=== PATIENT | male | born 1985 | race Caucasian/White ===

== ENCOUNTER 2017-11-10 11:00 | Emergency (ER) | payer OTHER, SELFPAY ==
[2017-11-10 11:18] VITALS: BP 155/107; PULSE 88; RESP 18; TEMP 36.6; O2SAT 99
[2017-11-10] MEDS: HALOPERIDOL 5 MG/ML VIAL IV (11:42)
[2017-11-10] MEDS: SODIUM CHLORIDE 0.9% 1,000 ML 1000 ML IV ×2 (11:42→12:53)
[2017-11-10] MEDS: LORazepam 2 MG/ML SYRINGE IV (11:48)
[2017-11-10 11:51] LABS: Add Manual Diff / Slide Review NO; Basophils Percent Auto 0.6 % (0-2); Eosinophils Percent Auto 0.1 % (2-4); Hematocrit 44.7 % (41-53); Hemoglobin 15.7 g/dL (13.5-17.5); Lymphocytes Percent Auto 16.3 % (25-40); Mean Corpuscular HGB Conc 35.1 % (30-36); Mean Corpuscular Hemoglobin 29.4 PG (26-34); Mean Corpuscular Volume 83.7 fL (80-100); Monocytes Percent Auto 3.4 % (3-14); Neutrophils Absolute Auto 9800 /uL (3000-5900); Neutrophils Percent Auto 79.6 % (50-75); Platelet Count 372 X10^3/uL (150-400); Red Blood Cell Count 5.34 X10^6/uL (4.5-5.9); Red Cell Distribution Width 13.4 % (11.6-14.8); White Blood Cell Count 12.4 X10^3/uL (4.5-11.0)
[2017-11-10 12:00] LABS: Alanine Aminotransferase 53 IU/L (21-72); Albumin 4.6 g/dL (3.5-5.0); Albumin Globulin Ratio 1.4 (1.0-2.8); Alkaline Phosphatase 65 U/L (38-126); Aspartate Aminotransferase 37 IU/L (17-59); BUN Creatinine Ratio 21.4 (6-22); Bilirubin Total 0.7 mg/dL (0.2-1.3); Blood Urea Nitrogen 15 mg/dL (9-20); Calcium 9.9 mg/dL (8.4-10.2); Carbon Dioxide 24 mmol/L (22-32); Chloride 102 mmol/L (98-107); Estimated Glomerular Filt Rate > 60.0 mL/min (>60); Globulin 3.3 g/dL (1.7-4.1); Glucose 114 mg/dL (70-100); HEMOLYSIS 17 (0-50); Potassium 3.5 mmol/L (3.4-5.1); Sodium 141 mmol/L (137-145); Total Protein 7.9 g/dL (6.3-8.2)
[2017-11-10 12:01] VITALS: BP 165/94; PULSE 74; RESP 18; O2SAT 98
[2017-11-10 12:14] VITALS: BP 155/86; PULSE 74; RESP 16; O2SAT 98
[2017-11-10 12:26] LABS: Procalcitonin < 0.05 ng/mL (<0.5)
[2017-11-10 12:54] VITALS: BP 147/82; PULSE 72; RESP 14; O2SAT 96
[2017-11-10] MEDS: HALOPERIDOL 5 MG/ML VIAL 3 MG IV (13:32)
[2017-11-10] MEDS: LORazepam 2 MG/ML SYRINGE 1 MG IV (13:32)
--- NOTE | 2017-11-10 13:40 | ED.ABDPAIN ---
HPI - Abdominal Pain General Chief Complaint: Abdominal Pain Stated Complaint: nausea,vomiting, benzo withdrawls History of Present Illness HPI narrative: HPI 32-year-old male with schizophrenia presents for evaluation of several days of nausea, vomiting, and difficulty keeping his medications down (haloperidol, clonazepam, gabapentin, escitalopram); patient reports regular every marijuana usage, partial relief with hot showers, and a correlation with prior episodes of nausea and vomiting following marijuana usage. No fevers or chills. No diarrhea. M/S/F/SocHx notable for: please see HPI; remainder reviewed with patient and in chart. ROS: Negative constitutional, eye, cardiovascular, pulmonary, GI, , MSK, skin, neurologic, psychiatric, endocrine unless noted in the HPI. Exam Gen: Pleasant, non-toxic appearing, resting comfortably. HEENT: NC, AT, PEERL, EOMI. Resp: Clear to auscultation bilaterally, normal work of breathing, no accessory muscle usage. Card: Regular rate and rhythm with no murmurs, rubs, or gallops, extremities warm and well perfused. GI: Non-tender to palpation throughout all quadrants, no focal tenderness at McBurney's point, negative Mortensen's sign, non-distended, no rebound or guarding. : No suprapubic tenderness to palpation. MSK: No visible deformities, strength and tone without visually appreciable deficit. Skin: Normal color with no visible lesions. Neuro: AO x 3, no facial asymmetry, vision and hearing WNL. Psych: unusual mood and affect Labs / Imaging: WBC 12.4, hemoglobin 15.7, sodium 141, potassium 3.5, Procalcitonin less than 0.05. MDM Previous chart, nursing note, labs, imaging, and vitals reviewed. A: 32-year-old male with schizophrenia presents for evaluation of several days of nausea, vomiting, and difficulty keeping his medications down (haloperidol, clonazepam, gabapentin, escitalopram); patient reports regular every marijuana usage, partial relief with hot showers, and a correlation with prior episodes of nausea and vomiting following marijuana usage. DDx: dehydration, electrolyte abnormalities, drug withdraw, cannabinoid hyperemesis syndrome, gastroenteritis. Evaluation: given overall history strongly suspect cannabinoid hyperemesis syndrome with secondary dehydration, no significant electrolyte abnormalities. Patient given 2 L normal saline with resumption of urine output. 5 mg haloperidol and 2 mg Ativan IV given with significant improvement of symptoms, no sedation. Further 3 mg haloperidol 1 mg Ativan given for further symptomatic treatment. Patient advised to avoid marijuana. Impression: dehydration, suspected cannabinoid hyperemesis syndrome. (please reference below for remainder of encounter information) Related Data Home Medications Medication Instructions Recorded Confirmed alprazolam 0.5 - 1 mg PO BID 11/10/17 11/10/17 asenapine [Saphris (black mcgill)] 10 mg SUBLINGUAL BID 11/10/17 11/10/17 clonazepam 1 tab PO TID 11/10/17 11/10/17 escitalopram oxalate 20 mg PO DAILY 11/10/17 11/10/17 fluphenazine HCl 1 dose PO DIRECTED 11/10/17 11/10/17 fluvoxamine 1 dose PO DIRECTED 11/10/17 11/10/17 gabapentin 1 tab PO TID 11/10/17 11/10/17 haloperidol 10 mg PO BID PRN 11/10/17 11/10/17 hydroxyzine pamoate 25 - 50 mg PO TID PRN 11/10/17 11/10/17 lorazepam 1 dose PO DIRECTED 11/10/17 11/10/17 paliperidone 1 tab PO DAILY 11/10/17 11/10/17 propranolol 20 - 40 mg PO TID 11/10/17 11/10/17 quetiapine 1 dose PO DIRECTED 11/10/17 11/10/17 Previous Rx's Medication Instructions Recorded suvorexant [Belsomra] 20 mg PO QHS #30 tab 10/09/16 Allergies Allergy/AdvReac Type Severity Reaction Status Date / Time cephalexin Allergy Mild RASH Verified 11/10/17 11:22 Exam Initial Vital Signs Initial Vital Signs: Vital Signs Temperature 97.8 F 11/10/17 11:18 Pulse Rate 88 11/10/17 11:18 Respiratory Rate 18 11/10/17 11:18 Blood Pressure 155/107 H 11/10/17 11:18 Pulse Oximetry 99 11/10/17 11:18 Course Orders Ordered: ED Orders 11/10/17 10:34 Complete Blood Count AUTO DIFF Stat Comprehensive Metabolic Panel Stat Procalcitonin Stat Sodium Chloride (Normal Saline 0.9%) 1,000 mls @ 1,000 mls/hr IV BOLUS ONE Stop: 11/10/17 13:51 Last Admin: 11/10/17 12:53 Dose: 1,000 mls/hr Discontinued Medications Haloperidol (Haldol) 5 mg IV NOW ONE Stop: 11/10/17 11:41 Last Admin: 11/10/17 11:42 Dose: 5 mg Haloperidol (Haldol) 3 mg IV NOW ONE Stop: 11/10/17 13:26 Last Admin: 11/10/17 13:32 Dose: 3 mg Sodium Chloride (Normal Saline 0.9%) 1,000 mls @ 1,000 mls/hr IV BOLUS ONE Stop: 11/10/17 12:39 Last Infusion: 11/10/17 12:52 Dose: 0 mls/hr Admin: 11/10/17 11:42 Dose: 1,000 mls/hr Lorazepam (Ativan) 2 mg IV NOW ONE Stop: 11/10/17 11:44 Last Admin: 11/10/17 11:48 Dose: 2 mg Lorazepam (Ativan) 1 mg IV NOW ONE Stop: 11/10/17 13:26 Last Admin: 11/10/17 13:32 Dose: 1 mg Vital Signs - 8 hr 11/10/17 11:18 11/10/17 12:01 11/10/17 12:14 Temperature 97.8 F Pulse Rate 88 74 74 Respiratory Rate 18 18 16 Blood Pressure 155/107 H Blood Pressure [Left Arm] 165/94 H 155/86 H Pulse Oximetry 99 98 98 11/10/17 12:54 Temperature Pulse Rate 72 Respiratory Rate 14 Blood Pressure Blood Pressure [Left Arm] 147/82 H Pulse Oximetry 96 MDM - Abdominal Pain Lab Data Result diagrams: 11/10/17 10:34 11/10/17 10:34 Lab Results 11/10/17 11/10/17 11/10/17 Range/Units 10:34 10:34 10:34 WBC 12.4 H (4.5-11.0) X10^3/uL RBC 5.34 (4.5-5.9) X10^6/uL Hgb 15.7 (13.5-17.5) g/dL Hct 44.7 (41-53) % MCV 83.7 (80-100) fL MCH 29.4 (26-34) PG MCHC 35.1 (30-36) % RDW 13.4 (11.6-14.8) % Plt Count 372 (150-400) X10^3/uL Neut % (Auto) 79.6 H (50-75) % Lymph % (Auto) 16.3 L (25-40) % [place] % (Auto) 3.4 (3-14) % Eos % (Auto) 0.1 L (2-4) % Baso % (Auto) 0.6 (0-2) % Neut # (Auto) 9800 H (0590-0944) /uL Sodium 141 (137-145) mmol/L Potassium 3.5 (3.4-5.1) mmol/L Chloride 102 (98-107) mmol/L Carbon Dioxide 24 (22-32) mmol/L BUN 15 (9-20) mg/dL Creatinine 0.70 (0.66-1.25) mg/dL Estimated GFR > 60.0 (>60) mL/min BUN/Creatinine Ratio 21.4 (6-22) Glucose 114 H (70-100) mg/dL Calcium 9.9 (8.4-10.2) mg/dL Total Bilirubin 0.7 (0.2-1.3) mg/dL AST 37 (17-59) IU/L ALT 53 (21-72) IU/L Alkaline Phosphatase 65 (38-126) U/L Total Protein 7.9 (6.3-8.2) g/dL Albumin 4.6 (3.5-5.0) g/dL Globulin 3.3 (1.7-4.1) g/dL Albumin/Globulin Ratio 1.4 (1.0-2.8) Procalcitonin < 0.05 (<0.5) ng/mL Discharge Plan Departure Prescriptions: No Action suvorexant [Belsomra] 20 MG tablet 20 mg PO QHS Qty: 30 RF: 5 clonazepam 1 mg tablet 1 tab PO TID RF: 0 escitalopram oxalate 20 mg tablet 20 mg PO DAILY RF: 0 gabapentin 600 mg tablet 1 tab PO TID RF: 0 fluphenazine HCl 10 mg tablet 1 dose PO DIRECTED RF: 0 propranolol 40 mg tablet 20 - 40 mg PO TID RF: 0 fluvoxamine 50 mg tablet 1 dose PO DIRECTED RF: 0 hydroxyzine pamoate 25 mg capsule 25 - 50 mg PO TID PRN (Reason: Anxiety) RF: 0 asenapine [Saphris (black mcgill)] 10 mg tablet, sublingual 10 mg Sublingual BID RF: 0 haloperidol 10 MG tablet 10 mg PO BID PRN (Reason: Anxiety) RF: 0 alprazolam 1 mg tablet 0.5 - 1 mg PO BID RF: 0 quetiapine 300 mg tablet 1 dose PO DIRECTED RF: 0 lorazepam 1 mg tablet 1 dose PO DIRECTED RF: 0 paliperidone 1.5 mg tablet extended release 24hr 1 tab PO DAILY RF: 0
[2017-11-10 13:59] VITALS: BP 132/78; PULSE 78; RESP 14; O2SAT 99
== END 2017-11-10 14:05 | disposition home or self-care (01) ==
PROVIDERS: Emergency Provider Emergency Medicine; PCP Family Medicine
DX: E86.0 Dehydration (principal)
CPT/HCPCS: 36591; 80053; 84145; 85025; 96361; 96374; 96375; 96376; 99284; J1630; J2060

== ENCOUNTER 2017-11-11 15:25 | Emergency (ER) | payer OTHER, SELFPAY ==
[2017-11-11 15:34] VITALS: BP 156/102; PULSE 116; RESP 20; O2SAT 99
--- NOTE | 2017-11-11 15:59 | PC.NURSE ---
pt seen yesterday, states, not better, still feels like having withdrawal. admits smokes marijuana yesterday or couple of days ago.
[2017-11-11 16:15] VITALS: BP 160/108; PULSE 105; RESP 24; O2SAT 100
[2017-11-11 16:39] LABS: Add Manual Diff / Slide Review NO; Basophils Percent Auto 0.8 % (0-2); Eosinophils Percent Auto 0.2 % (2-4); Hematocrit 45.3 % (41-53); Hemoglobin 15.8 g/dL (13.5-17.5); Lymphocytes Percent Auto 25.6 % (25-40); Mean Corpuscular HGB Conc 34.8 % (30-36); Mean Corpuscular Hemoglobin 29.3 PG (26-34); Mean Corpuscular Volume 84.3 fL (80-100); Monocytes Percent Auto 6.8 % (3-14); Neutrophils Absolute Auto 7400 /uL (3000-5900); Neutrophils Percent Auto 66.6 % (50-75); Platelet Count 409 X10^3/uL (150-400); Red Blood Cell Count 5.38 X10^6/uL (4.5-5.9); Red Cell Distribution Width 13.1 % (11.6-14.8); White Blood Cell Count 11.2 X10^3/uL (4.5-11.0)
[2017-11-11 16:42] LABS: Blood Urea Nitrogen 12 mg/dL (9-20); Calcium 9.9 mg/dL (8.4-10.2); Carbon Dioxide 22 mmol/L (22-32); Chloride 103 mmol/L (98-107); Estimated Glomerular Filt Rate > 60.0 mL/min (>60); Glucose 111 mg/dL (70-100); HEMOLYSIS 30 (0-50); Potassium 3.5 mmol/L (3.4-5.1); Sodium 141 mmol/L (137-145)
[2017-11-11] MEDS: SODIUM CHLORIDE 0.9% 1,000 ML 1000 ML IV (16:49)
[2017-11-11] MEDS: HALOPERIDOL 5 MG/ML VIAL IV (16:49)
[2017-11-11 16:55] VITALS: BP 160/95; PULSE 102; RESP 20; O2SAT 100
[2017-11-11 17:01] LABS: Lactate (Lactic Acid) 1.9 mmol/L (0.7-2.1)
[2017-11-11 17:17] LABS: Procalcitonin < 0.05 ng/mL (<0.5)
--- NOTE | 2017-11-11 17:19 | PC.NURSE ---
pt deferred cody, states, had a real bad reaction
[2017-11-11] MEDS: HALOPERIDOL 5 MG/ML VIAL 2.5 MG IV (17:37)
[2017-11-11] MEDS: LORazepam 2 MG/ML SYRINGE 1 MG IV (17:38)
[2017-11-11] MEDS: diphenhydrAMINE 50 MG/ML VIAL IV (17:38)
--- NOTE | 2017-11-11 18:09 | ED_ITS ---
HPI - Nausea/Vomiting/Diarrhea General Chief complaint: Nausea/Vomiting/Diarrhea Stated complaint: NAUSEA, VOMITING, MED W'DRAWL History of Present Illness HPI Narrative: HPI 32-year-old male with schizophrenia presents for repeat evaluation of several days of nausea, vomiting. Patient reports regular every day marijuana usage, partial relief with hot showers, and a correlation with prior episodes of nausea and vomiting following marijuana usage. No fevers or chills. No diarrhea. Notes concerning for increased akethesias after stopping Seroquel 2 weeks ago. Seroquel is stopped due to akethesias. M/S/F/SocHx notable for: please see HPI; remainder reviewed with patient and in chart. ROS: Negative constitutional, eye, cardiovascular, pulmonary, GI, , MSK, skin , neurologic, psychiatric, endocrine unless noted in the HPI. Exam Gen: Pleasant, non-toxic appearing, resting comfortably. HEENT: NC, AT, PEERL, EOMI. Resp: Clear to auscultation bilaterally, normal work of breathing, no accessory muscle usage. Card: Regular rate and rhythm with no murmurs, rubs, or gallops, extremities warm and well perfused. GI: Non-tender to palpation throughout all quadrants, no focal tenderness at McBurney's point, negative Mortensen's sign, non-distended, no rebound or guarding. : No suprapubic tenderness to palpation. MSK: No visible deformities, strength and tone without visually appreciable deficit. Skin: Normal color with no visible lesions. Neuro: AO x 3, no facial asymmetry, vision and hearing WNL. Psych: unusual mood and affect Labs / Imaging: WC 11.2, HB 15.8, sodium 141, potassium 3.5, lactate 1.9, pro- calcitonin < 0.05 MDM Previous chart, nursing note, labs, imaging, and vitals reviewed. A: 32-year-old male with schizophrenia presents for evaluation of several days of nausea, vomiting, and difficulty keeping his medications down (haloperidol, clonazepam, gabapentin, escitalopram); patient reports regular every marijuana usage, partial relief with hot showers, and a correlation with prior episodes of nausea and vomiting following marijuana usage. DDx: dehydration, electrolyte abnormalities, drug withdraw, cannabinoid hyperemesis syndrome, gastroenteritis. Evaluation: patient with a benign exam, downtrending leukocytosis, and no clear evidence of bacterial enteritis or septicemia. Laboratory values without evidence of clinically significant dehydration or electrolyte abnormalities. ED Course: 5 mg IV haloperidol, 1 mg IV Cogentin, and 1 L normal saline ordered. While patient noted they never took Cogentin before, upon administration the patient declined as he feels like he may have had an adverse reaction to it previously. 50 mg IV diphenhydramine ordered. As the patient ongoing mild symptoms and no signs of sedation 2.5 mg IV haloperidol and 1 mg Ativan were ordered for further treatment. Disposition: patient care transfer to the overnight provider pending repeat evaluation. Impression: nausea, vomiting (please reference below for remainder of encounter information) Related Data Home Medications Medication Instructions Recorded Confirmed alprazolam 0.5 - 1 mg PO BID 11/10/17 11/11/17 asenapine [Saphris (black mcgill)] 10 mg SUBLINGUAL BID 11/10/17 11/11/17 clonazepam 1 tab PO TID 11/10/17 11/11/17 escitalopram oxalate 20 mg PO DAILY 11/10/17 11/11/17 fluphenazine HCl 1 dose PO DIRECTED 11/10/17 11/11/17 fluvoxamine 1 dose PO DIRECTED 11/10/17 11/11/17 gabapentin 1 tab PO TID 11/10/17 11/11/17 haloperidol 10 mg PO BID PRN 11/10/17 11/11/17 hydroxyzine pamoate 25 - 50 mg PO TID PRN 11/10/17 11/11/17 lorazepam 1 dose PO DIRECTED 11/10/17 11/11/17 paliperidone 1 tab PO DAILY 11/10/17 11/11/17 propranolol 20 - 40 mg PO TID 11/10/17 11/11/17 quetiapine 1 dose PO DIRECTED 11/10/17 11/11/17 Previous Rx's Medication Instructions Recorded suvorexant [Belsomra] 20 mg PO QHS #30 tab 10/09/16 promethazine 25 mg rectal 25 mg [place] Q6H PRN #12 each 11/10/17 suppository Allergies Allergy/AdvReac Type Severity Reaction Status Date / Time cephalexin Allergy Mild RASH Verified 11/10/17 11:22 PFSH Social History Smoking Status: Current some day smoker Exam Initial Vital Signs Initial Vital Signs: Vital Signs Pulse Rate 116 H 11/11/17 15:34 Respiratory Rate 20 11/11/17 15:34 Blood Pressure 156/102 H 11/11/17 15:34 Pulse Oximetry 99 11/11/17 15:34 Course Orders Ordered: ED Orders 11/11/17 15:41 Basic Metabolic Panel Stat Complete Blood Count AUTO DIFF Stat Procalcitonin Stat 11/11/17 16:21 Lactate (Lactic Acid) Stat 11/11/17 16:22 Rapid Drug Screen, Urine Stat 11/11/17 16:24 Urinalysis and Microscopic Stat Discontinued Medications Benztropine Mesylate (Cogentin) 1 mg IV NOW ONE Stop: 11/11/17 16:23 Diphenhydramine HCl (Benadryl) 50 mg IV NOW ONE Stop: 11/11/17 17:27 Last Admin: 11/11/17 17:38 Dose: 50 mg Haloperidol (Haldol) 5 mg IV NOW ONE Stop: 11/11/17 16:23 Last Admin: 11/11/17 16:49 Dose: 5 mg Haloperidol (Haldol) 2.5 mg IV NOW ONE Stop: 11/11/17 17:27 Last Admin: 11/11/17 17:37 Dose: 2.5 mg Sodium Chloride (Normal Saline 0.9%) 1,000 mls @ 1,000 mls/hr IV BOLUS ONE Stop: 11/11/17 17:21 Last Admin: 11/11/17 16:49 Dose: 1,000 mls/hr Lorazepam (Ativan) 1 mg IV NOW ONE Stop: 11/11/17 17:27 Last Admin: 11/11/17 17:38 Dose: 1 mg Vital Signs - 8 hr 11/11/17 15:34 11/11/17 16:15 11/11/17 16:55 Pulse Rate 116 H 105 H 102 H Respiratory Rate 20 24 20 Blood Pressure 156/102 H Blood Pressure [Left Arm] 160/95 H Blood Pressure [Right Arm] 160/108 H Pulse Oximetry 99 100 100 MDM - Nausea/Vomiting/Diarrhea Lab Data Result diagrams: 11/11/17 15:41 11/11/17 15:41 Lab Results 11/11/17 11/11/17 11/11/17 Range/Units 15:41 15:41 15:41 WBC 11.2 H (4.5-11.0) X10^3/uL RBC 5.38 (4.5-5.9) X10^6/uL Hgb 15.8 (13.5-17.5) g/dL Hct 45.3 (41-53) % MCV 84.3 (80-100) fL MCH 29.3 (26-34) PG MCHC 34.8 (30-36) % RDW 13.1 (11.6-14.8) % Plt Count 409 H (150-400) X10^3/uL Neut % (Auto) 66.6 (50-75) % Lymph % (Auto) 25.6 (25-40) % [place] % (Auto) 6.8 (3-14) % Eos % (Auto) 0.2 L (2-4) % Baso % (Auto) 0.8 (0-2) % Neut # (Auto) 7400 H (2387-7066) /uL Sodium 141 (137-145) mmol/L Potassium 3.5 (3.4-5.1) mmol/L Chloride 103 (98-107) mmol/L Carbon Dioxide 22 (22-32) mmol/L BUN 12 (9-20) mg/dL Creatinine 0.80 (0.66-1.25) mg/dL Estimated GFR > 60.0 (>60) mL/min BUN/Creatinine Ratio 15.0 (6-22) Glucose 111 H (70-100) mg/dL Lactate (0.7-2.1) mmol/L Calcium 9.9 (8.4-10.2) mg/dL Procalcitonin < 0.05 (<0.5) ng/mL 11/11/17 Range/Units 16:21 WBC (4.5-11.0) X10^3/uL RBC (4.5-5.9) X10^6/uL Hgb (13.5-17.5) g/dL Hct (41-53) % MCV (80-100) fL MCH (26-34) PG MCHC (30-36) % RDW (11.6-14.8) % Plt Count (150-400) X10^3/uL Neut % (Auto) (50-75) % Lymph % (Auto) (25-40) % [place] % (Auto) (3-14) % Eos % (Auto) (2-4) % Baso % (Auto) (0-2) % Neut # (Auto) (1775-4016) /uL Sodium (137-145) mmol/L Potassium (3.4-5.1) mmol/L Chloride (98-107) mmol/L Carbon Dioxide (22-32) mmol/L BUN (9-20) mg/dL Creatinine (0.66-1.25) mg/dL Estimated GFR (>60) mL/min BUN/Creatinine Ratio (6-22) Glucose (70-100) mg/dL Lactate 1.9 (0.7-2.1) mmol/L Calcium (8.4-10.2) mg/dL Procalcitonin (<0.5) ng/mL Discharge Plan Departure Prescriptions: No Action suvorexant [Belsomra] 20 MG tablet 20 mg PO QHS Qty: 30 RF: 5 promethazine 25 mg suppository 25 mg VA Q6H PRN (Reason: nausea and vomiting) Qty: 12 RF: 2 clonazepam 1 mg tablet 1 tab PO TID RF: 0 escitalopram oxalate 20 mg tablet 20 mg PO DAILY RF: 0 gabapentin 600 mg tablet 1 tab PO TID RF: 0 fluphenazine HCl 10 mg tablet 1 dose PO DIRECTED RF: 0 propranolol 40 mg tablet 20 - 40 mg PO TID RF: 0 fluvoxamine 50 mg tablet 1 dose PO DIRECTED RF: 0 hydroxyzine pamoate 25 mg capsule 25 - 50 mg PO TID PRN (Reason: Anxiety) RF: 0 asenapine [Saphris (black mcgill)] 10 mg tablet, sublingual 10 mg Sublingual BID RF: 0 haloperidol 10 MG tablet 10 mg PO BID PRN (Reason: Anxiety) RF: 0 alprazolam 1 mg tablet 0.5 - 1 mg PO BID RF: 0 quetiapine 300 mg tablet 1 dose PO DIRECTED RF: 0 lorazepam 1 mg tablet 1 dose PO DIRECTED RF: 0 paliperidone 1.5 mg tablet extended release 24hr 1 tab PO DAILY RF: 0
[2017-11-11 18:14] VITALS: BP 134/96; PULSE 87; O2SAT 97
--- NOTE | 2017-11-11 18:37 | PC.NURSE ---
dr newton aware, no urine obtained, may dc when ready
== END 2017-11-11 18:44 | disposition home or self-care (01) ==
PROVIDERS: Emergency Provider Emergency Medicine; PCP Family Medicine
DX: R11.2 Nausea with vomiting, unspecified (principal)
CPT/HCPCS: 36415; 36591; 80048; 83605; 84145; 85025; 96361; 96374; 96375; 96376; 99283; 99284; J1200; J1630; J2060

== ENCOUNTER 2017-11-11 18:56 | Emergency (ER) | payer OTHER, MEDICAID, SELFPAY ==
[2017-11-11 19:23] VITALS: BP 159/98; PULSE 99; RESP 20; TEMP 36.7; O2SAT 99
--- NOTE | 2017-11-11 20:55 | ED.NAVMDI ---
HPI - Nausea/Vomiting/Diarrhea General Chief complaint: Nausea/Vomiting/Diarrhea Stated complaint: VOMITING Time Seen by Provider: 11/11/17 20:55 Source: patient and family Mode of arrival: ambulatory Limitations: no limitations History of Present Illness HPI Narrative: Patient returns to the emergency department for re-evaluation of his agitation and nausea. He has been seen and evaluated with very thorough workups a few times this week. These workups include significant lab evaluation along with fluids with essentially normal results. He was here earlier today as well. He has been feeling off for the past few weeks and symptoms seem to have started with some changes in his mental health medications. His antipsychotic medication has been changed as well as some other dosing regimens. He has developed increasing nausea and even some vomiting resulting in his inability to take a most of his medications. He denies fever or chills. He is not dizzy nor weak or lightheaded. He does feel a bit agitated and is pacing in the room. MD complaint: nausea and vomiting Onset (ago): day(s) Description of Vomiting: food contents Description of Diarrhea: none Associated Abdominal Pain: No Context: marijuana use Associated symptoms: anxiety Related Data Home Medications Medication Instructions Recorded Confirmed alprazolam 0.5 - 1 mg PO BID 11/10/17 11/11/17 asenapine [Saphris (black mcgill)] 10 mg SUBLINGUAL BID 11/10/17 11/11/17 clonazepam 1 tab PO TID 11/10/17 11/11/17 escitalopram oxalate 20 mg PO DAILY 11/10/17 11/11/17 fluphenazine HCl 1 dose PO DIRECTED 11/10/17 11/11/17 fluvoxamine 1 dose PO DIRECTED 11/10/17 11/11/17 gabapentin 1 tab PO TID 11/10/17 11/11/17 haloperidol 10 mg PO BID PRN 11/10/17 11/11/17 hydroxyzine pamoate 25 - 50 mg PO TID PRN 11/10/17 11/11/17 lorazepam 1 dose PO DIRECTED 11/10/17 11/11/17 paliperidone 1 tab PO DAILY 11/10/17 11/11/17 propranolol 20 - 40 mg PO TID 11/10/17 11/11/17 quetiapine 1 dose PO DIRECTED 11/10/17 11/11/17 Previous Rx's Medication Instructions Recorded suvorexant [Belsomra] 20 mg PO QHS #30 tab 10/09/16 promethazine 25 mg rectal 25 mg [place] Q6H PRN #12 each 11/10/17 suppository Allergies Allergy/AdvReac Type Severity Reaction Status Date / Time cephalexin Allergy Mild RASH Verified 11/10/17 11:22 Review of Systems Review of Systems All systems reviewed & are unremarkable except as noted in HPI and below Constitutional Reports anorexia, Denies chills, Denies fever(s), Denies lethargy, Reports poor appetite and Denies weakness Eyes Denies change in vision, Denies eye discharge, Denies irritation and Denies loss of vision ENT Ears, Nose, Mouth, and Throat: Denies change in voice, Denies neck pain and Denies sore throat Cardiovascular Denies chest pain, Denies irregular heart rhythm, Denies lightheadedness, Denies palpitations, Denies dyspnea, Denies dyspnea on exertion and Denies orthopnea Respiratory Denies cough, Denies dyspnea, Denies dyspnea on exertion and Denies wheezing Gastrointestinal Gastrointestinal: Denies abdominal pain, Denies change in bowel habits, Denies diarrhea, Reports nausea and Reports vomiting Genitourinary Denies hematuria, Denies flank pain, Denies urinary incontinence and Denies urinary urgency Musculoskeletal Denies neck pain Integumentary/Breasts Denies pruritus, Denies erythema, Denies rash and Denies wounds Neurologic Reports behavioral changes, Denies confusion, Denies loss of vision and Denies weakness Psychiatric Reports abnormal sleep pattern, Reports anxiety, Reports behavioral changes, Denies confusion, Denies depression, Denies homicidal ideation and Denies suicidal ideation Endocrine Denies palpitations Hematologic/Lymphatic Denies easy bruising Allergic/Immunologic Denies wheezing PFSH Social History Smoking Status: Current some day smoker Exam Narrative Exam Narrative: Pleasant but slightly agitated 32-year-old male pacing the room. He denies auditory or visual hallucinations Initial Vital Signs Initial Vital Signs: Vital Signs Temperature 98.0 F 11/11/17 19:23 Pulse Rate 99 H 11/11/17 19:23 Respiratory Rate 20 11/11/17 19:23 Blood Pressure 159/98 H 11/11/17 19:23 Pulse Oximetry 99 11/11/17 19:23 Const General: cooperative and well developed Nutritional Appearance: well nourished Orientation: alert, awake, oriented x3 and not confused [facility] Head: normocephalic and atraumatic Ears: external ears normal and TM's normal bilaterally Nose: external nose normal and No nasal discharge Face and sinus: sinuses nontender, face symmetric, no sinus tenderness and No dry mucous membranes Mouth: oral mucosae normal and moist mucous membranes Teeth and gingiva: dentition normal Throat: tonsils normal and uvula midline Neck Neck: normal visual inspection, trachea midline, No lymphadenopathy, No midline deformity and No JVD Lymphatic: No lymphedema Resp Effort & Inspection: normal respiratory effort, able to speak in complete sentences, no respiratory distress and no use of accessory muscles Auscultation: clear to auscultation bilaterally, no rales, no rhonchi and no wheezes GI Inspection: non-distended Palpation: soft, no hepatosplenomegaly, No guarding, No pulsatile mass and No tender Auscultation: normal bowel sounds Back/Spine/Pelvis Back: No CVA tenderness Cervical Spine: cervical ROM normal and No pain with cervical ROM Thoracic/Lumbar Spine: thoracic and lumbar spine normal to inspection Skin General: no rashes or lesions noted, No jaundice and No petechiae Neuro General: alert, awake and oriented x3 Psych Appearance: well kempt Speech and Movement: agitated and pressured speech Mood: congruent mood Affect: normal affect Attitude: cooperative Thought Process: normal Thought Content: normal Judgment: judgment good Course Orders Ordered: Discontinued Medications Gabapentin (Neurontin) 600 mg PO NOW ONE Stop: 11/11/17 22:09 Last Admin: 11/11/17 22:59 Dose: 600 mg Haloperidol (Haldol) 5 mg IM NOW ONE Stop: 11/11/17 21:35 Last Admin: 11/11/17 21:41 Dose: 5 mg Lorazepam (Ativan) 1 mg IM NOW ONE Stop: 11/11/17 21:35 Last Admin: 11/11/17 21:41 Dose: 1 mg Ondansetron HCl (Zofran Odt) 4 mg PO NOW ONE Stop: 11/11/17 21:35 Last Admin: 11/11/17 21:40 Dose: 4 mg Ondansetron HCl (Zofran Odt Prepack) 1 bottle MISC SEEINSTR ONE Stop: 11/12/17 00:07 Last Admin: 11/12/17 00:09 Dose: 1 bottle Vital Signs - 8 hr 06/05/18 19:23 11/11/17 23:05 11/12/17 00:15 Temperature 98.0 F 98.1 F Pulse Rate 99 H 80 93 H Respiratory Rate 20 18 Blood Pressure 159/98 H 175/100 H Blood Pressure [Left Arm] 159/100 H Pulse Oximetry 99 99 97 Discharge Plan Departure Patient Disposition: Home, Self-Care Clinical Impression: Nausea & vomiting Discharge Date/Time: 11/12/17 00:16 Interventions: ED Discharge Assessment Last Done: 11/12/17 00:15 Instructions: DI for Nausea -- Adult Activity Restrictions/Additional Instructions: *You have been diagnosed with [ nausea and vomiting ] *What to do: *Take medications as directed, it is very likely that with a gradual return to normal dosing of your medications that your agitation and nausea will return to baseline *Follow up with Dr. Segundo in the next few days. Please call tomorrow morning for an appointment *Return to ER if you should have any new, worsening or concerning symptoms Prescriptions: No Action suvorexant [Belsomra] 20 MG tablet 20 mg PO QHS Qty: 30 RF: 5 promethazine 25 mg suppository 25 mg [place] Q6H PRN (Reason: nausea and vomiting) Qty: 12 RF: 2 clonazepam 1 mg tablet 1 tab PO TID RF: 0 escitalopram oxalate 20 mg tablet 20 mg PO DAILY RF: 0 gabapentin 600 mg tablet 1 tab PO TID RF: 0 fluphenazine HCl 10 mg tablet 1 dose PO DIRECTED RF: 0 propranolol 40 mg tablet 20 - 40 mg PO TID RF: 0 fluvoxamine 50 mg tablet 1 dose PO DIRECTED RF: 0 hydroxyzine pamoate 25 mg capsule 25 - 50 mg PO TID PRN (Reason: Anxiety) RF: 0 asenapine [Saphris (black mcgill)] 10 mg tablet, sublingual 10 mg Sublingual BID RF: 0 haloperidol 10 MG tablet 10 mg PO BID PRN (Reason: Anxiety) RF: 0 alprazolam 1 mg tablet 0.5 - 1 mg PO BID RF: 0 quetiapine 300 mg tablet 1 dose PO DIRECTED RF: 0 lorazepam 1 mg tablet 1 dose PO DIRECTED RF: 0 paliperidone 1.5 mg tablet extended release 24hr 1 tab PO DAILY RF: 0 Referrals: Prasanth Causey MD [Primary Care Provider] -
[2017-11-11] MEDS: ONDANSETRON 4 MG ODT PO (21:40)
[2017-11-11] MEDS: LORazepam 2 MG/ML SYRINGE 1 MG IM (21:41)
[2017-11-11] MEDS: HALOPERIDOL 5 MG/ML VIAL IM (21:41)
--- NOTE | 2017-11-11 22:45 | PC.NURSE ---
called upstairs about gabapentin x2 since med ordered and order printed upstairs.
[2017-11-11] MEDS: GABAPENTIN 600 MG TABLET PO (22:59)
[2017-11-11 23:05] VITALS: BP 159/100; PULSE 80; O2SAT 99
[2017-11-12] MEDS: ONDANSETRON 4 MG ODT PREPACK 1 BOTTLE MISC (00:09)
[2017-11-12 00:15] VITALS: BP 175/100; PULSE 93; RESP 18; TEMP 36.7; O2SAT 97
== END 2017-11-12 00:16 | disposition home or self-care (01) ==
PROVIDERS: Emergency Provider Emergency Medicine; PCP Family Medicine
DX: R11.2 Nausea with vomiting, unspecified (principal)
CPT/HCPCS: 96372; 99283; J1630; J2060

== ENCOUNTER 2018-07-23 07:05 | Emergency (ER) | payer OTHER, MEDICAID, SELFPAY ==
--- NOTE | 2018-07-23 07:14 | ED.NAVMDI ---
HPI - Nausea/Vomiting/Diarrhea General Chief complaint: Anxiety Stated complaint: NAUSEA,VOMITING Time Seen by Provider: 07/23/18 07:07 Source: patient and family Mode of arrival: ambulatory Limitations: no limitations History of Present Illness HPI Narrative: 33-year-old male with history of smoking and marijuana use and long psychiatric history including schizophrenia presents with persistent vomiting since last evening and now an inability to keep any of his normal meds down. This is a scenario that has happened to him a few times before and it tends to be quite difficult to control. He has Zofran at home which has not provided any relief. He has become quite agitated and is pacing in the room and is visibly anxious. Vomiting multiple times during the exam. He denies any pain and is not dizzy nor weak or lightheaded. Related Data Home Medications Medication Instructions Recorded Confirmed metoprolol tartrate 50 mg tablet 50 mg PO BID 11/20/17 07/23/18 asenapine [Saphris] 10 mg SUBLINGUAL BID 07/23/18 07/23/18 clonazepam 2 mg PO BID 07/23/18 07/23/18 diphenhydramine HCl [Benadryl 50 mg PO BEDTIME 07/23/18 07/23/18 Allergy] gabapentin 300 mg PO BID 07/23/18 07/23/18 gabapentin 600 mg PO BEDTIME 07/23/18 07/23/18 haloperidol 2.5 mg PO BID 07/23/18 07/23/18 Previous Rx's Medication Instructions Recorded sertraline 100 mg tablet 100 mg PO DAILY #30 tab 06/29/18 alprazolam 1 mg tablet 1 mg PO BID #60 tab 07/13/18 prazosin 1 mg capsule 1 mg PO BEDTIME #30 cap 07/17/18 ondansetron 4 mg PO TID-QID PRN #10 tab 07/23/18 promethazine [Phenergan] 25 mg AL Q4-6H PRN #12 each 07/23/18 Allergies Allergy/AdvReac Type Severity Reaction Status Date / Time cephalexin Allergy Mild RASH Verified 07/23/18 07:21 Review of Systems Constitutional Denies chills, Denies fever(s), Denies lethargy and Denies weakness Eyes Denies change in vision, Denies eye discharge, Denies irritation and Denies loss of vision ENT Ears, Nose, Mouth, and Throat: Denies change in voice, Denies neck pain and Denies sore throat Cardiovascular Denies chest pain, Denies irregular heart rhythm, Denies lightheadedness, Denies palpitations, Denies dyspnea, Denies dyspnea on exertion and Denies orthopnea Respiratory Denies cough, Denies dyspnea, Denies dyspnea on exertion and Denies wheezing Gastrointestinal Gastrointestinal: Denies abdominal pain, Denies change in bowel habits, Denies diarrhea, Reports nausea and Reports vomiting Genitourinary Denies hematuria, Denies flank pain, Denies urinary incontinence and Denies urinary urgency Musculoskeletal Denies neck pain Integumentary/Breasts Denies pruritus, Denies erythema, Denies rash and Denies wounds Neurologic Denies confusion, Denies loss of vision and Denies weakness Psychiatric Reports anxiety, Denies confusion, Denies depression, Denies homicidal ideation and Denies suicidal ideation Endocrine Denies palpitations Hematologic/Lymphatic Denies easy bruising Allergic/Immunologic Denies wheezing [facility] Medical History RLS (restless legs syndrome) (Chronic ~1986) Schizophrenia (Chronic ~1992) Surgical History No history of previous surgery (Resolved 02/14/15) Family History Grandfather Heart disease Social History Smoking Status: Current every day smoker Family History Grandfather Heart disease Social History Smoking Status: Current every day smoker Exam Narrative Exam Narrative: GENERAL:33M visibly in distress, anxious pacing in the room vomiting on occasion, pressured speech and a bit paranoid HEAD: Atraumatic. Normocephalic. No temporal or scalp tenderness. EYES: Pupils equal round and reactive. Extraocular motions intact. No scleral icterus. No injection or drainage. ENT: Nose without bleeding, purulent drainage or septal hematoma. Throat without erythema, tonsillar hypertrophy or exudate. Uvula midline. Airway patent. NECK: Trachea midline. No JVD or lymphadenopathy. Supple, nontender, no meningeal signs. CARDIOVASCULAR: Regular rate and rhythm without murmurs, gallops, or rubs. RESPIRATORY: Clear to auscultation. Breath sounds equal bilaterally. No wheezes, rales, or rhonchi. GASTROINTESTINAL: Abdomen soft, non-tender, nondistended. No hepato-splenomegaly, or palpable masses. No guarding. EXTREMITIES: No clubbing, cyanosis, or edema. No joint tenderness, effusion, or edema noted. BACK: Nontender without deformity or crepitance. No flank tenderness. NEURO: AOx3. SKIN: No rash or erythema. Initial Vital Signs Initial Vital Signs: Vital Signs Temperature 96.4 F L 07/23/18 07:21 Pulse Rate 63 07/23/18 07:21 Respiratory Rate 22 07/23/18 07:21 Blood Pressure 155/100 H 07/23/18 07:21 Pulse Oximetry 100 07/23/18 07:21 Course Orders Ordered: Discontinued Medications Clonazepam (Klonopin) 1 mg PO NOW ONE Stop: 07/23/18 13:18 Last Admin: 07/23/18 13:34 Dose: 1 mg Gabapentin (Neurontin) 300 mg PO NOW ONE Stop: 07/23/18 13:18 Last Admin: 07/23/18 13:34 Dose: 300 mg Haloperidol (Haldol) 2 mg IV NOW ONE Stop: 07/23/18 07:44 Last Admin: 07/23/18 08:00 Dose: 2 mg Haloperidol (Haldol) 2 mg IV NOW ONE Stop: 07/23/18 08:41 Last Admin: 07/23/18 08:41 Dose: 2 mg Sodium Chloride (Normal Saline 0.9%) 1,000 mls @ 1,000 mls/hr IV BOLUS ONE Stop: 07/23/18 08:38 Last Infusion: 07/23/18 11:54 Dose: 1,000 mls/hr Admin: 07/23/18 08:00 Dose: 1,000 mls/hr Lorazepam (Ativan) 1 mg IV NOW ONE Stop: 07/23/18 07:40 Last Admin: 07/23/18 08:00 Dose: 1 mg Lorazepam (Ativan) 1 mg IV NOW ONE Stop: 07/23/18 08:42 Last Admin: 07/23/18 08:41 Dose: 1 mg Nicotine (Nicoderm) 21 mg TOP NOW ONE Stop: 07/23/18 13:09 Last Admin: 07/23/18 13:45 Dose: 21 mg Ondansetron HCl (Zofran) 4 mg IV Q4HR PRN PRN Reason: Nausea And Vomiting Last Admin: 07/23/18 08:01 Dose: 4 mg Promethazine HCl (Phenadoz) 25 mg AL NOW ONE Stop: 07/23/18 12:00 Last Admin: 07/23/18 12:22 Dose: 25 mg Reevaluation(s) Reevaluation #1: Patient has some definite improvement of nausea with above-stated medications but his antipsychotic do not seem to be helping, he has ramping up and pacing through the room. He has ripped his IV out and insists upon going outside to smoke a cigarette. While he is briefly departed his mother has contacted his psychiatric provider and we have requested the presence of our medical social workers Reevaluation #2: Patient started feeling much better after rectal promethazine and was able to keep his oral medications down. He and mother able to contract for safety and request discharge, and have elected to leave and will follow up closely with their primary care providers and psychiatric care team. We were unable to elicit the help of our social workers and [facility] and family decided to leave Vital Signs - 8 hr 07/23/18 14:15 Pulse Rate 79 Respiratory Rate 22 Blood Pressure [Right Arm] 163/91 H MDM - Nausea/Vomiting/Diarrhea Lab Data Result diagrams: 07/23/18 07:50 07/23/18 07:50 Lab Results 07/23/18 07/23/18 07/23/18 Range/Units 07:50 07:50 07:50 WBC 12.3 H (4.5-11.0) X10^3/uL RBC 5.55 (4.5-5.9) X10^6/uL Hgb 16.3 (13.5-17.5) g/dL Hct 48.7 (41-53) % MCV 87.7 (80-100) fL MCH 29.3 (26-34) PG MCHC 33.4 (30-36) % RDW 13.9 (11.6-14.8) % Plt Count 310 (150-400) X10^3/uL Neut % (Auto) 84.3 H (50-75) % Lymph % (Auto) 12.0 L (25-40) % [place] % (Auto) 2.6 L (3-14) % Eos % (Auto) 0.1 L (2-4) % Baso % (Auto) 1.0 (0-2) % Neut # (Auto) 26761 H (5614-8100) /uL Lymph # (Auto) 1500 (8380-2021) /uL [place] # (Auto) 300 (0-900) /uL Eos # (Auto) 0 (0-450) /uL Baso # (Auto) 100 (0-100) /uL Sodium 141 (137-145) mmol/L Potassium 3.7 (3.4-5.1) mmol/L Chloride 104 (98-107) mmol/L Carbon Dioxide 24 (22-32) mmol/L BUN 16 (9-20) mg/dL Creatinine 0.80 (0.66-1.25) mg/dL Estimated GFR > 60.0 (>60) mL/min BUN/Creatinine Ratio 20.0 (6-22) Glucose 151 H (70-100) mg/dL Calcium 10.3 H (8.4-10.2) mg/dL TSH 0.75 (0.47-4.68) uIU/mL Thyroxine (T4) 11.70 H (5.5-11.0) ug/dL Urine Opiates Screen (Negative) Ur Oxycodone Screen (Negative) Urine Methadone Screen (Negative) Ur Barbiturates Screen (Negative) U Tricyclic Antidepress (Negative) Ur Phencyclidine Scrn (Negative) Ur Amphetamines Screen (Negative) U Methamphetamines Scrn (Negative) Ur MDMA Scrn (Ecstasy) (Negative) U Benzodiazepines Scrn (Negative) Urine Cocaine Screen (Negative) U Marijuana (THC) Screen (Negative) 07/23/18 Range/Units 11:30 WBC (4.5-11.0) X10^3/uL RBC (4.5-5.9) X10^6/uL Hgb (13.5-17.5) g/dL Hct (41-53) % MCV (80-100) fL MCH (26-34) PG MCHC (30-36) % RDW (11.6-14.8) % Plt Count (150-400) X10^3/uL Neut % (Auto) (50-75) % Lymph % (Auto) (25-40) % [place] % (Auto) (3-14) % Eos % (Auto) (2-4) % Baso % (Auto) (0-2) % Neut # (Auto) (6545-9793) /uL Lymph # (Auto) (1091-1334) /uL [place] # (Auto) (0-900) /uL Eos # (Auto) (0-450) /uL Baso # (Auto) (0-100) /uL Sodium (137-145) mmol/L Potassium (3.4-5.1) mmol/L Chloride (98-107) mmol/L Carbon Dioxide (22-32) mmol/L BUN (9-20) mg/dL Creatinine (0.66-1.25) mg/dL Estimated GFR (>60) mL/min BUN/Creatinine Ratio (6-22) Glucose (70-100) mg/dL Calcium (8.4-10.2) mg/dL TSH (0.47-4.68) uIU/mL Thyroxine (T4) (5.5-11.0) ug/dL Urine Opiates Screen Negative (Negative) Ur Oxycodone Screen Negative (Negative) Urine Methadone Screen Negative (Negative) Ur Barbiturates Screen Negative (Negative) U Tricyclic Antidepress Negative (Negative) Ur Phencyclidine Scrn Negative (Negative) Ur Amphetamines Screen Negative (Negative) U Methamphetamines Scrn Negative (Negative) Ur MDMA Scrn (Ecstasy) Negative (Negative) U Benzodiazepines Scrn Negative (Negative) Urine Cocaine Screen Negative (Negative) U Marijuana (THC) Screen Positive H (Negative) MDM Narrative Medical decision making narrative: Multiple etiologies for patient's symptoms considered including: [ cyclic vomiting, cannabis hyperemesis syndrome, medical noncompliance, gastroenteritis versus other] Patient's symptoms improved or duration of stay with above-stated therapies. Findings and discharge diagnosis discussed with patient/family followed by verbalization of understanding Return precautions discussed with patient/family whom verbalize understanding. Discharge Plan Departure Patient Disposition: Home Clinical Impression: Acute anxiety Vomiting Qualifiers: Vomiting type: unspecified Vomiting Intractability: non-intractable Nausea presence: with nausea Qualified Code(s): R11.2 - Nausea with vomiting, unspecified Discharge Date/Time: 07/23/18 14:28 Interventions: ED Discharge Assessment Last Done: 07/23/18 14:28 Instructions: Anxiety Disorders, DI for Vomiting -- Adult Activity Restrictions/Additional Instructions: *You have been diagnosed with [ acute vomiting ] *What to do: *Take medications as directed *Follow up with your primary care provider in 2-3 days, call for an appointment. Let them know you were seen in the Emergency Department and that we ask that you be seen in follow up *Return to ER if you should have any new, worsening or concerning symptoms Prescriptions: New promethazine [Phenergan] 25 mg suppository 25 mg AL Q4-6H PRN (Reason: nausea and vomiting) Qty: 12 RF: 0 ondansetron 4 mg tablet,disintegrating 4 mg PO TID-QID PRN (Reason: nausea and vomiting) Qty: 10 RF: 0 No Action prazosin 1 mg capsule 1 mg PO BEDTIME Qty: 30 RF: 0 metoprolol tartrate 50 mg tablet 50 mg PO BID RF: 0 sertraline 100 mg tablet 100 mg PO DAILY Qty: 30 RF: 5 alprazolam 1 mg tablet 1 mg PO BID Qty: 60 RF: 1 gabapentin 600 mg tablet 300 mg PO BID RF: 0 clonazepam 2 mg tablet 2 mg PO BID RF: 0 Saphris 10 mg tablet, sublingual 10 mg Sublingual BID RF: 0 gabapentin 600 mg tablet 600 mg PO BEDTIME RF: 0 haloperidol 5 mg tablet 2.5 mg PO BID RF: 0 diphenhydramine HCl [Benadryl Allergy] 25 mg Tablet 50 mg PO BEDTIME RF: 0 Referrals: Prasanth Causey MD [Primary Care Provider] -
[2018-07-23 07:21] VITALS: BP 155/100; PULSE 63; RESP 22; TEMP 35.8; O2SAT 100; BMI 16.4
[2018-07-23 07:59] LABS: Add Manual Diff / Slide Review NO; Basophils Absolute Auto 100 /uL (0-100); Eosinophils Absolute Auto 0 /uL (0-450); Eosinophils Percent Auto 0.1 % (2-4); Hematocrit 48.7 % (41-53); Hemoglobin 16.3 g/dL (13.5-17.5); Lymphocytes Absolute Auto 1500 /uL (1100-4500); Mean Corpuscular HGB Conc 33.4 % (30-36); Mean Corpuscular Hemoglobin 29.3 PG (26-34); Mean Corpuscular Volume 87.7 fL (80-100); Monocytes Absolute Auto 300 /uL (0-900); Monocytes Percent Auto 2.6 % (3-14); Neutrophils Absolute Auto 10400 /uL (1500-7000); Neutrophils Percent Auto 84.3 % (50-75); Platelet Count 310 X10^3/uL (150-400); Red Blood Cell Count 5.55 X10^6/uL (4.5-5.9); Red Cell Distribution Width 13.9 % (11.6-14.8); White Blood Cell Count 12.3 X10^3/uL (4.5-11.0)
[2018-07-23] MEDS: LORazepam 2 MG/ML SYRINGE 1 MG IV ×2 (08:00→08:41)
[2018-07-23] MEDS: HALOPERIDOL 5 MG/ML VIAL 2 MG IV ×2 (08:00→08:41)
[2018-07-23] MEDS: SODIUM CHLORIDE 0.9% 1,000 ML 1000 ML IV (08:00)
[2018-07-23] MEDS: ONDANSETRON 4 MG/2 ML INJ IV (08:01)
[2018-07-23 08:09] LABS: Blood Urea Nitrogen 16 mg/dL (9-20); Calcium 10.3 mg/dL (8.4-10.2); Carbon Dioxide 24 mmol/L (22-32); Chloride 104 mmol/L (98-107); Estimated Glomerular Filt Rate > 60.0 mL/min (>60); Glucose 151 mg/dL (70-100); HEMOLYSIS < 15 (0-50); Potassium 3.7 mmol/L (3.4-5.1); Sodium 141 mmol/L (137-145)
--- NOTE | 2018-07-23 10:39 | PC.NURSE ---
pt given crackers and water for oral challenge.
--- NOTE | 2018-07-23 11:27 | PC.NURSE ---
pt walking out of room with jacket on. i asked pt if i could see his IV site. pt agreed and i placed 2x2 and coban. pt then decided to walk out. pt did return 15min later. pt walking the [place], some jogging. pt is anxious per mom.
[2018-07-23 11:38] LABS: Urine Amphetamines Negative (Negative); Urine Barbiturates Negative (Negative); Urine Benzodiazepines Negative (Negative); Urine Cocaine Negative (Negative); Urine MDMA Negative (Negative); Urine Methadone Negative (Negative); Urine Methamphetamines Negative (Negative); Urine Morphine/Opi cutoff 2000 Negative (Negative); Urine Oxycodone Negative (Negative); Urine Phencyclidine Negative (Negative); Urine Tetrahydrocannabinol Positive (Negative); Urine Tricyclic Antidepressant Negative (Negative)
[2018-07-23 11:58] LABS: Thyroid Stimulating Hormone 0.75 uIU/mL (0.47-4.68)
--- NOTE | 2018-07-23 11:59 | ED_ITS ---
HPI - Nausea/Vomiting/Diarrhea General Chief complaint: Anxiety Stated complaint: NAUSEA,VOMITING Time Seen by Provider: 07/23/18 07:07 Source: patient and family Mode of arrival: ambulatory Limitations: no limitations History of Present Illness HPI Narrative: 33-year-old male with history of smoking and marijuana use and long psychiatric history including schizophrenia presents with persistent vomiting since last evening and now an inability to keep any of his normal meds down. This is a scenario that has happened to him a few times before and it tends to be quite difficult to control. He has Zofran at home which has not provided any relief. He has become quite agitated and is pacing in the room and is visibly anxious. Vomiting multiple times during the exam. He denies any pain and is not dizzy nor weak or lightheaded. Related Data Home Medications Medication Instructions Recorded Confirmed metoprolol tartrate 50 mg tablet 50 mg PO BID 11/20/17 07/23/18 asenapine [Saphris] 10 mg SUBLINGUAL BID 07/23/18 07/23/18 clonazepam 2 mg PO BID 07/23/18 07/23/18 diphenhydramine HCl [Benadryl 50 mg PO BEDTIME 07/23/18 07/23/18 Allergy] gabapentin 300 mg PO BID 07/23/18 07/23/18 gabapentin 600 mg PO BEDTIME 07/23/18 07/23/18 haloperidol 2.5 mg PO BID 07/23/18 07/23/18 Previous Rx's Medication Instructions Recorded sertraline 100 mg tablet 100 mg PO DAILY #30 tab 06/29/18 alprazolam 1 mg tablet 1 mg PO BID #60 tab 07/13/18 prazosin 1 mg capsule 1 mg PO BEDTIME #30 cap 07/17/18 ondansetron 4 mg PO TID-QID PRN #10 tab 07/23/18 promethazine [Phenergan] 25 mg SD Q4-6H PRN #12 each 07/23/18 Allergies Allergy/AdvReac Type Severity Reaction Status Date / Time cephalexin Allergy Mild RASH Verified 07/23/18 07:21 Review of Systems Constitutional Denies chills, Denies fever(s), Denies lethargy and Denies weakness Eyes Denies change in vision, Denies eye discharge, Denies irritation and Denies loss of vision ENT Ears, Nose, Mouth, and Throat: Denies change in voice, Denies neck pain and Denies sore throat Cardiovascular Denies chest pain, Denies irregular heart rhythm, Denies lightheadedness, Denies palpitations, Denies dyspnea, Denies dyspnea on exertion and Denies orthopnea Respiratory Denies cough, Denies dyspnea, Denies dyspnea on exertion and Denies wheezing Gastrointestinal Gastrointestinal: Denies abdominal pain, Denies change in bowel habits, Denies diarrhea, Reports nausea and Reports vomiting Genitourinary Denies hematuria, Denies flank pain, Denies urinary incontinence and Denies urinary urgency Musculoskeletal Denies neck pain Integumentary/Breasts Denies pruritus, Denies erythema, Denies rash and Denies wounds Neurologic Denies confusion, Denies loss of vision and Denies weakness Psychiatric Reports anxiety, Denies confusion, Denies depression, Denies homicidal ideation and Denies suicidal ideation Endocrine Denies palpitations Hematologic/Lymphatic Denies easy bruising Allergic/Immunologic Denies wheezing [facility] Medical History RLS (restless legs syndrome) (Chronic ~1986) Schizophrenia (Chronic ~1992) Surgical History No history of previous surgery (Resolved 02/14/15) Family History Grandfather Heart disease Social History Smoking Status: Current every day smoker Family History Grandfather Heart disease Social History Smoking Status: Current every day smoker Exam Narrative Exam Narrative: GENERAL:33M visibly in distress, anxious pacing in the room vomiting on occasion, pressured speech and a bit paranoid HEAD: Atraumatic. Normocephalic. No temporal or scalp tenderness. EYES: Pupils equal round and reactive. Extraocular motions intact. No scleral icterus. No injection or drainage. ENT: Nose without bleeding, purulent drainage or septal hematoma. Throat without erythema, tonsillar hypertrophy or exudate. Uvula midline. Airway patent. NECK: Trachea midline. No JVD or lymphadenopathy. Supple, nontender, no mening eal signs. CARDIOVASCULAR: Regular rate and rhythm without murmurs, gallops, or rubs. RESPIRATORY: Clear to auscultation. Breath sounds equal bilaterally. No wheezes, rales, or rhonchi. GASTROINTESTINAL: Abdomen soft, non-tender, nondistended. No hepato- splenomegaly, or palpable masses. No guarding. EXTREMITIES: No clubbing, cyanosis, or edema. No joint tenderness, effusion, or edema noted. BACK: Nontender without deformity or crepitance. No flank tenderness. NEURO: AOx3. SKIN: No rash or erythema. Initial Vital Signs Initial Vital Signs: Vital Signs Temperature 96.4 F L 07/23/18 07:21 Pulse Rate 63 07/23/18 07:21 Respiratory Rate 22 07/23/18 07:21 Blood Pressure 155/100 H 07/23/18 07:21 Pulse Oximetry 100 07/23/18 07:21 Course Orders Ordered: Discontinued Medications Clonazepam (Klonopin) 1 mg PO NOW ONE Stop: 07/23/18 13:18 Last Admin: 07/23/18 13:34 Dose: 1 mg Gabapentin (Neurontin) 300 mg PO NOW ONE Stop: 07/23/18 13:18 Last Admin: 07/23/18 13:34 Dose: 300 mg Haloperidol (Haldol) 2 mg IV NOW ONE Stop: 07/23/18 07:44 Last Admin: 07/23/18 08:00 Dose: 2 mg Haloperidol (Haldol) 2 mg IV NOW ONE Stop: 07/23/18 08:41 Last Admin: 07/23/18 08:41 Dose: 2 mg Sodium Chloride (Normal Saline 0.9%) 1,000 mls @ 1,000 mls/hr IV BOLUS ONE Stop: 07/23/18 08:38 Last Infusion: 07/23/18 11:54 Dose: 1,000 mls/hr Admin: 07/23/18 08:00 Dose: 1,000 mls/hr Lorazepam (Ativan) 1 mg IV NOW ONE Stop: 07/23/18 07:40 Last Admin: 07/23/18 08:00 Dose: 1 mg Lorazepam (Ativan) 1 mg IV NOW ONE Stop: 07/23/18 08:42 Last Admin: 07/23/18 08:41 Dose: 1 mg Nicotine (Nicoderm) 21 mg TOP NOW ONE Stop: 07/23/18 13:09 Last Admin: 07/23/18 13:45 Dose: 21 mg Ondansetron HCl (Zofran) 4 mg IV Q4HR PRN PRN Reason: Nausea And Vomiting Last Admin: 07/23/18 08:01 Dose: 4 mg Promethazine HCl (Phenadoz) 25 mg SD NOW ONE Stop: 07/23/18 12:00 Last Admin: 07/23/18 12:22 Dose: 25 mg Reevaluation(s) Reevaluation #1: Patient has some definite improvement of nausea with above- stated medications but his antipsychotic do not seem to be helping, he has ramping up and pacing through the room. He has ripped his IV out and insists upon going outside to smoke a cigarette. While he is briefly departed his mother has contacted his psychiatric provider and we have requested the presence of our medical social workers Reevaluation #2: Patient started feeling much better after rectal promethazine and was able to keep his oral medications down. He and mother able to contract for safety and request discharge, and have elected to leave and will follow up closely with their primary care providers and psychiatric care team. We were unable to elicit the help of our social workers and [facility] and family decided to leave Vital Signs - 8 hr 07/23/18 14:15 Pulse Rate 79 Respiratory Rate 22 Blood Pressure [Right Arm] 163/91 H MDM - Nausea/Vomiting/Diarrhea Lab Data Result diagrams: 07/23/18 07:50 07/23/18 07:50 Lab Results 07/23/18 07/23/18 07/23/18 Range/Units 07:50 07:50 07:50 WBC 12.3 H (4.5-11.0) X10^3/uL RBC 5.55 (4.5-5.9) X10^6/uL Hgb 16.3 (13.5-17.5) g/dL Hct 48.7 (41-53) % MCV 87.7 (80-100) fL MCH 29.3 (26-34) PG MCHC 33.4 (30-36) % RDW 13.9 (11.6-14.8) % Plt Count 310 (150-400) X10^3/uL Neut % (Auto) 84.3 H (50-75) % Lymph % (Auto) 12.0 L (25-40) % [place] % (Auto) 2.6 L (3-14) % Eos % (Auto) 0.1 L (2-4) % Baso % (Auto) 1.0 (0-2) % Neut # (Auto) 08344 H (8924-8136) /uL Lymph # (Auto) 1500 (0584-2729) /uL [place] # (Auto) 300 (0-900) /uL Eos # (Auto) 0 (0-450) /uL Baso # (Auto) 100 (0-100) /uL Sodium 141 (137-145) mmol/L Potassium 3.7 (3.4-5.1) mmol/L Chloride 104 (98-107) mmol/L Carbon Dioxide 24 (22-32) mmol/L BUN 16 (9-20) mg/dL Creatinine 0.80 (0.66-1.25) mg/dL Estimated GFR > 60.0 (>60) mL/min BUN/Creatinine Ratio 20.0 (6-22) Glucose 151 H (70-100) mg/dL Calcium 10.3 H (8.4-10.2) mg/dL TSH 0.75 (0.47-4.68) uIU/mL Thyroxine (T4) 11.70 H (5.5-11.0) ug/dL Urine Opiates Screen (Negative) Ur Oxycodone Screen (Negative) Urine Methadone Screen (Negative) Ur Barbiturates Screen (Negative) U Tricyclic Antidepress (Negative) Ur Phencyclidine Scrn (Negative) Ur Amphetamines Screen (Negative) U Methamphetamines Scrn (Negative) Ur MDMA Scrn (Ecstasy) (Negative) U Benzodiazepines Scrn (Negative) Urine Cocaine Screen (Negative) U Marijuana (THC) Screen (Negative) 07/23/18 Range/Units 11:30 WBC (4.5-11.0) X10^3/uL RBC (4.5-5.9) X10^6/uL Hgb (13.5-17.5) g/dL Hct (41-53) % MCV (80-100) fL MCH (26-34) PG MCHC (30-36) % RDW (11.6-14.8) % Plt Count (150-400) X10^3/uL Neut % (Auto) (50-75) % Lymph % (Auto) (25-40) % [place] % (Auto) (3-14) % Eos % (Auto) (2-4) % Baso % (Auto) (0-2) % Neut # (Auto) (9468-5112) /uL Lymph # (Auto) (8225-2806) /uL [place] # (Auto) (0-900) /uL Eos # (Auto) (0-450) /uL Baso # (Auto) (0-100) /uL Sodium (137-145) mmol/L Potassium (3.4-5.1) mmol/L Chloride (98-107) mmol/L Carbon Dioxide (22-32) mmol/L BUN (9-20) mg/dL Creatinine (0.66-1.25) mg/dL Estimated GFR (>60) mL/min BUN/Creatinine Ratio (6-22) Glucose (70-100) mg/dL Calcium (8.4-10.2) mg/dL TSH (0.47-4.68) uIU/mL Thyroxine (T4) (5.5-11.0) ug/dL Urine Opiates Screen Negative (Negative) Ur Oxycodone Screen Negative (Negative) Urine Methadone Screen Negative (Negative) Ur Barbiturates Screen Negative (Negative) U Tricyclic Antidepress Negative (Negative) Ur Phencyclidine Scrn Negative (Negative) Ur Amphetamines Screen Negative (Negative) U Methamphetamines Scrn Negative (Negative) Ur MDMA Scrn (Ecstasy) Negative (Negative) U Benzodiazepines Scrn Negative (Negative) Urine Cocaine Screen Negative (Negative) U Marijuana (THC) Screen Positive H (Negative) MDM Narrative Medical decision making narrative: Multiple etiologies for patient's symptoms considered including: [ cyclic vomiting, cannabis hyperemesis syndrome, medical noncompliance, gastroenteritis versus other] Patient's symptoms improved or duration of stay with above-stated therapies. Findings and discharge diagnosis discussed with patient/family followed by verbalization of understanding Return precautions discussed with patient/family whom verbalize understanding. Discharge Plan Departure Patient Disposition: Home Clinical Impression: Acute anxiety Vomiting Qualifiers: Vomiting type: unspecified Vomiting Intractability: non-intractable Nausea presence: with nausea Qualified Code(s): R11.2 - Nausea with vomiting, unspecified Discharge Date/Time: 07/23/18 14:28 Interventions: ED Discharge Assessment Last Done: 07/23/18 14:28 Instructions: Anxiety Disorders, DI for Vomiting -- Adult Activity Restrictions/Additional Instructions: *You have been diagnosed with [ acute vomiting ] *What to do: *Take medications as directed *Follow up with your primary care provider in 2-3 days, call for an appointment. Let them know you were seen in the Emergency Department and that we ask that you be seen in follow up *Return to ER if you should have any new, worsening or concerning symptoms Prescriptions: New promethazine [Phenergan] 25 mg suppository 25 mg SD Q4-6H PRN (Reason: nausea and vomiting) Qty: 12 RF: 0 ondansetron 4 mg tablet,disintegrating 4 mg PO TID-QID PRN (Reason: nausea and vomiting) Qty: 10 RF: 0 No Action prazosin 1 mg capsule 1 mg PO BEDTIME Qty: 30 RF: 0 metoprolol tartrate 50 mg tablet 50 mg PO BID RF: 0 sertraline 100 mg tablet 100 mg PO DAILY Qty: 30 RF: 5 alprazolam 1 mg tablet 1 mg PO BID Qty: 60 RF: 1 gabapentin 600 mg tablet 300 mg PO BID RF: 0 clonazepam 2 mg tablet 2 mg PO BID RF: 0 Saphris 10 mg tablet, sublingual 10 mg Sublingual BID RF: 0 gabapentin 600 mg tablet 600 mg PO BEDTIME RF: 0 haloperidol 5 mg tablet 2.5 mg PO BID RF: 0 diphenhydramine HCl [Benadryl Allergy] 25 mg Tablet 50 mg PO BEDTIME RF: 0 Referrals: Prasanth Causey MD [Primary Care Provider] -
[2018-07-23] MEDS: PROMETHAZINE 25 MG SUPP PR (12:22)
[2018-07-23] MEDS: clonazePAM 0.5 MG TABLET 1 MG PO (13:34)
[2018-07-23] MEDS: GABAPENTIN 300 MG CAPSULE PO (13:34)
[2018-07-23] MEDS: NICOTINE 21 MG PATCH TOP (13:45)
[2018-07-23 14:15] VITALS: BP 163/91; PULSE 79; RESP 22
--- NOTE | 2018-07-23 14:15 | PC.NURSE ---
pt has had a cup of ice and water.
--- NOTE | 2018-07-23 14:21 | PC.NURSE ---
called [facility] at 1100. spoke with triage and they are aware of possibility of assistance. pt has been able to hold down water and saltines. pt at 1330 agreed to attempt home meds. if able to keep down pt may go home. mom agrees this is a good plan.
--- NOTE | 2018-07-30 12:01 | PC.NURSE ---
late entry, nicotine patch removed at discharge.
== END 2018-07-23 14:28 | disposition home or self-care (01) ==
PROVIDERS: Emergency Provider Emergency Medicine; PCP Family Medicine
DX: F41.9 Anxiety disorder, unspecified (principal); R11.2 Nausea with vomiting, unspecified
CPT/HCPCS: 36591; 80048; 80305; 84436; 84443; 85025; 96361; 96374; 96375; 96376; 99283; 99284; J1630; J2060; J2405

== ENCOUNTER 2018-07-28 23:47 | Emergency (ER) | payer OTHER, MEDICAID, SELFPAY ==
[2018-07-29] MEDS: LORazepam 2 MG/ML SYRINGE 1 MG IV ×2 (00:24→05:30)
[2018-07-29] MEDS: HALOPERIDOL 5 MG/ML VIAL IV (00:24)
[2018-07-29] MEDS: ONDANSETRON 4 MG/2 ML INJ IV ×2 (00:24→09:33)
[2018-07-29 00:26] VITALS: BP 177/103; PULSE 102; RESP 28; TEMP 37.1; O2SAT 98; BMI 27.9
[2018-07-29 00:26] LABS: Add Manual Diff / Slide Review NO; Basophils Absolute Auto 100 /uL (0-100); Basophils Percent Auto 0.6 % (0-2); Eosinophils Absolute Auto 100 /uL (0-450); Eosinophils Percent Auto 0.5 % (2-4); Hematocrit 48.6 % (41-53); Hemoglobin 15.9 g/dL (13.5-17.5); Lymphocytes Absolute Auto 3000 /uL (1100-4500); Lymphocytes Percent Auto 16.3 % (25-40); Mean Corpuscular HGB Conc 32.8 % (30-36); Mean Corpuscular Hemoglobin 29.2 PG (26-34); Monocytes Absolute Auto 800 /uL (0-900); Monocytes Percent Auto 4.4 % (3-14); Neutrophils Absolute Auto 14300 /uL (1500-7000); Neutrophils Percent Auto 78.2 % (50-75); Platelet Count 317 X10^3/uL (150-400); Red Blood Cell Count 5.46 X10^6/uL (4.5-5.9); Red Cell Distribution Width 14.1 % (11.6-14.8); White Blood Cell Count 18.3 X10^3/uL (4.5-11.0)
[2018-07-29 00:37] LABS: Acetaminophen < 10 ug/mL (10-30); Alanine Aminotransferase 28 IU/L (21-72); Albumin Globulin Ratio 1.7 (1.0-2.8); Alkaline Phosphatase 63 U/L (38-126); Aspartate Aminotransferase 28 IU/L (17-59); BUN Creatinine Ratio 18.9 (6-22); Bilirubin Total 0.4 mg/dL (0.2-1.3); Blood Urea Nitrogen 17 mg/dL (9-20); Calcium 10.3 mg/dL (8.4-10.2); Carbon Dioxide 21 mmol/L (22-32); Chloride 104 mmol/L (98-107); Estimated Glomerular Filt Rate > 60.0 mL/min (>60); Ethanol (ETOH) < 10 mg/dL; Glucose 116 mg/dL (70-100); HEMOLYSIS < 15 (0-50); Potassium 3.9 mmol/L (3.4-5.1); Sodium 142 mmol/L (137-145)
[2018-07-29 00:39] LABS: Salicylate < 1.0 mg/dL (<20)
[2018-07-29] MEDS: diphenhydrAMINE 50 MG/ML VIAL 25 MG IV (00:44)
--- NOTE | 2018-07-29 00:49 | ED.ANXIETY ---
HPI - Anxiety <Chay PerezDO erik - Last Filed: 07/29/18 21:04> General Chief Complaint: Anxiety Stated Complaint: Poss withdrawal md changed rx Time Seen by Provider: 07/28/18 23:48 Source: patient and family Mode of arrival: ambulatory Limitations: no limitations History of Present Illness HPI narrative: 33-year-old male with extensive psychiatric history and recent medication changes presents with his mother of and the chief complaint of ongoing and worsening anxiety. The patient has been going through a rough patch for approximately 1 year which seems to be slowly worsening despite the best efforts of his psychiatric team. They have been attempting to slowly wean his benzodiazepines but he is absolutely not doing well with that approach. 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 He uses upwards of 2 g of marijuana daily and whether this contributes to his frequent episodes of vomiting is unclear. When his vomiting starts it exacerbates his anxiety which is further worsened by his inability to keep his medications down including Ativan and Haldol. He was last seen and evaluated here a few days ago under very similar circumstances and was eventually stabilized before requesting to leave. He has an intake appointment at [facility] tomorrow morning at 8:00 a.m. his mother has been in contact with multiple local psychiatric facilities including [facility] complaint: anxiety and shortness of breath Onset (ago): hour(s) Symptoms: dyspnea and perioral numbness/tingling Severity: moderate Quality: constant Place: home History of similar episodes: Yes Provoking factors: emotional stress and medication change Relieving factors: nothing Exacerbating factors: thinking about event Related Data Home Medications Medication Instructions Recorded Confirmed metoprolol tartrate 50 mg tablet 50 mg PO BID 11/20/17 07/29/18 asenapine [Saphris] 10 mg SUBLINGUAL BID 07/23/18 07/29/18 clonazepam 2 mg PO BID 07/23/18 07/29/18 diphenhydramine HCl [Benadryl 50 mg PO BEDTIME 07/23/18 07/29/18 Allergy] alprazolam 1 mg PO BID 07/29/18 07/29/18 gabapentin 600 mg PO BID 07/29/18 07/29/18 Previous Rx's Medication Instructions Recorded sertraline 100 mg tablet 100 mg PO DAILY #30 tab 06/29/18 prazosin 1 mg capsule 1 mg PO BEDTIME #30 cap 07/17/18 ondansetron 4 mg disintegrating 4 mg PO TID-QID PRN #10 tab 07/27/18 tablet promethazine 25 mg rectal 25 mg MO Q4-6H PRN #12 each 07/27/18 suppository haloperidol 2 mg tablet 2 mg PO BID #60 tab 07/29/18 iloperidone 1 mg tablet 1 mg PO BID #60 tab 07/29/18 Allergies Allergy/AdvReac Type Severity Reaction Status Date / Time cephalexin Allergy Mild RASH Verified 07/27/18 15:56 Review of Systems <Chay Grover DO - Last Filed: 07/29/18 21:04> Constitutional Denies chills, Reports difficulty sleeping, Reports excessive sweating, Denies fever(s), Denies lethargy and Denies weakness Eyes Denies change in vision, Denies eye discharge, Denies irritation and Denies loss of vision ENT Ears, Nose, Mouth, and Throat: Denies change in voice, Denies neck pain and Denies sore throat Cardiovascular Denies chest pain, Denies irregular heart rhythm, Denies lightheadedness, Denies palpitations, Denies dyspnea, Denies dyspnea on exertion and Denies orthopnea Respiratory Denies cough, Denies dyspnea, Denies dyspnea on exertion and Denies wheezing Gastrointestinal Gastrointestinal: Denies abdominal pain, Denies change in bowel habits, Denies diarrhea, Reports nausea and Reports vomiting Genitourinary Denies hematuria, Denies flank pain, Denies urinary incontinence and Denies urinary urgency Musculoskeletal Denies neck pain Integumentary/Breasts Denies pruritus, Denies erythema, Denies rash and Denies wounds Neurologic Reports behavioral changes, Denies confusion, Denies loss of vision and Denies weakness Psychiatric Reports anxiety, Reports behavioral changes, Denies confusion, Denies depression, Denies homicidal ideation and Denies suicidal ideation Endocrine Reports excessive sweating and Denies palpitations Hematologic/Lymphatic Denies easy bruising Allergic/Immunologic Denies wheezing PFSH <Chay Grover DO - Last Filed: 07/29/18 21:04> Medical History RLS (restless legs syndrome) (Chronic ~1986) Schizophrenia (Chronic ~1992) Surgical History No history of previous surgery (Resolved 02/14/15) Family History Grandfather Heart disease Social History Smoking Status: Current every day smoker Family History Grandfather Heart disease Social History Smoking Status: Current every day smoker (vapes every 40 minutes.) Exam <Chay Grover DO - Last Filed: 07/29/18 21:04> Narrative Exam Narrative: GENERAL: 33-year-old male is obviously in significant distress, running laps in the emergency department, rapid shallow breathing, active vomiting, very restless and pacing, diaphoretic HEAD: Atraumatic. Normocephalic. No temporal or scalp tenderness. EYES: Pupils equal round and reactive. Extraocular motions intact. No scleral icterus. No injection or drainage. ENT: Nose without bleeding, purulent drainage or septal hematoma. Throat without erythema, tonsillar hypertrophy or exudate. Uvula midline. Airway patent. NECK: Trachea midline. No JVD or lymphadenopathy. Supple, nontender, no meningeal signs. CARDIOVASCULAR: Regular rate and rhythm without murmurs, gallops, or rubs. RESPIRATORY: Clear to auscultation. Breath sounds equal bilaterally. No wheezes, rales, or rhonchi. GASTROINTESTINAL: Abdomen soft, non-tender, nondistended. No hepato-splenomegaly, or palpable masses. No guarding. EXTREMITIES: No clubbing, cyanosis, or edema. No joint tenderness, effusion, or edema noted. BACK: Nontender without deformity or crepitance. No flank tenderness. NEURO: AOx3. SKIN: No rash or erythema. Diaphoresis PSYCH: Rapid breathing and pressured speech Initial Vital Signs Initial Vital Signs: Vital Signs Temperature 98.7 F 07/29/18 00:26 Pulse Rate 102 H 07/29/18 00:26 Respiratory Rate 28 H 07/29/18 00:26 Blood Pressure 177/103 H 07/29/18 00:26 Pulse Oximetry 98 07/29/18 00:26 <Med Osuna DO - Last Filed: 07/29/18 13:02> Initial Vital Signs Initial Vital Signs: Vital Signs Temperature 98.7 F 07/29/18 00:26 Pulse Rate 102 H 07/29/18 00:26 Respiratory Rate 28 H 07/29/18 00:26 Blood Pressure 177/103 H 07/29/18 00:26 Pulse Oximetry 98 07/29/18 00:26 Course <Chay Grover DO - Last Filed: 07/29/18 21:04> Orders Ordered: Discontinued Medications Diphenhydramine HCl (Benadryl) 25 mg IV NOW ONE Stop: 07/29/18 00:37 Last Admin: 07/29/18 00:44 Dose: 25 mg Haloperidol (Haldol) 5 mg IV NOW ONE Stop: 07/29/18 00:15 Last Admin: 07/29/18 00:24 Dose: 5 mg Haloperidol (Haldol) 5 mg IV NOW ONE Stop: 07/29/18 09:25 Last Admin: 07/29/18 12:24 Dose: Not Given Sodium Chloride (Normal Saline 0.9%) 1,000 mls @ 1,000 mls/hr IV BOLUS ONE Stop: 07/29/18 01:15 Last Infusion: 07/29/18 05:00 Dose: 1,000 mls/hr Admin: 07/29/18 01:12 Dose: 1,000 mls/hr Lorazepam (Ativan) 1 mg IV NOW ONE Stop: 07/29/18 00:15 Last Admin: 07/29/18 00:24 Dose: 1 mg Lorazepam (Ativan) 1 mg IV NOW ONE Stop: 07/29/18 05:48 Last Admin: 07/29/18 05:30 Dose: 1 mg Lorazepam (Ativan) 2 mg IV NOW ONE Stop: 07/29/18 08:37 Last Admin: 07/29/18 08:39 Dose: 2 mg Lorazepam (Ativan) 2 mg IV NOW ONE Stop: 07/29/18 09:29 Last Admin: 07/29/18 09:33 Dose: 2 mg Nicotine (Nicoderm) 21 mg TOP NOW ONE Stop: 07/29/18 05:04 Last Admin: 02/20/19 05:20 Dose: 21 mg Nicotine (Nicoderm) 21 mg TOP NOW ONE Stop: 07/29/18 08:38 Last Admin: 07/29/18 08:37 Dose: 21 mg Olanzapine (Zyprexa Zydis) 10 mg PO NOW ONE Stop: 07/29/18 05:27 Last Admin: 07/29/18 05:30 Dose: 10 mg Ondansetron HCl (Zofran) 4 mg IV NOW ONE Stop: 07/29/18 00:15 Last Admin: 07/29/18 00:24 Dose: 4 mg Ondansetron HCl (Zofran) 4 mg IV NOW ONE Stop: 07/29/18 09:25 Last Admin: 07/29/18 09:33 Dose: 4 mg Promethazine HCl (Phenadoz) 25 mg MO NOW ONE Stop: 07/29/18 00:15 Last Admin: 07/29/18 00:45 Dose: Not Given Reevaluation(s) Reevaluation #1: large doses of various medications including haldol, ativan, and bendaryl are NOT GIVEN WITH INTENT OF SEDATION of patient, merely to treat his very severe symptoms. He is (becoming) well known to myself and requires large doses of medications to help control his symptoms. I verbalized this to patient, his mother, and nursing staff. We are all on the same page. Reevaluation #2: patient resting comfortably with above stated meds. Reevaluation #3: patient now awake, walking through department, requesting ice chips and nicoderm he very rapidly is ramping up, he has pressured speech and is pacing, running through the department and has actually left the department and ran upstairs. His medications are not working, he is gravely disabled. He is unaware of his condition and does not think he needs help. [facility] needs to evaluate patient as it seems clear he has escalated to the point of requiring hospitalization for stabilization Time: 05:05 Vital Signs - 8 hr 07/29/18 13:31 Pulse Rate 107 H Respiratory Rate 20 Blood Pressure 131/98 H Pulse Oximetry 100 <Med Osuna DO - Last Filed: 07/29/18 13:02> Orders Ordered: Discontinued Medications Diphenhydramine HCl (Benadryl) 25 mg IV NOW ONE Stop: 07/29/18 00:37 Last Admin: 07/29/18 00:44 Dose: 25 mg Haloperidol (Haldol) 5 mg IV NOW ONE Stop: 07/29/18 00:15 Last Admin: 07/29/18 00:24 Dose: 5 mg Haloperidol (Haldol) 5 mg IV NOW ONE Stop: 07/29/18 09:25 Last Admin: 07/29/18 12:24 Dose: Not Given Sodium Chloride (Normal Saline 0.9%) 1,000 mls @ 1,000 mls/hr IV BOLUS ONE Stop: 07/29/18 01:15 Last Infusion: 07/29/18 05:00 Dose: 1,000 mls/hr Admin: 07/29/18 01:12 Dose: 1,000 mls/hr Lorazepam (Ativan) 1 mg IV NOW ONE Stop: 07/29/18 00:15 Last Admin: 07/29/18 00:24 Dose: 1 mg Lorazepam (Ativan) 1 mg IV NOW ONE Stop: 07/29/18 05:48 Last Admin: 07/29/18 05:30 Dose: 1 mg Lorazepam (Ativan) 2 mg IV NOW ONE Stop: 07/29/18 08:37 Last Admin: 07/29/18 08:39 Dose: 2 mg Lorazepam (Ativan) 2 mg IV NOW ONE Stop: 07/29/18 09:29 Last Admin: 07/29/18 09:33 Dose: 2 mg Nicotine (Nicoderm) 21 mg TOP NOW ONE Stop: 07/29/18 05:04 Last Admin: 07/29/18 05:20 Dose: 21 mg Nicotine (Nicoderm) 21 mg TOP NOW ONE Stop: 07/29/18 08:38 Last Admin: 07/29/18 08:37 Dose: 21 mg Olanzapine (Zyprexa Zydis) 10 mg PO NOW ONE Stop: 07/29/18 05:27 Last Admin: 07/29/18 05:30 Dose: 10 mg Ondansetron HCl (Zofran) 4 mg IV NOW ONE Stop: 07/29/18 00:15 Last Admin: 07/29/18 00:24 Dose: 4 mg Ondansetron HCl (Zofran) 4 mg IV NOW ONE Stop: 07/29/18 09:25 Last Admin: 07/29/18 09:33 Dose: 4 mg Promethazine HCl (Phenadoz) 25 mg MO NOW ONE Stop: 07/29/18 00:15 Last Admin: 07/29/18 00:45 Dose: Not Given Vital Signs - 8 hr 07/29/18 13:31 Pulse Rate 107 H Respiratory Rate 20 Blood Pressure 131/98 H Pulse Oximetry 100 MDM - Anxiety <Chay Grover DO - Last Filed: 07/29/18 21:04> Lab Data Result diagrams: 07/29/18 07:45 07/29/18 00:20 Lab Results 07/29/18 07/29/18 07/29/18 Range/Units 00:20 00:20 00:20 WBC 18.3 H (4.5-11.0) X10^3/uL RBC 5.46 (4.5-5.9) X10^6/uL Hgb 15.9 (13.5-17.5) g/dL Hct 48.6 (41-53) % MCV 89.0 (80-100) fL MCH 29.2 (26-34) PG MCHC 32.8 (30-36) % RDW 14.1 (11.6-14.8) % Plt Count 317 (150-400) X10^3/uL Neut % (Auto) 78.2 H (50-75) % Lymph % (Auto) 16.3 L (25-40) % [place] % (Auto) 4.4 (3-14) % Eos % (Auto) 0.5 L (2-4) % Baso % (Auto) 0.6 (0-2) % Neut # (Auto) 98901 H (5455-1823) /uL Lymph # (Auto) 3000 (3498-9903) /uL [place] # (Auto) 800 (0-900) /uL Eos # (Auto) 100 (0-450) /uL Baso # (Auto) 100 (0-100) /uL Sodium 142 (137-145) mmol/L Potassium 3.9 (3.4-5.1) mmol/L Chloride 104 (98-107) mmol/L Carbon Dioxide 21 L (22-32) mmol/L BUN 17 (9-20) mg/dL Creatinine 0.90 (0.66-1.25) mg/dL Estimated GFR > 60.0 (>60) mL/min BUN/Creatinine Ratio 18.9 (6-22) Glucose 116 H (70-100) mg/dL Calcium 10.3 H (8.4-10.2) mg/dL Total Bilirubin 0.4 (0.2-1.3) mg/dL AST 28 (17-59) IU/L ALT 28 (21-72) IU/L Alkaline Phosphatase 63 (38-126) U/L Total Protein 8.0 (6.3-8.2) g/dL Albumin 5.0 (3.5-5.0) g/dL Globulin 3.0 (1.7-4.1) g/dL Albumin/Globulin Ratio 1.7 (1.0-2.8) TSH 2.88 D (0.47-4.68) uIU/mL Urine RBC (0-5/HPF) Urine WBC (0-5/HPF) Urine Bacteria (None) Ur Culture Indicated? Salicylates < 1.0 (<20) mg/dL Urine Opiates Screen (Negative) Ur Oxycodone Screen (Negative) Urine Methadone Screen (Negative) Acetaminophen < 10 L (10-30) ug/mL Ur Barbiturates Screen (Negative) U Tricyclic Antidepress (Negative) Ur Phencyclidine Scrn (Negative) Ur Amphetamines Screen (Negative) U Methamphetamines Scrn (Negative) Ur MDMA Scrn (Ecstasy) (Negative) U Benzodiazepines Scrn (Negative) Urine Cocaine Screen (Negative) U Marijuana (THC) Screen (Negative) Ethyl Alcohol < 10 mg/dL 07/29/18 07/29/18 07/29/18 Range/Units 02:26 07:45 11:55 WBC 12.7 H (4.5-11.0) X10^3/uL RBC 5.01 (4.5-5.9) X10^6/uL Hgb 14.7 (13.5-17.5) g/dL Hct 45.0 (41-53) % MCV 89.8 (80-100) fL MCH 29.3 (26-34) PG MCHC 32.6 (30-36) % RDW 14.0 (11.6-14.8) % Plt Count 277 (150-400) X10^3/uL Neut % (Auto) 85.0 H (50-75) % Lymph % (Auto) 9.5 L (25-40) % [place] % (Auto) 4.8 (3-14) % Eos % (Auto) 0.0 L (2-4) % Baso % (Auto) 0.7 (0-2) % Neut # (Auto) 08772 H (2649-9981) /uL Lymph # (Auto) 1200 (6024-4144) /uL [place] # (Auto) 600 (0-900) /uL Eos # (Auto) 0 (0-450) /uL Baso # (Auto) 100 (0-100) /uL Sodium (137-145) mmol/L Potassium (3.4-5.1) mmol/L Chloride (98-107) mmol/L Carbon Dioxide (22-32) mmol/L BUN (9-20) mg/dL Creatinine (0.66-1.25) mg/dL Estimated GFR (>60) mL/min BUN/Creatinine Ratio (6-22) Glucose (70-100) mg/dL Calcium (8.4-10.2) mg/dL Total Bilirubin (0.2-1.3) mg/dL AST (17-59) IU/L ALT (21-72) IU/L Alkaline Phosphatase (38-126) U/L Total Protein (6.3-8.2) g/dL Albumin (3.5-5.0) g/dL Globulin (1.7-4.1) g/dL Albumin/Globulin Ratio (1.0-2.8) TSH (0.47-4.68) uIU/mL Urine RBC None seen (0-5/HPF) Urine WBC None seen (0-5/HPF) Urine Bacteria None seen (None) Ur Culture Indicated? Cult not indicated Salicylates (<20) mg/dL Urine Opiates Screen Negative (Negative) Ur Oxycodone Screen Negative (Negative) Urine Methadone Screen Negative (Negative) Acetaminophen (10-30) ug/mL Ur Barbiturates Screen Negative (Negative) U Tricyclic Antidepress Negative (Negative) Ur Phencyclidine Scrn Negative (Negative) Ur Amphetamines Screen Negative (Negative) U Methamphetamines Scrn Negative (Negative) Ur MDMA Scrn (Ecstasy) Negative (Negative) U Benzodiazepines Scrn Positive H (Negative) Urine Cocaine Screen Negative (Negative) U Marijuana (THC) Screen Positive H (Negative) Ethyl Alcohol mg/dL Urine Dip Bedside Urine Glucose Negative Bedside Urine Bilirubin - Negative Bedside Urine Ketone - Negative Urine Specific [place] 1.015 Bedside Urine Occult Blood - Negative Bedside Urine pH 6.0 Bedside Urine Protein - Negative Bedside Urine Urobilinogen - Negative Bedside Urine Nitrite - Negative Bedside Urine Leukocytes - Negative Esterase <Med OsunaDO - Last Filed: 07/29/18 13:02> Lab Data Lab Results 07/29/18 07/29/18 07/29/18 Range/Units 00:20 00:20 00:20 WBC 18.3 H (4.5-11.0) X10^3/uL RBC 5.46 (4.5-5.9) X10^6/uL Hgb 15.9 (13.5-17.5) g/dL Hct 48.6 (41-53) % MCV 89.0 (80-100) fL MCH 29.2 (26-34) PG MCHC 32.8 (30-36) % RDW 14.1 (11.6-14.8) % Plt Count 317 (150-400) X10^3/uL Neut % (Auto) 78.2 H (50-75) % Lymph % (Auto) 16.3 L (25-40) % [place] % (Auto) 4.4 (3-14) % Eos % (Auto) 0.5 L (2-4) % Baso % (Auto) 0.6 (0-2) % Neut # (Auto) 94443 H (2491-2258) /uL Lymph # (Auto) 3000 (3092-5999) /uL [place] # (Auto) 800 (0-900) /uL Eos # (Auto) 100 (0-450) /uL Baso # (Auto) 100 (0-100) /uL Sodium 142 (137-145) mmol/L Potassium 3.9 (3.4-5.1) mmol/L Chloride 104 (98-107) mmol/L Carbon Dioxide 21 L (22-32) mmol/L BUN 17 (9-20) mg/dL Creatinine 0.90 (0.66-1.25) mg/dL Estimated GFR > 60.0 (>60) mL/min BUN/Creatinine Ratio 18.9 (6-22) Glucose 116 H (70-100) mg/dL Calcium 10.3 H (8.4-10.2) mg/dL Total Bilirubin 0.4 (0.2-1.3) mg/dL AST 28 (17-59) IU/L ALT 28 (21-72) IU/L Alkaline Phosphatase 63 (38-126) U/L Total Protein 8.0 (6.3-8.2) g/dL Albumin 5.0 (3.5-5.0) g/dL Globulin 3.0 (1.7-4.1) g/dL Albumin/Globulin Ratio 1.7 (1.0-2.8) TSH 2.88 D (0.47-4.68) uIU/mL Urine RBC (0-5/HPF) Urine WBC (0-5/HPF) Urine Bacteria (None) Ur Culture Indicated? Salicylates < 1.0 (<20) mg/dL Urine Opiates Screen (Negative) Ur Oxycodone Screen (Negative) Urine Methadone Screen (Negative) Acetaminophen < 10 L (10-30) ug/mL Ur Barbiturates Screen (Negative) U Tricyclic Antidepress (Negative) Ur Phencyclidine Scrn (Negative) Ur Amphetamines Screen (Negative) U Methamphetamines Scrn (Negative) Ur MDMA Scrn (Ecstasy) (Negative) U Benzodiazepines Scrn (Negative) Urine Cocaine Screen (Negative) U Marijuana (THC) Screen (Negative) Ethyl Alcohol < 10 mg/dL 07/29/18 07/29/18 07/29/18 Range/Units 02:26 07:45 11:55 WBC 12.7 H (4.5-11.0) X10^3/uL RBC 5.01 (4.5-5.9) X10^6/uL Hgb 14.7 (13.5-17.5) g/dL Hct 45.0 (41-53) % MCV 89.8 (80-100) fL MCH 29.3 (26-34) PG MCHC 32.6 (30-36) % RDW 14.0 (11.6-14.8) % Plt Count 277 (150-400) X10^3/uL Neut % (Auto) 85.0 H (50-75) % Lymph % (Auto) 9.5 L (25-40) % [place] % (Auto) 4.8 (3-14) % Eos % (Auto) 0.0 L (2-4) % Baso % (Auto) 0.7 (0-2) % Neut # (Auto) 16818 H (6417-9717) /uL Lymph # (Auto) 1200 (8456-5177) /uL [place] # (Auto) 600 (0-900) /uL Eos # (Auto) 0 (0-450) /uL Baso # (Auto) 100 (0-100) /uL Sodium (137-145) mmol/L Potassium (3.4-5.1) mmol/L Chloride (98-107) mmol/L Carbon Dioxide (22-32) mmol/L BUN (9-20) mg/dL Creatinine (0.66-1.25) mg/dL Estimated GFR (>60) mL/min BUN/Creatinine Ratio (6-22) Glucose (70-100) mg/dL Calcium (8.4-10.2) mg/dL Total Bilirubin (0.2-1.3) mg/dL AST (17-59) IU/L ALT (21-72) IU/L Alkaline Phosphatase (38-126) U/L Total Protein (6.3-8.2) g/dL Albumin (3.5-5.0) g/dL Globulin (1.7-4.1) g/dL Albumin/Globulin Ratio (1.0-2.8) TSH (0.47-4.68) uIU/mL Urine RBC None seen (0-5/HPF) Urine WBC None seen (0-5/HPF) Urine Bacteria None seen (None) Ur Culture Indicated? Cult not indicated Salicylates (<20) mg/dL Urine Opiates Screen Negative (Negative) Ur Oxycodone Screen Negative (Negative) Urine Methadone Screen Negative (Negative) Acetaminophen (10-30) ug/mL Ur Barbiturates Screen Negative (Negative) U Tricyclic Antidepress Negative (Negative) Ur Phencyclidine Scrn Negative (Negative) Ur Amphetamines Screen Negative (Negative) U Methamphetamines Scrn Negative (Negative) Ur MDMA Scrn (Ecstasy) Negative (Negative) U Benzodiazepines Scrn Positive H (Negative) Urine Cocaine Screen Negative (Negative) U Marijuana (THC) Screen Positive H (Negative) Ethyl Alcohol mg/dL Urine Dip Bedside Urine Glucose Negative Bedside Urine Bilirubin - Negative Bedside Urine Ketone - Negative Urine Specific [place] 1.015 Bedside Urine Occult Blood - Negative Bedside Urine pH 6.0 Bedside Urine Protein - Negative Bedside Urine Urobilinogen - Negative Bedside Urine Nitrite - Negative Bedside Urine Leukocytes - Negative Esterase MDM Narrative Medical decision making narrative: 0900: Received turned over from Night ED provider. Reviewed patient's history and physical exam. Performed my own history. Repeat CBC shows a decrease in his white blood cell count. I feel that this is a stress response due to his current situation. During my evaluation the patient was very anxious. Was running around the room. Vomited 1 time. He states this is his anxiety. He was given 2 mg of Ativan earlier however this did not improve any of his symptoms. Will give him more medication to try to help with the anxiety. Haldol seem to work somewhat last evening. Patient is medically cleared. Will contact [facility] for evaluation. 1300: Patient was evaluated by [facility] and found to have no criteria for involuntary admission. The patient was able to get some sleep here in the ER. I do not feel like this is a benzodiazepine withdrawal because his symptoms did not improve when he was given benzos. And convince that the amount of marijuana he is smoking is adding to his problems. I did talk with his primary mental health provider Yasmin Peñaloza who to has an appointment this afternoon at 0400 hr and states that she would be happy to see him. The patient's mother and sister are here with him. They will make it to this appointment. Discharge Plan Departure Patient Disposition: Home Clinical Impression: Anxiety, Schizoaffective schizophrenia Nausea & vomiting Qualifiers: Vomiting type: unspecified Vomiting Intractability: non-intractable Qualified Code(s): R11.2 - Nausea with vomiting, unspecified Discharge Date/Time: 07/29/18 13:15 Interventions: ED Discharge Assessment Last Done: 07/29/18 13:31 Instructions: DI for Anxiety -- Adult Activity Restrictions/Additional Instructions: *You have been diagnosed with [ acute anxiety, vomiting ] *What to do: *Take medications as directed *Please proceed directly to [facility] for your appointment this morning at 0800. *Return to ER if you should have any new, worsening or concerning symptoms You have an appointment this afternoon 07/29/18 at 1600 hr with Yasmin Peñaloza. If you cannot or unwilling to make this appointment please call them to reschedule. I highly suggest that you make this appointment. You can return to the emergency department at any time for new or worsening symptoms. Prescriptions: No Action prazosin 1 mg capsule 1 mg PO BEDTIME Qty: 30 RF: 0 promethazine [Phenergan] 25 mg suppository 25 mg MO Q4-6H PRN (Reason: nausea and vomiting) Qty: 12 RF: 0 ondansetron 4 mg tablet,disintegrating 4 mg PO TID-QID PRN (Reason: nausea and vomiting) Qty: 10 RF: 0 haloperidol 2 mg tablet 2 mg PO BID Qty: 60 RF: 0 iloperidone 1 mg tablet 1 mg PO BID Qty: 60 RF: 0 metoprolol tartrate 50 mg tablet 50 mg PO BID RF: 0 sertraline 100 mg tablet 100 mg PO DAILY Qty: 30 RF: 5 clonazepam 2 mg tablet 2 mg PO BID RF: 0 Saphris 10 mg tablet, sublingual 10 mg Sublingual BID RF: 0 diphenhydramine HCl [Benadryl Allergy] 25 mg Tablet 50 mg PO BEDTIME RF: 0 alprazolam 1 mg tablet 1 mg PO BID RF: 0 gabapentin 600 mg tablet 600 mg PO BID RF: 0 Referrals: Prasanth Causey MD [Primary Care Provider] -
--- NOTE | 2018-07-29 00:55 | ED_ITS ---
HPI - Anxiety <Chay PerezDO erik - Last Filed: 07/29/18 21:04> General Chief Complaint: Anxiety Stated Complaint: Poss withdrawal md changed rx Time Seen by Provider: 07/28/18 23:48 Source: patient and family Mode of arrival: ambulatory Limitations: no limitations History of Present Illness HPI narrative: 33-year-old male with extensive psychiatric history and recent medication changes presents with his mother of and the chief complaint of ongoing and worsening anxiety. The patient has been going through a rough patch for approximately 1 year which seems to be slowly worsening despite the best efforts of his psychiatric team. They have been attempting to slowly wean his benzodiazepines but he is absolutely not doing well with that approach. 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 He uses upwards of 2 g of marijuana daily and whether this contributes to his frequent episodes of vomiting is unclear. When his vomiting starts it exacerbates his anxiety which is further worsened by his inability to keep his medications down including Ativan and Haldol. He was last seen and evaluated here a few days ago under very similar circumstances and was eventually stabilized before requesting to leave. He has an intake appointment at [facility] tomorrow morning at 8:00 a.m. his mother has been in contact with multiple local psychiatric facilities including [facility] complaint: anxiety and shortness of breath Onset (ago): hour(s) Symptoms: dyspnea and perioral numbness/tingling Severity: moderate Quality: constant Place: home History of similar episodes: Yes Provoking factors: emotional stress and medication change Relieving factors: nothing Exacerbating factors: thinking about event Related Data Home Medications Medication Instructions Recorded Confirmed metoprolol tartrate 50 mg tablet 50 mg PO BID 11/20/17 07/29/18 asenapine [Saphris] 10 mg SUBLINGUAL BID 07/23/18 07/29/18 clonazepam 2 mg PO BID 07/23/18 07/29/18 diphenhydramine HCl [Benadryl 50 mg PO BEDTIME 07/23/18 07/29/18 Allergy] alprazolam 1 mg PO BID 07/29/18 07/29/18 gabapentin 600 mg PO BID 07/29/18 07/29/18 Previous Rx's Medication Instructions Recorded sertraline 100 mg tablet 100 mg PO DAILY #30 tab 06/29/18 prazosin 1 mg capsule 1 mg PO BEDTIME #30 cap 07/17/18 ondansetron 4 mg disintegrating 4 mg PO TID-QID PRN #10 tab 07/27/18 tablet promethazine 25 mg rectal 25 mg W[place] Q4-6H PRN #12 each 07/27/18 suppository haloperidol 2 mg tablet 2 mg PO BID #60 tab 07/29/18 iloperidone 1 mg tablet 1 mg PO BID #60 tab 07/29/18 Allergies Allergy/AdvReac Type Severity Reaction Status Date / Time cephalexin Allergy Mild RASH Verified 07/27/18 15:56 Review of Systems <Chay Grover DO - Last Filed: 07/29/18 21:04> Constitutional Denies chills, Reports difficulty sleeping, Reports excessive sweating, Denies fever(s), Denies lethargy and Denies weakness Eyes Denies change in vision, Denies eye discharge, Denies irritation and Denies loss of vision ENT Ears, Nose, Mouth, and Throat: Denies change in voice, Denies neck pain and Denies sore throat Cardiovascular Denies chest pain, Denies irregular heart rhythm, Denies lightheadedness, Denies palpitations, Denies dyspnea, Denies dyspnea on exertion and Denies orthopnea Respiratory Denies cough, Denies dyspnea, Denies dyspnea on exertion and Denies wheezing Gastrointestinal Gastrointestinal: Denies abdominal pain, Denies change in bowel habits, Denies diarrhea, Reports nausea and Reports vomiting Genitourinary Denies hematuria, Denies flank pain, Denies urinary incontinence and Denies urinary urgency Musculoskeletal Denies neck pain Integumentary/Breasts Denies pruritus, Denies erythema, Denies rash and Denies wounds Neurologic Reports behavioral changes, Denies confusion, Denies loss of vision and Denies weakness Psychiatric Reports anxiety, Reports behavioral changes, Denies confusion, Denies depression, Denies homicidal ideation and Denies suicidal ideation Endocrine Reports excessive sweating and Denies palpitations Hematologic/Lymphatic Denies easy bruising Allergic/Immunologic Denies wheezing PFSH <Chay Grover DO - Last Filed: 07/29/18 21:04> Medical History RLS (restless legs syndrome) (Chronic ~1986) Schizophrenia (Chronic ~1992) Surgical History No history of previous surgery (Resolved 02/14/15) Family History Grandfather Heart disease Social History Smoking Status: Current every day smoker Family History Grandfather Heart disease Social History Smoking Status: Current every day smoker (vapes every 40 minutes.) Exam <Chay Grover DO - Last Filed: 07/29/18 21:04> Narrative Exam Narrative: GENERAL: 33-year-old male is obviously in significant distress, running laps in the emergency department, rapid shallow breathing, active vomiti ng, very restless and pacing, diaphoretic HEAD: Atraumatic. Normocephalic. No temporal or scalp tenderness. EYES: Pupils equal round and reactive. Extraocular motions intact. No scleral icterus. No injection or drainage. ENT: Nose without bleeding, purulent drainage or septal hematoma. Throat without erythema, tonsillar hypertrophy or exudate. Uvula midline. Airway patent. NECK: Trachea midline. No JVD or lymphadenopathy. Supple, nontender, no meningeal signs. CARDIOVASCULAR: Regular rate and rhythm without murmurs, gallops, or rubs. RESPIRATORY: Clear to auscultation. Breath sounds equal bilaterally. No wheezes, rales, or rhonchi. GASTROINTESTINAL: Abdomen soft, non-tender, nondistended. No hepato- splenomegaly, or palpable masses. No guarding. EXTREMITIES: No clubbing, cyanosis, or edema. No joint tenderness, effusion, or edema noted. BACK: Nontender without deformity or crepitance. No flank tenderness. NEURO: AOx3. SKIN: No rash or erythema. Diaphoresis PSYCH: Rapid breathing and pressured speech Initial Vital Signs Initial Vital Signs: Vital Signs Temperature 98.7 F 07/29/18 00:26 Pulse Rate 102 H 07/29/18 00:26 Respiratory Rate 28 H 07/29/18 00:26 Blood Pressure 177/103 H 07/29/18 00:26 Pulse Oximetry 98 07/29/18 00:26 <Med Osuna DO - Last Filed: 07/29/18 13:02> Initial Vital Signs Initial Vital Signs: Vital Signs Temperature 98.7 F 07/29/18 00:26 Pulse Rate 102 H 07/29/18 00:26 Respiratory Rate 28 H 07/29/18 00:26 Blood Pressure 177/103 H 07/29/18 00:26 Pulse Oximetry 98 07/29/18 00:26 Course <Chay Grover DO - Last Filed: 07/29/18 21:04> Orders Ordered: Discontinued Medications Diphenhydramine HCl (Benadryl) 25 mg IV NOW ONE Stop: 07/29/18 00:37 Last Admin: 07/29/18 00:44 Dose: 25 mg Haloperidol (Haldol) 5 mg IV NOW ONE Stop: 07/29/18 00:15 Last Admin: 07/29/18 00:24 Dose: 5 mg Haloperidol (Haldol) 5 mg IV NOW ONE Stop: 07/29/18 09:25 Last Admin: 07/29/18 12:24 Dose: Not Given Sodium Chloride (Normal Saline 0.9%) 1,000 mls @ 1,000 mls/hr IV BOLUS ONE Stop: 07/29/18 01:15 Last Infusion: 07/29/18 05:00 Dose: 1,000 mls/hr Admin: 07/29/18 01:12 Dose: 1,000 mls/hr Lorazepam (Ativan) 1 mg IV NOW ONE Stop: 07/29/18 00:15 Last Admin: 07/29/18 00:24 Dose: 1 mg Lorazepam (Ativan) 1 mg IV NOW ONE Stop: 07/29/18 05:48 Last Admin: 07/29/18 05:30 Dose: 1 mg Lorazepam (Ativan) 2 mg IV NOW ONE Stop: 07/29/18 08:37 Last Admin: 07/29/18 08:39 Dose: 2 mg Lorazepam (Ativan) 2 mg IV NOW ONE Stop: 07/29/18 09:29 Last Admin: 07/29/18 09:33 Dose: 2 mg Nicotine (Nicoderm) 21 mg TOP NOW ONE Stop: 07/29/18 05:04 Last Admin: 07/29/18 05:20 Dose: 21 mg Nicotine (Nicoderm) 21 mg TOP NOW ONE Stop: 07/29/18 08:38 Last Admin: 07/29/18 08:37 Dose: 21 mg Olanzapine (Zyprexa Zydis) 10 mg PO NOW ONE Stop: 07/29/18 05:27 Last Admin: 07/29/18 05:30 Dose: 10 mg Ondansetron HCl (Zofran) 4 mg IV NOW ONE Stop: 07/29/18 00:15 Last Admin: 07/29/18 00:24 Dose: 4 mg Ondansetron HCl (Zofran) 4 mg IV NOW ONE Stop: 07/29/18 09:25 Last Admin: 07/29/18 09:33 Dose: 4 mg Promethazine HCl (Phenadoz) 25 mg WV NOW ONE Stop: 07/29/18 00:15 Last Admin: 07/29/18 00:45 Dose: Not Given Reevaluation(s) Reevaluation #1: large doses of various medications including haldol, ativan, and bendaryl are NOT GIVEN WITH INTENT OF SEDATION of patient, merely to treat his very severe symptoms. He is (becoming) well known to myself and requires large doses of medications to help control his symptoms. I verbalized this to patient, his mother, and nursing staff. We are all on the same page. Reevaluation #2: patient resting comfortably with above stated meds. Reevaluation #3: patient now awake, walking through department, requesting ice chips and nicoderm he very rapidly is ramping up, he has pressured speech and is pacing, running through the department and has actually left the department and ran upstairs. His medications are not working, he is gravely disabled. He is unaware of his condition and does not think he needs help. DCR needs to evaluate patient as it seems clear he has escalated to the point of requiring hospitalization for stabilization Time: 05:05 Vital Signs - 8 hr 07/29/18 13:31 Pulse Rate 107 H Respiratory Rate 20 Blood Pressure 131/98 H Pulse Oximetry 100 <Med Osuna DO - Last Filed: 07/29/18 13:02> Orders Ordered: Discontinued Medications Diphenhydramine HCl (Benadryl) 25 mg IV NOW ONE Stop: 07/29/18 00:37 Last Admin: 07/29/18 00:44 Dose: 25 mg Haloperidol (Haldol) 5 mg IV NOW ONE Stop: 07/29/18 00:15 Last Admin: 07/29/18 00:24 Dose: 5 mg Haloperidol (Haldol) 5 mg IV NOW ONE Stop: 07/29/18 09:25 Last Admin: 07/29/18 12:24 Dose: Not Given Sodium Chloride (Normal Saline 0.9%) 1,000 mls @ 1,000 mls/hr IV BOLUS ONE Stop: 07/29/18 01:15 Last Infusion: 07/29/18 05:00 Dose: 1,000 mls/hr Admin: 07/29/18 01:12 Dose: 1,000 mls/hr Lorazepam (Ativan) 1 mg IV NOW ONE Stop: 07/29/18 00:15 Last Admin: 07/29/18 00:24 Dose: 1 mg Lorazepam (Ativan) 1 mg IV NOW ONE Stop: 07/29/18 05:48 Last Admin: 07/29/18 05:30 Dose: 1 mg Lorazepam (Ativan) 2 mg IV NOW ONE Stop: 07/29/18 08:37 Last Admin: 07/29/18 08:39 Dose: 2 mg Lorazepam (Ativan) 2 mg IV NOW ONE Stop: 07/29/18 09:29 Last Admin: 07/29/18 09:33 Dose: 2 mg Nicotine (Nicoderm) 21 mg TOP NOW ONE Stop: 07/29/18 05:04 Last Admin: 07/29/18 05:20 Dose: 21 mg Nicotine (Nicoderm) 21 mg TOP NOW ONE Stop: 07/29/18 08:38 Last Admin: 07/29/18 08:37 Dose: 21 mg Olanzapine (Zyprexa Zydis) 10 mg PO NOW ONE Stop: 07/29/18 05:27 Last Admin: 07/29/18 05:30 Dose: 10 mg Ondansetron HCl (Zofran) 4 mg IV NOW ONE Stop: 07/29/18 00:15 Last Admin: 07/29/18 00:24 Dose: 4 mg Ondansetron HCl (Zofran) 4 mg IV NOW ONE Stop: 07/29/18 09:25 Last Admin: 07/29/18 09:33 Dose: 4 mg Promethazine HCl (Phenadoz) 25 mg WV NOW ONE Stop: 07/29/18 00:15 Last Admin: 07/29/18 00:45 Dose: Not Given Vital Signs - 8 hr 07/29/18 13:31 Pulse Rate 107 H Respiratory Rate 20 Blood Pressure 131/98 H Pulse Oximetry 100 MDM - Anxiety <Chay Grover DO - Last Filed: 07/29/18 21:04> Lab Data Result diagrams: 07/29/18 07:45 07/29/18 00:20 Lab Results 07/29/18 07/29/18 07/29/18 Range/Units 00:20 00:20 00:20 WBC 18.3 H (4.5-11.0) X10^3/uL RBC 5.46 (4.5-5.9) X10^6/uL Hgb 15.9 (13.5-17.5) g/dL Hct 48.6 (41-53) % MCV 89.0 (80-100) fL MCH 29.2 (26-34) PG MCHC 32.8 (30-36) % RDW 14.1 (11.6-14.8) % Plt Count 317 (150-400) X10^3/uL Neut % (Auto) 78.2 H (50-75) % Lymph % (Auto) 16.3 L (25-40) % [place] % (Auto) 4.4 (3-14) % Eos % (Auto) 0.5 L (2-4) % Baso % (Auto) 0.6 (0-2) % Neut # (Auto) 86221 H (4770-3428) /uL Lymph # (Auto) 3000 (3864-5136) /uL [place] # (Auto) 800 (0-900) /uL Eos # (Auto) 100 (0-450) /uL Baso # (Auto) 100 (0-100) /uL Sodium 142 (137-145) mmol/L Potassium 3.9 (3.4-5.1) mmol/L Chloride 104 (98-107) mmol/L Carbon Dioxide 21 L (22-32) mmol/L BUN 17 (9-20) mg/dL Creatinine 0.90 (0.66-1.25) mg/dL Estimated GFR > 60.0 (>60) mL/min BUN/Creatinine Ratio 18.9 (6-22) Glucose 116 H (70-100) mg/dL Calcium 10.3 H (8.4-10.2) mg/dL Total Bilirubin 0.4 (0.2-1.3) mg/dL AST 28 (17-59) IU/L ALT 28 (21-72) IU/L Alkaline Phosphatase 63 (38-126) U/L Total Protein 8.0 (6.3-8.2) g/dL Albumin 5.0 (3.5-5.0) g/dL Globulin 3.0 (1.7-4.1) g/dL Albumin/Globulin Ratio 1.7 (1.0-2.8) TSH 2.88 D (0.47-4.68) uIU/mL Urine RBC (0-5/HPF) Urine WBC (0-5/HPF) Urine Bacteria (None) Ur Culture Indicated? Salicylates < 1.0 (<20) mg/dL Urine Opiates Screen (Negative) Ur Oxycodone Screen (Negative) Urine Methadone Screen (Negative) Acetaminophen < 10 L (10-30) ug/mL Ur Barbiturates Screen (Negative) U Tricyclic Antidepress (Negative) Ur Phencyclidine Scrn (Negative) Ur Amphetamines Screen (Negative) U Methamphetamines Scrn (Negative) Ur MDMA Scrn (Ecstasy) (Negative) U Benzodiazepines Scrn (Negative) Urine Cocaine Screen (Negative) U Marijuana (THC) Screen (Negative) Ethyl Alcohol < 10 mg/dL 07/29/18 07/29/18 07/29/18 Range/Units 02:26 07:45 11:55 WBC 12.7 H (4.5-11.0) X10^3/uL RBC 5.01 (4.5-5.9) X10^6/uL Hgb 14.7 (13.5-17.5) g/dL Hct 45.0 (41-53) % MCV 89.8 (80-100) fL MCH 29.3 (26-34) PG MCHC 32.6 (30-36) % RDW 14.0 (11.6-14.8) % Plt Count 277 (150-400) X10^3/uL Neut % (Auto) 85.0 H (50-75) % Lymph % (Auto) 9.5 L (25-40) % [place] % (Auto) 4.8 (3-14) % Eos % (Auto) 0.0 L (2-4) % Baso % (Auto) 0.7 (0-2) % Neut # (Auto) 32700 H (8166-2728) /uL Lymph # (Auto) 1200 (5700-5326) /uL [place] # (Auto) 600 (0-900) /uL Eos # (Auto) 0 (0-450) /uL Baso # (Auto) 100 (0-100) /uL Sodium (137-145) mmol/L Potassium (3.4-5.1) mmol/L Chloride (98-107) mmol/L Carbon Dioxide (22-32) mmol/L BUN (9-20) mg/dL Creatinine (0.66-1.25) mg/dL Estimated GFR (>60) mL/min BUN/Creatinine Ratio (6-22) Glucose (70-100) mg/dL Calcium (8.4-10.2) mg/dL Total Bilirubin (0.2-1.3) mg/dL AST (17-59) IU/L ALT (21-72) IU/L Alkaline Phosphatase (38-126) U/L Total Protein (6.3-8.2) g/dL Albumin (3.5-5.0) g/dL Globulin (1.7-4.1) g/dL Albumin/Globulin Ratio (1.0-2.8) TSH (0.47-4.68) uIU/mL Urine RBC None seen (0-5/HPF) Urine WBC None seen (0-5/HPF) Urine Bacteria None seen (None) Ur Culture Indicated? Cult not indicated Salicylates (<20) mg/dL Urine Opiates Screen Negative (Negative) Ur Oxycodone Screen Negative (Negative) Urine Methadone Screen Negative (Negative) Acetaminophen (10-30) ug/mL Ur Barbiturates Screen Negative (Negative) U Tricyclic Antidepress Negative (Negative) Ur Phencyclidine Scrn Negative (Negative) Ur Amphetamines Screen Negative (Negative) U Methamphetamines Scrn Negative (Negative) Ur MDMA Scrn (Ecstasy) Negative (Negative) U Benzodiazepines Scrn Positive H (Negative) Urine Cocaine Screen Negative (Negative) U Marijuana (THC) Screen Positive H (Negative) Ethyl Alcohol mg/dL Urine Dip Bedside Urine Glucose Negative Bedside Urine Bilirubin - Negative Bedside Urine Ketone - Negative Urine Specific [place] 1.015 Bedside Urine Occult Blood - Negative Bedside Urine pH 6.0 Bedside Urine Protein - Negative Bedside Urine Urobilinogen - Negative Bedside Urine Nitrite - Negative Bedside Urine Leukocytes - Negative Esterase <Med Osuna, - Last Filed: 07/29/18 13:02> Lab Data Lab Results 07/29/18 07/29/18 07/29/18 Range/Units 00:20 00:20 00:20 WBC 18.3 H (4.5-11.0) X10^3/uL RBC 5.46 (4.5-5.9) X10^6/uL Hgb 15.9 (13.5-17.5) g/dL Hct 48.6 (41-53) % MCV 89.0 (80-100) fL MCH 29.2 (26-34) PG MCHC 32.8 (30-36) % RDW 14.1 (11.6-14.8) % Plt Count 317 (150-400) X10^3/uL Neut % (Auto) 78.2 H (50-75) % Lymph % (Auto) 16.3 L (25-40) % [place] % (Auto) 4.4 (3-14) % Eos % (Auto) 0.5 L (2-4) % Baso % (Auto) 0.6 (0-2) % Neut # (Auto) 81289 H (5104-0587) /uL Lymph # (Auto) 3000 (3203-1055) /uL [place] # (Auto) 800 (0-900) /uL Eos # (Auto) 100 (0-450) /uL Baso # (Auto) 100 (0-100) /uL Sodium 142 (137-145) mmol/L Potassium 3.9 (3.4-5.1) mmol/L Chloride 104 (98-107) mmol/L Carbon Dioxide 21 L (22-32) mmol/L BUN 17 (9-20) mg/dL Creatinine 0.90 (0.66-1.25) mg/dL Estimated GFR > 60.0 (>60) mL/min BUN/Creatinine Ratio 18.9 (6-22) Glucose 116 H (70-100) mg/dL Calcium 10.3 H (8.4-10.2) mg/dL Total Bilirubin 0.4 (0.2-1.3) mg/dL AST 28 (17-59) IU/L ALT 28 (21-72) IU/L Alkaline Phosphatase 63 (38-126) U/L Total Protein 8.0 (6.3-8.2) g/dL Albumin 5.0 (3.5-5.0) g/dL Globulin 3.0 (1.7-4.1) g/dL Albumin/Globulin Ratio 1.7 (1.0-2.8) TSH 2.88 D (0.47-4.68) uIU/mL Urine RBC (0-5/HPF) Urine WBC (0-5/HPF) Urine Bacteria (None) Ur Culture Indicated? Salicylates < 1.0 (<20) mg/dL Urine Opiates Screen (Negative) Ur Oxycodone Screen (Negative) Urine Methadone Screen (Negative) Acetaminophen < 10 L (10-30) ug/mL Ur Barbiturates Screen (Negative) U Tricyclic Antidepress (Negative) Ur Phencyclidine Scrn (Negative) Ur Amphetamines Screen (Negative) U Methamphetamines Scrn (Negative) Ur MDMA Scrn (Ecstasy) (Negative) U Benzodiazepines Scrn (Negative) Urine Cocaine Screen (Negative) U Marijuana (THC) Screen (Negative) Ethyl Alcohol < 10 mg/dL 07/29/18 07/29/18 07/29/18 Range/Units 02:26 07:45 11:55 WBC 12.7 H (4.5-11.0) X10^3/uL RBC 5.01 (4.5-5.9) X10^6/uL Hgb 14.7 (13.5-17.5) g/dL Hct 45.0 (41-53) % MCV 89.8 (80-100) fL MCH 29.3 (26-34) PG MCHC 32.6 (30-36) % RDW 14.0 (11.6-14.8) % Plt Count 277 (150-400) X10^3/uL Neut % (Auto) 85.0 H (50-75) % Lymph % (Auto) 9.5 L (25-40) % [place] % (Auto) 4.8 (3-14) % Eos % (Auto) 0.0 L (2-4) % Baso % (Auto) 0.7 (0-2) % Neut # (Auto) 62046 H (5675-3788) /uL Lymph # (Auto) 1200 (8775-7322) /uL [place] # (Auto) 600 (0-900) /uL Eos # (Auto) 0 (0-450) /uL Baso # (Auto) 100 (0-100) /uL Sodium (137-145) mmol/L Potassium (3.4-5.1) mmol/L Chloride (98-107) mmol/L Carbon Dioxide (22-32) mmol/L BUN (9-20) mg/dL Creatinine (0.66-1.25) mg/dL Estimated GFR (>60) mL/min BUN/Creatinine Ratio (6-22) Glucose (70-100) mg/dL Calcium (8.4-10.2) mg/dL Total Bilirubin (0.2-1.3) mg/dL AST (17-59) IU/L ALT (21-72) IU/L Alkaline Phosphatase (38-126) U/L Total Protein (6.3-8.2) g/dL Albumin (3.5-5.0) g/dL Globulin (1.7-4.1) g/dL Albumin/Globulin Ratio (1.0-2.8) TSH (0.47-4.68) uIU/mL Urine RBC None seen (0-5/HPF) Urine WBC None seen (0-5/HPF) Urine Bacteria None seen (None) Ur Culture Indicated? Cult not indicated Salicylates (<20) mg/dL Urine Opiates Screen Negative (Negative) Ur Oxycodone Screen Negative (Negative) Urine Methadone Screen Negative (Negative) Acetaminophen (10-30) ug/mL Ur Barbiturates Screen Negative (Negative) U Tricyclic Antidepress Negative (Negative) Ur Phencyclidine Scrn Negative (Negative) Ur Amphetamines Screen Negative (Negative) U Methamphetamines Scrn Negative (Negative) Ur MDMA Scrn (Ecstasy) Negative (Negative) U Benzodiazepines Scrn Positive H (Negative) Urine Cocaine Screen Negative (Negative) U Marijuana (THC) Screen Positive H (Negative) Ethyl Alcohol mg/dL Urine Dip Bedside Urine Glucose Negative Bedside Urine Bilirubin - Negative Bedside Urine Ketone - Negative Urine Specific [place] 1.015 Bedside Urine Occult Blood - Negative Bedside Urine pH 6.0 Bedside Urine Protein - Negative Bedside Urine Urobilinogen - Negative Bedside Urine Nitrite - Negative Bedside Urine Leukocytes - Negative Esterase MDM Narrative Medical decision making narrative: 0900: Received turned over from Night ED provider. Reviewed patient's history and physical exam. Performed my own history. Repeat CBC shows a decrease in his white blood cell count. I feel that this is a stress response due to his current situation. During my evaluation the patient was very anxious. Was running around the room. Vomited 1 time. He states this is his anxiety. He was given 2 mg of Ativan earlier however this did not improve any of his symptoms. Will give him more medication to try to help with the anxiety. Haldol seem to work somewhat last evening. Patient is medically cleared. Will contact DCR for evaluation. 1300: Patient was evaluated by DCR and found to have no criteria for involuntary admission. The patient was able to get some sleep here in the ER. I do not feel like this is a benzodiazepine withdrawal because his symptoms did not improve when he was given benzos. And convince that the amount of marijuana he is smoking is adding to his problems. I did talk with his primary mental health provider Yasmin Peñaloza who to has an appointment this afternoon at 0400 hr and states that she would be happy to see him. The patient's mother and sister are here with him. They will make it to this appointment. Discharge Plan Departure Patient Disposition: Home Clinical Impression: Anxiety, Schizoaffective schizophrenia Nausea & vomiting Qualifiers: Vomiting type: unspecified Vomiting Intractability: non-intractable Qualified Code(s): R11.2 - Nausea with vomiting, unspecified Discharge Date/Time: 07/29/18 13:15 Interventions: ED Discharge Assessment Last Done: 07/29/18 13:31 Instructions: DI for Anxiety -- Adult Activity Restrictions/Additional Instructions: *You have been diagnosed with [ acute anxiety, vomiting ] *What to do: *Take medications as directed *Please proceed directly to [facility] [place] for your appointment this morning at 0800. *Return to ER if you should have any new, worsening or concerning symptoms You have an appointment this afternoon 07/29/18 at 1600 hr with Yasmin Peñaloza. If you cannot or unwilling to make this appointment please call them to reschedule. I highly suggest that you make this appointment. You can return to the emergency department at any time for new or worsening symptoms. Prescriptions: No Action prazosin 1 mg capsule 1 mg PO BEDTIME Qty: 30 RF: 0 promethazine [Phenergan] 25 mg suppository 25 mg [place] Q4-6H PRN (Reason: nausea and vomiting) Qty: 12 RF: 0 ondansetron 4 mg tablet,disintegrating 4 mg PO TID-QID PRN (Reason: nausea and vomiting) Qty: 10 RF: 0 haloperidol 2 mg tablet 2 mg PO BID Qty: 60 RF: 0 iloperidone 1 mg tablet 1 mg PO BID Qty: 60 RF: 0 metoprolol tartrate 50 mg tablet 50 mg PO BID RF: 0 sertraline 100 mg tablet 100 mg PO DAILY Qty: 30 RF: 5 clonazepam 2 mg tablet 2 mg PO BID RF: 0 Saphris 10 mg tablet, sublingual 10 mg Sublingual BID RF: 0 diphenhydramine HCl [Benadryl Allergy] 25 mg Tablet 50 mg PO BEDTIME RF: 0 alprazolam 1 mg tablet 1 mg PO BID RF: 0 gabapentin 600 mg tablet 600 mg PO BID RF: 0 Referrals: Prasanth Causey MD [Primary Care Provider] -
[2018-07-29 01:08] VITALS: PULSE 81; RESP 18; O2SAT 96
--- NOTE | 2018-07-29 01:09 | PC.NURSE ---
medications and dosages confirmed with MD Grover, pt family and MD report history of therapeutic use of same r/t similar episodes, pt placed on utilization management rn with continuous spo2
[2018-07-29] MEDS: SODIUM CHLORIDE 0.9% 1,000 ML 1000 ML IV (01:12)
--- NOTE | 2018-07-29 01:42 | PC.NURSE ---
PT appears anxious and restless with rapid shallow breathing, n/v, pacing, and diaphoretic. Pt attempting to run laps in the emergency department, Dr Grover requested pt stop running and pt complied and returned to pt room. Mom at bedside. PT denies wanting to harm self or others.
[2018-07-29 01:48] LABS: Thyroid Stimulating Hormone 2.88 uIU/mL (0.47-4.68)
[2018-07-29 02:51] LABS: Urine Amphetamines Negative (Negative); Urine Barbiturates Negative (Negative); Urine Benzodiazepines Positive (Negative); Urine Cocaine Negative (Negative); Urine MDMA Negative (Negative); Urine Methadone Negative (Negative); Urine Methamphetamines Negative (Negative); Urine Morphine/Opi cutoff 2000 Negative (Negative); Urine Oxycodone Negative (Negative); Urine Phencyclidine Negative (Negative); Urine Tetrahydrocannabinol Positive (Negative); Urine Tricyclic Antidepressant Negative (Negative)
[2018-07-29 04:53] VITALS: BP 177/103; PULSE 81; RESP 18; TEMP 37.1; O2SAT 96; BMI 27.9
[2018-07-29] MEDS: NICOTINE 21 MG PATCH TOP ×2 (05:20→08:37)
--- NOTE | 2018-07-29 05:20 | PC.NURSE ---
PT stating wants to be discharged, Dr Grover in room to update pt on plan of care to dispatch DCR to eval pt. Dr. Grover, nurse and mom in room verbally asking pt to stay in room voluntarily to receive care. Pt agrees that he will stay to receive care and is offered comfort measures given water and ice chips requested.
[2018-07-29] MEDS: OLANZapine ODT 10 MG TAB PO (05:30)
--- NOTE | 2018-07-29 05:50 | PC.NURSE ---
PT voluntarily in room with mom at bedside, pt chose to leave ER. Dr. Grover aware, [employer] dispatched and notified. Pt left with IV in place.
--- NOTE | 2018-07-29 07:06 | PC.NURSE ---
Pt changed into paper scrubs. Mother in room with him. Pt pacing room.
--- NOTE | 2018-07-29 07:08 | PC.NURSE ---
Pt pacing in room. mother in room with him.
--- NOTE | 2018-07-29 07:16 | PC.NURSE ---
Pt laying on bed. mother in room with pt
--- NOTE | 2018-07-29 07:30 | PC.NURSE ---
pt laying on bed
--- NOTE | 2018-07-29 07:46 | PC.NURSE ---
PT returned to ER at 0625 with [place] [employer] and Mom at side. Pt placed in room 13 (after other pt occupying room 13 was moved to another room). Pt IV site intact and patent. Pt placed in paper scrubs, personal items removed and placed in secure patient location. Seclusion orders in place by Dr. Grover. Sitter in ED assigned to patient for safety monitoring.
--- NOTE | 2018-07-29 07:46 | PC.NURSE ---
RN is in the Pt room with other staff taking the Pt vitals. Mom is also in Pt room.
[2018-07-29 07:58] VITALS: BP 111/73; PULSE 66; RESP 16; O2SAT 96
--- NOTE | 2018-07-29 08:01 | PC.NURSE ---
Pt is sitting on the bed, Pts mom left
[2018-07-29 08:08] LABS: Add Manual Diff / Slide Review NO; Basophils Absolute Auto 100 /uL (0-100); Basophils Percent Auto 0.7 % (0-2); Eosinophils Absolute Auto 0 /uL (0-450); Hemoglobin 14.7 g/dL (13.5-17.5); Lymphocytes Absolute Auto 1200 /uL (1100-4500); Lymphocytes Percent Auto 9.5 % (25-40); Mean Corpuscular HGB Conc 32.6 % (30-36); Mean Corpuscular Hemoglobin 29.3 PG (26-34); Mean Corpuscular Volume 89.8 fL (80-100); Monocytes Absolute Auto 600 /uL (0-900); Monocytes Percent Auto 4.8 % (3-14); Neutrophils Absolute Auto 10800 /uL (1500-7000); Platelet Count 277 X10^3/uL (150-400); Red Blood Cell Count 5.01 X10^6/uL (4.5-5.9); White Blood Cell Count 12.7 X10^3/uL (4.5-11.0)
--- NOTE | 2018-07-29 08:14 | PC.NURSE ---
Pt is pacing in room, called dietary requesting a breakfast tray with safety precautions
--- NOTE | 2018-07-29 08:28 | PC.NURSE ---
Pt is in room pacing
[2018-07-29] MEDS: LORazepam 2 MG/ML SYRINGE IV ×2 (08:39→09:33)
--- NOTE | 2018-07-29 08:43 | PC.NURSE ---
Pt is running in circles in , mom is sitting outside of room per to Pt request of being alone in Room
--- NOTE | 2018-07-29 08:57 | PC.NURSE ---
Patient is laying on the bed. Patient has had 3 cups of water. Patients mom and sister are in the room with him.
--- NOTE | 2018-07-29 09:18 | PC.NURSE ---
Pt is pacing in room. Pt mom and sister are in the room.
--- NOTE | 2018-07-29 09:29 | PC.NURSE ---
Pt is running back and fourth in room, will stop an lay down but gets up after a minuet or two and starts running back and fourth in room. Patient banged on wall in room once or twice. Patients mom and sister are in the room.
--- NOTE | 2018-07-29 09:42 | PC.NURSE ---
Pt is in room laying prone on bed, observed raise of chest of patient.
--- NOTE | 2018-07-29 09:45 | PC.NURSE ---
pt laying on stomach on stretcher, entered room quietly, pt continued to appear to be sleeping. respirations observed. pt appears to be resting comfortably after 2mg ativan.
--- NOTE | 2018-07-29 09:47 | PC.NURSE ---
0845 spoke with pt's family outside of room. mom and sister agreed to sit in waiting room to decrease stimulation of patient in attempt to treat pt's anxiety. family verbalized understanding and are now waiting in waiting room.
--- NOTE | 2018-07-29 09:58 | PC.NURSE ---
Pt is laying prone on bed, quiet and calm
--- NOTE | 2018-07-29 10:28 | PC.NURSE ---
Patient is laying prone in room, sitter is outside room, patient has chest rise and is arousable to touch.
[2018-07-29 10:30] VITALS: PULSE 101; O2SAT 97
--- NOTE | 2018-07-29 10:30 | PC.NURSE ---
pt sleeping on stretcher on the floor. pt arousable to touch. pulse ox used pt oxygen sats 97% on ra, and 101 heart rate. spoke with pt's family mother and sister. updated them on plan and DCR, and on pt's condition. family was relieved pt had calmed some, and was sleeping. they left for some food and i assured them i would call if pt woke. mom expressed concern that pt was scared of restraints and scared of being hospitalized mom tearful.
--- NOTE | 2018-07-29 10:45 | PC.NURSE ---
patient is in room laying on his right side, patient is sleeping . sitter is sitting outside patients room
--- NOTE | 2018-07-29 11:02 | PC.NURSE ---
patient is lying on left side on bed, he is sleeping, pt has chest rise
--- NOTE | 2018-07-29 11:28 | PC.NURSE ---
patient is laying on bed with constant movement of legs. will get up and pace back and forth in room. complaining of nausea nurse is notified.
--- NOTE | 2018-07-29 11:36 | PC.NURSE ---
Gladis ENRIQUEZ at bedside. pt awake alert, began with sitting on bed, then was up pacing around the room, and breathing hard, also having anxious facial expressions, pt's body language is implying anxiety, restlessness, unpredictablity, pt using little eye contact. pt now laying on bed figiting legs, appears to be trying to get a comfortable position.
--- NOTE | 2018-07-29 11:49 | PC.NURSE ---
Patient is lying on his left side sleeping. sitter is sitting outside of his room
[2018-07-29 11:57] LABS: Bacteria Urine None Seen; RBC Urine None Seen (0-5/HPF); WBC Urine None Seen (0-5/HPF)
[2018-07-29 12:06] LABS: Culture Indicated Urine Cult Not Indicated
--- NOTE | 2018-07-29 12:46 | PC.NURSE ---
pt is sleeping on his left side. sitter is sitting outside of room
[2018-07-29 13:31] VITALS: BP 131/98; PULSE 107; RESP 20; O2SAT 100
--- NOTE | 2018-07-29 15:06 | CM.SWNOTE ---
Reviewed chart, discussed w/ Dr Osuna this morning. DCR called this morning per RN Qiana, this 33 yo presents w/ increasing and debilitating anxiety, possible benzo addiction (?). Supportive mom outside of rm awaiting determination and steps forward. Discussed this case w/ MINA Garcia. She explained Ron does not meet criteria to be detained. Ron is well established w/[facility] and an appt has been secured w/ [facility] for this afternoon. Gladis worked on the LRO this afternoon w/Ron and his family. Ron had been cleared for DC by MINA and Dr Osuna. This GASOLINE ENGINE ASSEMBLER then met w/Ron's mom Cori per her request. We discussed the agencies that provide intensive outpt support for dual diagnosis; addiction/MH. [facility], [facility], [facility], [facility], [facility]. Provided the [employer] Resource Guide to include other resource options and Cori very appreciative. Ron has a private insurer through his Dad's private business and Cori is trying to help Ron get Medicaid coverage as well. This GASOLINE ENGINE ASSEMBLER further encouraged Cori to call and ask about assistance in the [employer] application process. Ron may also qualify for Medicare since he has been on disability d/t his Schizophrenia for at least 6 years (?) Ron was seeing a counselor in [place] for the last 5 years until that person retired. Cori attempting to secure a forensic medical examiner that can help navigate the outpt setting for medical/substance disorder/ MH services. Cori understands to bring Ron back to the ED if psychiatric symptoms persist and/or worsen and Ron becomes a threat to himself and others. Luh Ramirez, PAVAN
== END 2018-07-29 13:15 | disposition home or self-care (01) ==
PROVIDERS: Emergency Medicine; Emergency Provider Emergency Medicine; PCP Family Medicine
DX: F25.0 Schizoaffective disorder, bipolar type (principal); F41.9 Anxiety disorder, unspecified
CPT/HCPCS: 36415; 80053; 80305; 80320; 80329; 81003; 81015; 84443; 85025; 96361; 96374; 96375; 96376; 99285; G0480; J1200; J1630; J2060; J2405

== ENCOUNTER → 2018-11-18 17:15 | Outpatient (CLI) | payer OTHER, SELFPAY ==
[2018-11-18 17:30] LABS: Add Manual Diff / Slide Review NO; Basophils Absolute Auto 100 /uL (0-100); Basophils Percent Auto 1.3 % (0-2); Eosinophils Absolute Auto 200 /uL (0-450); Eosinophils Percent Auto 1.7 % (2-4); Hematocrit 45.6 % (41-53); Hemoglobin 15.6 g/dL (13.5-17.5); Lymphocytes Absolute Auto 3700 /uL (1100-4500); Lymphocytes Percent Auto 36.3 % (25-40); Mean Corpuscular HGB Conc 34.2 % (30-36); Mean Corpuscular Hemoglobin 29.7 PG (26-34); Mean Corpuscular Volume 86.9 fL (80-100); Monocytes Absolute Auto 500 /uL (0-900); Monocytes Percent Auto 4.7 % (3-14); Neutrophils Absolute Auto 5600 /uL (1500-7000); Platelet Count 265 X10^3/uL (150-400); Red Blood Cell Count 5.24 X10^6/uL (4.5-5.9); Red Cell Distribution Width 13.8 % (11.6-14.8); White Blood Cell Count 10.1 X10^3/uL (4.5-11.0)
[2018-11-18 18:01] LABS: Alanine Aminotransferase 13 IU/L (21-72); Albumin 4.6 g/dL (3.5-5.0); Albumin Globulin Ratio 1.6 (1.0-2.8); Alkaline Phosphatase 44 U/L (38-126); Aspartate Aminotransferase 21 IU/L (17-59); BUN Creatinine Ratio 12.2 (6-22); Bilirubin Total 0.3 mg/dL (0.2-1.3); Blood Urea Nitrogen 11 mg/dL (9-20); Calcium 10.3 mg/dL (8.4-10.2); Carbon Dioxide 27 mmol/L (22-32); Chloride 104 mmol/L (98-107); Estimated Glomerular Filt Rate > 60.0 mL/min (>60); Globulin 2.9 g/dL (1.7-4.1); Glucose 96 mg/dL (70-100); HEMOLYSIS < 15 (0-50); Sodium 140 mmol/L (137-145); Total Protein 7.5 g/dL (6.3-8.2)
== END ==
PROVIDERS: PCP Family Medicine; Visit Provider Family Medicine
DX: Z00.00 Encounter for general adult medical examination without abnormal findings (principal)
CPT/HCPCS: 36415; 80053; 84443; 85025

== ENCOUNTER 2019-01-18 12:41 | Day surgery (SDC) | payer OTHER, SELFPAY ==
[2019-01-15 09:16] VITALS: BMI 27.7
[2019-01-18] MEDS: LACTATED RINGERS 1,000 ML 42 ML IV (15:10)
[2019-01-18 15:17] VITALS: BP 115/67; PULSE 45; RESP 14; TEMP 36.3; O2SAT 95; BMI 27.7
--- NOTE | 2019-01-18 16:19 | PM.PREOP ---
Pre-operative Note Interval Note History & Physical reviewed/Exam performed by Physician: Yes Changes to H&P: No H&P completed within 30 days and has changed as indicated here:: See recent office visit for H&P
[2019-01-18] MEDS: CLINDAMYCIN 900 MG/50 ML PIGGYBACK 50 MG IV (16:34)
[2019-01-18] MEDS: LACTATED RINGERS 1,000 ML 100 ML IV (17:02)
[2019-01-18] MEDS: BUPIVACAINE 0.5% (PF) VIAL 30 ML INJ (17:05)
[2019-01-18 17:26] VITALS: BP 158/75; PULSE 89; RESP 19; TEMP 36.1; O2SAT 99
[2019-01-18 17:31] VITALS: BP 150/90; PULSE 78; RESP 19; O2SAT 100
[2019-01-18 17:36] VITALS: BP 148/75; PULSE 62; RESP 16; O2SAT 100
[2019-01-18] MEDS: MEPERIDINE 50 MG/ML INJ 25 MG IV (17:37)
--- NOTE | 2019-01-18 17:40 | P.OP_ITS ---
Operative Date/Time/Diagnoses Date of procedure: 01/18/19 Time of procedure: 17:37 Pre-op diagnosis: Umbilical hernia at incarcerated Post-op diagnosis: same Procedure & Clinicians Procedure: Repair of umbilical hernia Same procedure as scheduled: Yes Indications: Symptomatic umbilical hernia Surgeon: Don Reese Click Yes if Unassisted: Yes Anesthesia Type: General Operative Notes Findings: Small defect. Fat incarcerated in the hernia. Closure Type: primary Specimen(s): none sent Prosthetic devices, grafts, tissues, transplants, or devices: None Estimated Blood Loss (mL): 5 Blood products transfused: none Procedure in detail: The patient was placed supine on the operating room table and underwent general LMA anesthesia. He was prepped and draped in the usual fashion. Curvilinear incision was made beneath the umbilicus. Was carried down the level of fascia. Hernia sac was entered and the contents removed it consists small amount of fat. Fascial edge was cleared of tissue and the pre peritoneal fat was dissected off the anterior abdominal wall. A single figure of 8 suture of 1. Ethibond was used to close the defect. The umbilicus was tacked down to the fascia. This was done with a 3 0 Vicryl. The subcu was closed with interrupted 3 0 Vicryl. The skin was closed running 4 0 Vicryl subcuticular stitch and Steri-Strips. Dressing was applied the patient was awakened and taken to recovery room good condition Complications: none Condition: stable Disposition: PACU
[2019-01-18 17:41] VITALS: BP 136/85; PULSE 62; RESP 16; O2SAT 100
[2019-01-18] MEDS: OXYCODONE/ACETAMINOPHEN 5/325 TABLET 1 TAB PO (18:22)
[2019-01-18 18:30] VITALS: BP 174/104; PULSE 57; RESP 20; TEMP 36.3; O2SAT 100
--- NOTE | 2019-01-18 18:44 | SUR.PHASEII ---
Phase 2: VS with elevated BP. Dr. Reese aware. Medicated with oral pain medication prior to discharge to home. Dressing CDI, Discharge instructions reviewed with good understanding by mother and patient. Pain level 2/10 at time of discharge. Matt Weaver RN.
== END 2019-01-18 18:30 | disposition home or self-care (01) ==
LOC: OR 12:43
PROVIDERS: PCP Family Medicine; Visit Provider Specialist
PROC: (CPT 49587; principal; 2019-01-18 14:30)
DX: K42.0 Umbilical hernia with obstruction, without gangrene (principal); F20.9 Schizophrenia, unspecified; F17.200 Nicotine dependence, unspecified, uncomplicated
CPT/HCPCS: 49587; J1100; J2175; J2405; J2704; J3010

== ENCOUNTER 2019-01-19 08:52 | Emergency (ER) | payer OTHER, MEDICAID, SELFPAY ==
[2019-01-19 08:59] VITALS: BP 129/103; PULSE 83; RESP 24; TEMP 36.4; O2SAT 96; BMI 27.1
--- NOTE | 2019-01-19 09:42 | ED.ANXIETY ---
HPI - Anxiety General Chief Complaint: Anxiety Stated Complaint: panic attack,post op Time Seen by Provider: 01/19/19 09:01 Source: patient Mode of arrival: ambulatory Limitations: no limitations History of Present Illness HPI narrative: Patient sent to the emergency department by his psychiatrist for a panic attack. Patient states that this been going on all night, and that he is nauseated from the upset. Patient states there is no specific trigger for his panic attack. He states he has had many panic attacks and anxiety attacks over the years. Patient denies suicidal or homicidal ideation. No hallucinations. Patient had an umbilical hernia repair yesterday, is states that the area has not been terribly painful. No drainage. No redness or fevers. Related Data Home Medications Medication Instructions Recorded Confirmed diphenhydramine HCl [Benadryl 50 mg PO BEDTIME 07/23/18 01/14/19 Allergy] metoprolol tartrate 50 mg PO BID 01/18/19 01/19/19 gabapentin 300 mg PO TID 01/19/19 01/19/19 Previous Rx's Medication Instructions Recorded ondansetron 4 mg disintegrating 4 mg PO TID-QID PRN #10 tab 07/27/18 tablet promethazine 25 mg rectal 25 mg AZ Q4-6H PRN #12 each 08/05/18 suppository asenapine 10 mg sublingual tablet 10 mg SUBLINGUAL BID #180 tab 11/19/18 brexpiprazole 1 mg tablet 1 mg PO BID #180 tab 11/19/18 clonazepam 2 mg tablet 2 mg PO BID #60 tab 11/24/18 alprazolam 1 mg tablet 1 mg PO BID PRN #60 tab 12/31/18 oxycodone-acetaminophen [Percocet] 1 tab PO Q4-6H PRN #14 tab 01/18/19 Allergies Allergy/AdvReac Type Severity Reaction Status Date / Time cephalexin Allergy Mild RASH Verified 01/18/19 15:12 Review of Systems Constitutional Denies chills, Denies fever(s), Denies lethargy and Denies weakness Eyes Denies change in vision, Denies eye discharge, Denies irritation and Denies loss of vision ENT Ears, Nose, Mouth, and Throat: Denies change in voice, Denies neck pain and Denies sore throat Cardiovascular Denies chest pain, Denies irregular heart rhythm, Denies lightheadedness, Denies palpitations, Denies dyspnea, Denies dyspnea on exertion and Denies orthopnea Respiratory Denies cough, Denies dyspnea, Denies dyspnea on exertion and Denies wheezing Gastrointestinal Gastrointestinal: Denies abdominal pain, Denies change in bowel habits, Denies diarrhea, Denies nausea and Denies vomiting Genitourinary Denies hematuria, Denies flank pain, Denies urinary incontinence and Denies urinary urgency Musculoskeletal Denies neck pain Integumentary/Breasts Denies pruritus, Denies erythema, Denies rash and Denies wounds Neurologic Denies confusion, Denies loss of vision and Denies weakness Psychiatric Reports anxiety, Denies confusion, Denies depression, Denies homicidal ideation and Denies suicidal ideation Endocrine Denies palpitations Hematologic/Lymphatic Denies easy bruising Allergic/Immunologic Denies wheezing [facility] Medical History Chest pain (Acute) Former smoker (Acute) Marijuana use (Acute) Shortness of breath (Acute) Urinary frequency (Acute) RLS (restless legs syndrome) (Chronic ~1986) Schizophrenia (Chronic ~1992) Surgical History No history of previous surgery (Resolved 02/14/15) Family History Grandfather Heart disease Social History household members: family Smoking Status: Current every day smoker alcohol intake: never substance use type: marijuana Family History Grandfather Heart disease Social History household members: family Smoking Status: Current every day smoker alcohol intake: never substance use type: marijuana Exam Initial Vital Signs Initial Vital Signs: Vital Signs Temperature 97.6 F 01/19/19 08:59 Pulse Rate 83 01/19/19 08:59 Respiratory Rate 24 01/19/19 08:59 Blood Pressure 129/103 H 01/19/19 08:59 Pulse Oximetry 96 01/19/19 08:59 Const General: cooperative and well developed Nutritional Appearance: well nourished Orientation: alert, awake, oriented x3 and not confused [facility] Head: normocephalic and atraumatic Ears: external ears normal and TM's normal bilaterally Nose: external nose normal and No nasal discharge Face and sinus: sinuses nontender, face symmetric, no sinus tenderness and No dry mucous membranes Mouth: oral mucosae normal and moist mucous membranes Teeth and gingiva: dentition normal Throat: tonsils normal and uvula midline Eyes General: appearance normal, both eyes and all related structures Eyelids: eyelids normal Conjunctivae: conjunctivae normal Sclera: sclerae normal Pupils: PERRL EOM: EOM intact bilaterally Neck Neck: normal visual inspection, trachea midline, No lymphadenopathy, No midline deformity and No JVD Lymphatic: No lymphedema Chest Chest: normal inspection of the chest Resp Effort & Inspection: normal respiratory effort, able to speak in complete sentences, no respiratory distress and no use of accessory muscles Auscultation: clear to auscultation bilaterally, no rales, no rhonchi and no wheezes Cardio Rate: regular rate Rhythm: regular rhythm Heart Sounds: no click, no gallops, no murmurs and no rubs Pulses: normal peripheral pulses GI Inspection: non-distended Palpation: soft, no hepatosplenomegaly, No guarding, No pulsatile mass and No tender Other: Surgical wound umbilicus is clean dry and intact. Back/Spine/Pelvis Back: No CVA tenderness Cervical Spine: cervical ROM normal and No pain with cervical ROM Thoracic/Lumbar Spine: thoracic and lumbar spine normal to inspection Skin General: no rashes or lesions noted, No jaundice and No petechiae Other: Skin is moist; no erythema or induration or fluctuance around the umbilical wound. Neuro General: alert, oriented x3, gait normal and no focal motor deficits Speech: speech normal Extrem General: full ROM, no clubbing, cyanosis or edema, no pedal edema and no calf tenderness Psych Appearance: well kempt Mental Status: mental status grossly normal Speech and Movement: agitated Mood: anxious mood Attitude: cooperative Thought Content: normal and suicidality Judgment: judgment good Course Course Narrative: I did order IM Ativan and Haldol for the patient; however, the patient was noted to elope from the emergency department, prior to receiving medication. Patient's mother stated that she would try to convince him to return, but the patient never did return. Orders Ordered: Discontinued Medications Haloperidol (Haldol) 2.5 mg IM NOW ONE Stop: 01/19/19 09:41 Lorazepam (Ativan) 2 mg IM NOW ONE Stop: 01/19/19 09:41 Vital Signs - 8 hr 01/19/19 08:59 Temperature 97.6 F Pulse Rate 83 Respiratory Rate 24 Blood Pressure 129/103 H Pulse Oximetry 96 MDM - Anxiety Medical Records Attestation: I reviewed the patient's medical records. Discharge Plan Departure Patient Disposition: Released, Other Clinical Impression: Anxiety, Panic disorder Discharge Date/Time: 01/19/19 09:45 Interventions: ED Discharge Assessment Last Done: 01/19/19 09:45 Prescriptions: No Action asenapine 10 mg tablet, sublingual 10 mg Sublingual BID Qty: 180 RF: 1 brexpiprazole 1 mg tablet 1 mg PO BID Qty: 180 RF: 0 ondansetron 4 mg tablet,disintegrating 4 mg PO TID-QID PRN (Reason: nausea and vomiting) Qty: 10 RF: 0 promethazine [Phenergan] 25 mg suppository 25 mg AZ Q4-6H PRN (Reason: nausea and vomiting) Qty: 12 RF: 2 clonazepam 2 mg tablet 2 mg PO BID Qty: 60 RF: 2 alprazolam 1 mg tablet 1 mg PO BID PRN (Reason: anxiety) Qty: 60 RF: 0 diphenhydramine HCl [Benadryl Allergy] 25 mg Tablet 50 mg PO BEDTIME RF: 0 metoprolol tartrate 50 mg tablet 50 mg PO BID RF: 0 oxycodone-acetaminophen [Percocet] 5-325 mg tablet 1 tab PO Q4-6H PRN (Reason: pain incisional) Qty: 14 RF: 0 gabapentin 600 mg tablet 300 mg PO TID RF: 0 Referrals: Prasanth Causey MD [Primary Care Provider] -
--- NOTE | 2019-01-19 09:53 | PC.NURSE ---
Patient bolted out of emergency department with belongings. Attempted to stop patient but patient was out of sight. Patients mother remained in lobby. In speaking to the mother she states he bolted he says he is going home. I don't know what to do. He needs help. He is in a cycle that often takes days to break Encouraged mother to try and get patient to take his normal medications, welcome to bring him back to ER.
== END 2019-01-19 09:45 | disposition home or self-care (01) ==
PROVIDERS: Emergency Provider Emergency Medicine; PCP Family Medicine
DX: F41.9 Anxiety disorder, unspecified (principal); F41.0 Panic disorder [episodic paroxysmal anxiety]
CPT/HCPCS: 99283

== ENCOUNTER 2019-11-17 09:25 | Emergency (ER) | payer OTHER, MEDICAID, SELFPAY ==
[2019-11-17 09:32] VITALS: BP 139/90; PULSE 87; RESP 16; TEMP 36.4; O2SAT 100; BMI 23.7
--- NOTE | 2019-11-17 09:49 | PC.NURSE ---
Patient is in room with a wound where he attempted to scratch off his skin to delete a tattoo. His right deltoid has a partially healed wound approx 1cm by 4cm. He is stating that he wants to scratch it off to a good mosque. Mom is with him at bedside. She in private, informed me that the patient's doctor Orville Segundo in [place] told her to request that he be involuntarily committed. She states that she fears he might harm himself if given a command by God. She reports that he is hyper-cheondoism.
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
[2019-11-17 10:24] LABS: UR Morphine/Opiate cutoff 300 Negative (Negative); Ur Creatinine Normal (Normal); Ur Specific Gravity Normal (Normal); Urine Amphetamines Negative (Negative); Urine Barbiturates Negative (Negative); Urine Benzodiazepines Negative (Negative); Urine Cocaine Negative (Negative); Urine MDMA Negative (Negative); Urine Methadone Negative (Negative); Urine Methamphetamines Negative (Negative); Urine Oxycodone Negative (Negative); Urine Phencyclidine Negative (Negative); Urine Tetrahydrocannabinol Positive (Negative); Urine Tricyclic Antidepressant Negative (Negative); Urine pH Normal (Normal)
--- NOTE | 2019-11-17 10:32 | PC.NURSE ---
Pt.'s mum is sitting outside the door talking with the pt.
[2019-11-17 11:35] LABS: Add Manual Diff / Slide Review NO; Basophils Absolute Auto 100 /uL (0-100); Eosinophils Absolute Auto 0 /uL (0-450); Eosinophils Percent Auto 0.1 % (2-4); Hemoglobin 15.2 g/dL (13.5-17.5); Lymphocytes Absolute Auto 2400 /uL (1100-4500); Mean Corpuscular HGB Conc 33.8 % (30-36); Mean Corpuscular Hemoglobin 29.7 PG (26-34); Mean Corpuscular Volume 88.1 fL (80-100); Monocytes Absolute Auto 500 /uL (0-900); Monocytes Percent Auto 4.9 % (3-14); Neutrophils Absolute Auto 7400 /uL (1500-7000); Platelet Count 276 X10^3/uL (150-400); Red Blood Cell Count 5.11 X10^6/uL (4.5-5.9); Red Cell Distribution Width 13.8 % (11.6-14.8); White Blood Cell Count 10.5 X10^3/uL (4.5-11.0)
[2019-11-17] MEDS: NICOTINE 21 MG PATCH TOP (11:36)
[2019-11-17 11:47] LABS: Acetaminophen < 10 ug/mL (10-30); Alanine Aminotransferase 20 IU/L (<50); Albumin 4.9 g/dL (3.5-5.0); Albumin Globulin Ratio 1.6 (1.0-2.8); Alkaline Phosphatase 61 U/L (38-126); Aspartate Aminotransferase 24 IU/L (17-59); BUN Creatinine Ratio 15.5 (6-22); Bilirubin Total 0.6 mg/dL (0.2-1.3); Blood Urea Nitrogen 11 mg/dL (9-20); Calcium 10.2 mg/dL (8.4-10.2); Carbon Dioxide 23 mmol/L (22-32); Chloride 103 mmol/L (98-107); Estimated Glomerular Filt Rate > 60.0 mL/min (>60); Ethanol (ETOH) < 10 mg/dL; Globulin 3.1 g/dL (1.7-4.1); Glucose 107 mg/dL (70-100); HEMOLYSIS 16 (0-50); Lipase 49 U/L (23-300); Potassium 4.1 mmol/L (3.4-5.1); Salicylate < 1.0 mg/dL (<20); Sodium 138 mmol/L (137-145)
[2019-11-17 12:23] LABS: Thyroid Stimulating Hormone 2.06 uIU/mL (0.47-4.68)
[2019-11-17 13:45] VITALS: BP 139/88; PULSE 58; RESP 15; TEMP 36.7; O2SAT 100
--- NOTE | 2019-11-17 17:21 | PC.NURSE ---
Addendum entered by Ana Patel R.N. 11/17/19 20:18: 1845: Eating dinner. Addendum entered by Ana Patel R.N. 11/17/19 18:34: 1730: Sitting on floor. Requesting more nicotine patches and morphine. Crying. 1745: Crouched on floor, knees and forehead to floor. 1800: Bathroom. RN in room, gave meds. 1815: Jogging/pacing in room, breathing rapidly. Intermittently crouches or lays on floor for a few moments, then persists in pacing. Original Note: 1:1 Observations 1500 - 1615: Sleeping on gurney. 1630: Awake, walking around room, used restroom, ate lunch tray. 1645: Pacing, wants to talk to mom. I spoke on the phone to his mom, who is in the parking lot. She does not want to be seen by him. 1715: DCR in-progress via tablet.
[2019-11-17] MEDS: NICOTINE 14 PATCH 28 MG TOP (17:55)
[2019-11-17] MEDS: ALPRAZolam 0.5 MG TABLET 1 MG PO (18:01)
--- NOTE | 2019-11-17 18:07 | PC.NURSE ---
Patient is in room with sitter near by. He states that he wants the most amount of nicotine that he can survive. He was medicated for nicotine with-drawls. He reports that he never gets high off of alprazolam and usually takes 2mgs. He was given 1mg of alprazolam. He has food in his room and does not have an appetite due to his medications.
[2019-11-17] MEDS: OLANZapine ODT 10 MG TAB 20 MG PO (19:32)
[2019-11-17] MEDS: clonazePAM 0.5 MG TABLET 1 MG PO (19:32)
[2019-11-17] MEDS: BACLOFEN 10 MG TABLET 15 MG PO (19:33)
--- NOTE | 2019-11-17 21:40 | PC.NURSE ---
Pt was in room with sitter at bedside. I exited another patients room and was told that patient left through the ambulance bay doors. Unable to visualize patient at this time. Charge nurse called patients mother to inform her and RACHNA Pisano called 911 to report pt departure.
--- NOTE | 2019-11-17 21:42 | PC.NURSE ---
Addendum entered by Ana Patel R.N. 11/17/19 22:52: 1050: Pt contained in locked room. Addendum entered by Ana Patel R.N. 11/17/19 22:31: Pt returned via ambulance and in police custody at 2229. Original Note: Pt. grew increasingly agitated, demanding to leave. I discussed with him that we are keeping him here for his safety as we wait for an inpatient bed. Karyn, charge nurse, also discussed with pt that he couldn't leave until talking to the doctor again. Pt argued with me for awhile, stating that he wasn't hearing voices anymore (he had told me earlier in the shift that he was actively hearing the calloway talk to him) and that his schizophrenia is well-controlled, practically cured. Patient began to walk out of his room towards exterior ER doors. I followed to the door, calling for help, and then he bolted outside. This occurred at 7. Hospital security and 911 were called immediately. Hospital security was able to follow him for a bit, witnessed him running down [address]. Just prior to the patient's departure, he was yelling I hate my mom and referring to her as a bitch. After law enforcement was called, charge nurse Karyn notified patient's mother of the circumstances.
--- NOTE | 2019-11-17 22:26 | PC.NURSE ---
2225- Pt returns in police custody. Per police pt was not willing to return on his own and had to be physically taken into custody. with police assistance returned pt to room 13 with sitter at bedside
[2019-11-17 22:37] VITALS: BP 141/90; PULSE 91; RESP 12; TEMP 36.6; O2SAT 98
[2019-11-17] MEDS: diphenhydrAMINE 50 MG/ML VIAL IM (22:50)
[2019-11-17] MEDS: LORazepam 2 MG/ML INJ IM (22:51)
[2019-11-17] MEDS: HALOPERIDOL 5 MG/ML VIAL 10 MG IM (22:51)
--- NOTE | 2019-11-17 23:01 | PC.NURSE ---
Patient now medicated, in room 13 with door closed. Provided with blankets and lights dimmed to allow pt to rest. paperwork from police in chart. Pt aware that he is not allowed to leave.
--- NOTE | 2019-11-17 23:08 | PC.NURSE ---
Karolynyles on watch @23:00, introduced to Pt
--- NOTE | 2019-11-18 00:27 | PC.NURSE ---
Warm blanket provided. Pt has used the restroom
--- NOTE | 2019-11-18 01:45 | PC.NURSE ---
Respirations even and unlabored
--- NOTE | 2019-11-18 02:15 | PC.NURSE ---
Pt sleeping, Respirations even and unlabored
--- NOTE | 2019-11-18 02:30 | PC.NURSE ---
Rm door has been opened.
[2019-11-18 06:41] VITALS: BP 129/84; PULSE 56; RESP 18; O2SAT 100
--- NOTE | 2019-11-18 06:48 | PC.NURSE ---
Pt sleeping, Respirations even unlabored, vitals taken. warm blanket provided
--- NOTE | 2019-11-18 07:57 | PC.NURSE ---
Assumed patient care at 0700 patient was asleep and in bed. Patient currently awake and requesting his phone to text his Dad.
--- NOTE | 2019-11-18 08:05 | PC.NURSE ---
Pt pacing and growling becoming agitated. waiting for morning meds.
[2019-11-18] MEDS: clonazePAM 0.5 MG TABLET 1 MG PO ×2 (08:20→09:06)
--- NOTE | 2019-11-18 08:22 | PC.NURSE ---
Breakfast and morning meds provided. Pt is pacing around the room and praying in the corner and in front of the toilet
--- NOTE | 2019-11-18 08:43 | PC.NURSE ---
Seclusion restraint d/c'd @ 0630 per documentation however order was not discontinued. Discontinued orders @ 6104.
[2019-11-18] MEDS: NICOTINE 21 MG PATCH TOP (09:06)
[2019-11-18] MEDS: BACLOFEN 10 MG TABLET 15 MG PO (09:06)
--- NOTE | 2019-11-18 09:11 | PC.NURSE ---
Patient in room quietly speaking with his sitter.
--- NOTE | 2019-11-18 09:15 | PC.NURSE ---
Pt given nicotine patch and meds. Pacing around room. spinning around on floor, wailing out loud in the corner, talking to self.
[2019-11-18] MEDS: ALPRAZolam 0.5 MG TABLET 1 MG PO (09:16)
--- NOTE | 2019-11-18 09:33 | PC.NURSE ---
Pt's mom arrived and brought in Saphris and paliperidone. Pharmacy called for registration of meds. Picked up at 4195.
--- NOTE | 2019-11-18 09:43 | PC.NURSE ---
Michael having conversations with Pt. he is beginning to calm down
--- NOTE | 2019-11-18 09:44 | PC.NURSE ---
Pt lying on floor clasping head talking to self
--- NOTE | 2019-11-18 10:01 | PC.NURSE ---
Pt calling Mother and Father to speak with them
--- NOTE | 2019-11-18 10:06 | PC.NURSE ---
Scott w/ Katherin @ [facility]; [phone]: Updated on care / events. Will fax updated to [phone].
--- NOTE | 2019-11-18 10:16 | PC.NURSE ---
lying on floor talking to self
[2019-11-18] MEDS: haloperidoL 5 MG TABLET PO ×2 (10:31→16:21)
--- NOTE | 2019-11-18 10:45 | PC.NURSE ---
Pt spoke with mother via phone . Pt is back in room
[2019-11-18 10:53] VITALS: BP 134/78; PULSE 68; RESP 18; TEMP 36.7; O2SAT 97
--- NOTE | 2019-11-18 11:09 | PC.NURSE ---
RACHNA Palacio on for sitter, taking over for Oliverio. PT is calm and cooperative at the moment. I went and introduced myself to the pt and he responded appropriately. Pt claims he is doing good right now and doesnt need anything. Door is closed per patients request, but is not locked.
--- NOTE | 2019-11-18 11:16 | PC.NURSE ---
pt sitting calmly on gurney. Lights are on, door is closed per patients request, but is not locked. Pt is under constant supervision by this SURVEY RESEARCHER
--- NOTE | 2019-11-18 11:31 | PC.NURSE ---
pt talking to dad on phone at the nurses station. Pt seems calm while speaking to him.
--- NOTE | 2019-11-18 11:52 | PC.NURSE ---
pt given coffee per his request. pt is now using the phone to call his dad
--- NOTE | 2019-11-18 12:32 | CM.SWNOTE ---
Addendum entered by Oliverio Husain 11/18/19 15:07: SENIOR COLDFUSION DEVELOPER note SENIOR COLDFUSION DEVELOPER exchanged phone calls with MINA Griffith and assembled packet. SENIOR COLDFUSION DEVELOPER gave copy of packet to [facility] to Coordinate transportation and served a copy to patient. SENIOR COLDFUSION DEVELOPER called Gladis from outside of patient room after giving paperwork to patient and patient spoke with Gladis. Patient indicated understanding. SENIOR COLDFUSION DEVELOPER called patient's mother to provide update. Pl: Patient to transfer to [facility] PAVAN Cannon Original Note: SENIOR COLDFUSION DEVELOPER note At start of shift, SENIOR COLDFUSION DEVELOPER is briefed by [facility] regarding patient. Patient is a 34 y/o male who the DCR has met with and determined that patient does meet criteria for [facility]. [facility] informs SENIOR COLDFUSION DEVELOPER that patient has been accepted at [facility] for check in time of approx 1400 today, but DCR has not yet faxed the needed paperwork. SENIOR COLDFUSION DEVELOPER calls MINA Griffith at [phone]. Gladis informs SENIOR COLDFUSION DEVELOPER that, due to time lapse, Gladis has to re-fax some of the paperwork and serve patient again. Gladis informs SENIOR COLDFUSION DEVELOPER that she will contact ED at approx 1330 to start this process. Gladis informs SENIOR COLDFUSION DEVELOPER that Gladis will contact [facility] to inform them of delay. SENIOR COLDFUSION DEVELOPER provides update to [facility] Noel, and Dr. Gambino. SENIOR COLDFUSION DEVELOPER then receives call from patient's mother. Patient's mother informs SENIOR COLDFUSION DEVELOPER that she has not been updated since previous night. SENIOR COLDFUSION DEVELOPER informs mother of acceptance to [facility], and that MINA Griffith will be coordinating with ED throughout afternoon. Patient's mother expresses relief and requests updates as transfer progresses. SENIOR COLDFUSION DEVELOPER agrees to update patient's mother as updates become available. Pl: SENIOR COLDFUSION DEVELOPER to wait for contact from MINA Griffith, and provide mother with updates as they become available. PAVAN Cannon
--- NOTE | 2019-11-18 12:33 | PC.NURSE ---
pt sitting in corner eating lunch. 1234: Pt pacing around the room with hands pressed together in a praying position. Pt shut door stating he wanted privacy.
--- NOTE | 2019-11-18 12:45 | PC.NURSE ---
pt calling mom on phone at the nurses station
--- NOTE | 2019-11-18 12:46 | PC.NURSE ---
MINA Griffith on ipad to talk to and serve patient.
--- NOTE | 2019-11-18 13:01 | PC.NURSE ---
pt pacing around room with arms crossed behind bed. Pt is requesting to use his vape before he transfers over to [facility]. I told pt that he cannot go outside to use the vape due to hospital policy
--- NOTE | 2019-11-18 13:17 | PC.NURSE ---
pt lying on floor with hands over face
--- NOTE | 2019-11-18 13:45 | PC.NURSE ---
pt kneeling on the ground in the corner of the room praying
--- NOTE | 2019-11-18 14:01 | PC.NURSE ---
Pt requesting another nicotine patch. MARY JANE bernal
--- NOTE | 2019-11-18 14:56 | PC.NURSE ---
PAVAN Duron and MINA Griffith on the phone with the pt serving him [facility] paperwork. Pt is calm and cooperative at this time
--- NOTE | 2019-11-18 14:57 | PC.NURSE ---
GRINDING WHEEL OPERATOR and DCR have discussed and filled out paperwork to serve the Patient. Transport is being called for the patient.
--- NOTE | 2019-11-18 15:31 | PC.NURSE ---
pt continues to pace around room. Pt is aware that ambulance will be here to take him to [facility] around [id number]. Pt is calm at this time, and only requests another cup of coffee and more milk. Pt asked if he could get his own coffee because he didn't like constantly asking the staff to do stuff for him. Pt was reassured that staff doesn't mind helping him and to ask for anything else he needs. Door is partially shut per patients request.
[2019-11-18 16:28] VITALS: BP 141/86; PULSE 86; RESP 18; O2SAT 95
--- NOTE | 2019-11-18 16:33 | PC.NURSE ---
Patient is being picked up by [facility] ambulance BLS. He is agreeable and cooperative and in no acute distress at this time. Ron reports that he really likes haldol and would like to be put back on this medication.
== END 2019-11-18 16:30 ==
PROVIDERS: Emergency Medicine; Emergency Provider Emergency Medicine
DX: F20.9 Schizophrenia, unspecified (principal)
CPT/HCPCS: 36415; 80053; 80305; 80320; 80329; 83690; 84443; 85025; 96372; 99285; G0480; J1200; J1630; J2060

== ENCOUNTER 2019-12-06 20:52 | Emergency (ER) | payer BC, OTHER, MEDICAID, SELFPAY ==
[2019-12-06 21:00] VITALS: BP 164/105; BP 176/101; PULSE 107; PULSE 91; RESP 26; TEMP 36.7; O2SAT 98; O2SAT 99
--- NOTE | 2019-12-06 21:01 | ED.OVERDOSE ---
HPI - Overdose <Trell Tatum MD - Last Filed: 12/15/19 18:11> General Chief Complaint: Toxicology Problem Stated Complaint: ingestion of vape fluid Time Seen by Provider: 12/06/19 21:31 Source: patient and EMS Mode of arrival: EMS History of Present Illness HPI Narrative: Patient brought in by EMS from home, patient states he drink liquid nicotine, intended to be used for his vaping device. He states that his device broke and he decided to drink it. It is ordered online so there is no ingredient label. He denies denies denies hearing any voices or seeing anyone that told him to drink it. Denies any SI or HI. He is awake alert oriented himself and event. It is hand written on the bottle that he brought in with EMS, it is a strawberry short cake [place] waffle snickerdoodle flavor. I spoke with poison Control, at this time no charcoal as patient has vomited. Supportive care. Mild cases nausea vomiting sweats anxiety palpitations. Moderate toxicity may have seizures/bradycardia/low blood pressures/low respiratory rate. Advised patient be admitted for observation at least 6 hours Related Data Home Medications Medication Instructions Recorded Confirmed asenapine maleate [Saphris] 10 mg SUBLINGUAL BID 11/17/19 12/07/19 baclofen 10 mg PO TID 11/17/19 12/07/19 paliperidone 3 mg PO DAILY 11/17/19 12/07/19 buspirone 10 mg PO BID 12/07/19 12/07/19 diazepam 10 mg PO BID 12/07/19 12/07/19 fluoxetine 20 mg PO DAILY 12/07/19 12/07/19 trazodone 100 mg PO QPM 12/07/19 12/07/19 Allergies Allergy/AdvReac Type Severity Reaction Status Date / Time cephalexin Allergy Mild RASH Verified 11/18/19 08:28 Review of Systems <Trell Tatum MD - Last Filed: 12/15/19 18:11> Review of Systems Narrative: GENERAL: Denies chills, fatigue, malaise, fever, sweats. HEENT: Denies sinus pain, ear pain, sore throat, difficulty swallowing, dizziness. RESPIRATORY: Denies dyspnea, cough, wheezing, hemoptysis, sputum. CARDIOVASCULAR: Denies chest pain, palpitations, orthopnea, edema, GASTROINTESTINAL: Complains of epigastric discomfort/nausea and vomiting, nonbloody : Denies dysuria, frequency, incontinence, hematuria, urinary retention. MUSCULOSKELETAL: denies weakness, joint pain, or bony pain SKIN: Denies rash, skin lesions, or other NEUROLOGIC: Denies weakness, headache, numbness, change in speech, confusion, seizures, incoordination. PSYCHIATRIC: Anxious ROS Unobtainable: All systems reviewed & are unremarkable except as noted in HPI and below Patient History <Trell Tautm MD - Last Filed: 12/15/19 18:11> Medical History Chest pain (Acute) Former smoker (Acute) Marijuana use (Acute) RLS (restless legs syndrome) (Chronic ~1986) Schizophrenia (Chronic ~1992) Schizophrenia (Acute) Shortness of breath (Acute) Urinary frequency (Acute) Surgical History No history of previous surgery (Resolved 02/14/15) Family History Grandfather Heart disease Social History household members: family Smoking Status: Current every day smoker alcohol intake: never substance use type: marijuana Smoking Status: Current every day smoker tobacco type: vaping alcohol intake frequency: 0-2 drinks per day Substance Use Type: marijuana Exam <Trell Tatum MD - Last Filed: 12/15/19 18:11> Narrative Exam Narrative: GENERAL: patient appears stated age. Well-nourished, well-developed patient, in no distress, not not toxic, however very anxious HEAD: Atraumatic. Normocephalic. EYES: Pupils equal round and reactive. Extraocular motions intact. No scleral icterus. No injection or drainage. ENT: Nose without bleeding, purulent drainage. Throat without erythema, tonsillar hypertrophy or exudate. Airway patent. NECK: Trachea midline. Non tender CARDIOVASCULAR: Regular rate and rhythm without murmurs, gallops, or rubs. RESPIRATORY: Clear to auscultation. Breath sounds equal bilaterally. No wheezes, rales, or rhonchi. GASTROINTESTINAL: Abdomen soft, non-tender, nondistended. EXTREMITIES: No edema or joint tenderness. BACK: Nontender without deformity or crepitance. No flank tenderness. NEURO: AOx3. Patient very anxious. Does follow instructions. SKIN: No rash or erythema of visible areas Initial Vital Signs Initial Vital Signs: Vital Signs Temperature 98.0 F 12/06/19 21:00 Pulse Rate 107 H 12/06/19 21:00 Respiratory Rate 26 H 12/06/19 21:00 Blood Pressure 176/101 H 12/06/19 21:00 Pulse Oximetry 99 12/06/19 21:00 <Vandana Gambino DO - Last Filed: 12/09/19 06:49> Initial Vital Signs Initial Vital Signs: Vital Signs Temperature 98.0 F 12/06/19 21:00 Pulse Rate 107 H 12/06/19 21:00 Respiratory Rate 26 H 12/06/19 21:00 Blood Pressure 176/101 H 12/06/19 21:00 Pulse Oximetry 99 12/06/19 21:00 Course <Trell Tatum MD - Last Filed: 12/15/19 18:11> Course Course Narrative: Patient has been cooperative. Not combative. At times restless but redirectable with giving ice cubes in speaking with patient to go back to his room. Decision to Admit Date: 12/06/19 Decision to Admit time: 22:13 Orders Ordered: Discontinued Medications Baclofen (Lioresal) 10 mg PO NOW ONE Stop: 12/07/19 11:48 Last Admin: 12/07/19 12:44 Dose: 10 mg Documented by: TOMASZ Baclofen (Lioresal) 10 mg PO TID [facility] Last Admin: 12/08/19 15:32 Dose: 10 mg Documented by: Admin: 12/08/19 09:24 Dose: 10 mg Documented by: HILARIO Buspirone HCl (Buspar) 10 mg PO NOW ONE Stop: 12/07/19 11:48 Last Admin: 12/07/19 12:44 Dose: 10 mg Documented by: TOMASZ Buspirone HCl (Buspar) 10 mg PO BID [facility] Last Admin: 12/08/19 09:23 Dose: 10 mg Documented by: HILARIO Diazepam (Valium) 5 mg IV NOW ONE Stop: 12/06/19 22:21 Last Admin: 12/06/19 22:25 Dose: 5 mg Documented by: YESI Diazepam (Valium) 2.5 mg IV NOW ONE Stop: 12/07/19 08:42 Last Admin: 12/07/19 09:13 Dose: 2.5 mg Documented by: SHANTA Diazepam (Valium) 2.5 mg IV NOW ONE Stop: 12/07/19 09:23 Last Admin: 12/07/19 09:52 Dose: Not Given Documented by: SHANTA Diazepam (Valium) 5 mg IV NOW ONE Stop: 12/07/19 09:42 Last Admin: 12/07/19 09:44 Dose: 5 mg Documented by: SHANTA Diazepam (Valium) 5 mg IV NOW ONE Stop: 12/07/19 11:41 Last Admin: 12/07/19 11:44 Dose: 5 mg Documented by: TOMASZ Diazepam (Valium) 5 mg IV NOW ONE Stop: 12/07/19 13:21 Last Admin: 12/07/19 13:41 Dose: Not Given Documented by: TOMASZ Diazepam (Valium) 10 mg PO BID [facility] Last Admin: 12/08/19 09:23 Dose: 10 mg Documented by: HILARIO Diazepam (Valium) 10 mg PO NOW ONE Stop: 12/08/19 16:59 Last Admin: 12/08/19 17:02 Dose: 10 mg Documented by: RNESTER Diazepam (Valium) 10 mg PO NOW ONE Stop: 12/08/19 16:59 Last Admin: 12/08/19 17:20 Dose: Not Given Documented by: RNESTER Diphenhydramine HCl (Benadryl) 50 mg IV NOW ONE Stop: 12/07/19 13:21 Last Admin: 12/07/19 13:24 Dose: 50 mg Documented by: TOMASZ Diphenhydramine HCl (Benadryl) 50 mg IV NOW ONE Stop: 12/07/19 18:33 Last Admin: 12/07/19 18:44 Dose: 50 mg Documented by: BENJAMINFARMarzena Diphenhydramine HCl (Benadryl) 50 mg PO NOW ONE Stop: 12/08/19 00:49 Last Admin: 12/08/19 00:52 Dose: 50 mg Documented by: ANTOINETTEN Fluoxetine HCl (Prozac) 20 mg PO NOW ONE Stop: 12/07/19 11:48 Last Admin: 12/07/19 12:47 Dose: Not Given Documented by: TOMASZ Fluoxetine HCl (Prozac) 20 mg PO DAILY [facility] Last Admin: 12/08/19 09:38 Dose: Not Given Documented by: HILARIO Haloperidol (Haldol) 5 mg IM NOW ONE Stop: 12/06/19 22:34 Last Admin: 12/06/19 22:39 Dose: 5 mg Documented by: YESI Sodium Chloride (Normal Saline 0.9%) 1,000 mls @ 1,000 mls/hr IV BOLUS ONE Stop: 12/06/19 21:55 Last Infusion: 12/07/19 00:01 Dose: 0 mls/hr Documented by: Admin: 12/06/19 21:24 Dose: 1,000 mls/hr Documented by: YESI Lorazepam (Ativan) 1 mg IV NOW ONE Stop: 12/06/19 21:40 Last Admin: 12/06/19 21:55 Dose: 1 mg Documented by: YESI Lorazepam (Ativan) 1 mg IV NOW ONE Stop: 12/06/19 23:20 Last Admin: 12/06/19 23:32 Dose: 1 mg Documented by: YESI Lorazepam (Ativan) 1 mg IV NOW ONE Stop: 12/07/19 02:10 Last Admin: 12/07/19 02:18 Dose: 1 mg Documented by: YESI Lorazepam (Ativan) 1 mg IV NOW ONE Stop: 12/07/19 08:34 Last Admin: 12/07/19 08:40 Dose: 1 mg Documented by: SHANTA Nicotine (Nicoderm) 21 mg TOP NOW ONE Stop: 12/08/19 14:00 Last Admin: 12/08/19 14:20 Dose: 21 mg Documented by: PAULETTE Non-Formulary Medication (Patient's Own Medication) 1 each SL BID [facility] Last Admin: 12/08/19 10:33 Dose: 1 each Documented by: HILARIO Non-Formulary Medication (Patient's Own Medication) 2 each PO DAILY [facility] Last Admin: 12/08/19 10:32 Dose: 2 each Documented by: HILARIO Non-Formulary Medication (Patient's Own Medication) 1 each PO SEEINSTR [facility] Olanzapine (Zyprexa) 5 mg PO NOW ONE Stop: 12/07/19 19:23 Last Admin: 12/07/19 19:50 Dose: 5 mg Documented by: TOMASZ Ondansetron HCl (Zofran) 4 mg IV NOW ONE Stop: 12/06/19 20:57 Last Admin: 12/06/19 21:24 Dose: 4 mg Documented by: YESI Ondansetron HCl (Zofran) 4 mg IV NOW ONE Stop: 12/07/19 11:21 Last Admin: 12/07/19 11:30 Dose: 4 mg Documented by: TOMASZ Pantoprazole Sodium (Protonix) 40 mg IV NOW ONE Stop: 12/06/19 20:57 Last Admin: 12/06/19 21:24 Dose: 40 mg Documented by: YESI Reevaluation(s) Reevaluation #1: Vomiting controlled. Patient less anxious Time: 22:13 Reevaluation #2: No vomiting no retching, less agitated, patient does require continued Ativan, hemodynamically stable. Up and walking without any difficulty Time: 01:00 Reevaluation #3: Patient remains not combative, is redirectable when agitated. Does continue to require Ativan to help him relax. Time: 04:00 Consultations Consultation #1: Spoke with hospitalist nurse-practitioner, tawanna roblero, no admit...needs psych ophthalmic dispenser consult Time: 22:14 Consultation #2: Time December 07 12:01 a.m., spoke with DCR...Gopal.. He has not been able to get any bed in the [facility]. Patient was denied. From other facilities he is trying to get patient into. At this time patient will at be held here, we must call DCR again later this morning at 9:00 a.m. for reassessment, he states patient is not on a hold Vital Signs Vital signs: Vital Signs - 8 hr 12/08/19 12:30 Pulse Rate 66 Respiratory Rate 25 H Blood Pressure 154/89 H Pulse Oximetry 100 <Vandana Gambino DO - Last Filed: 12/09/19 06:49> Orders Ordered: Discontinued Medications Baclofen (Lioresal) 10 mg PO NOW ONE Stop: 12/07/19 11:48 Last Admin: 12/07/19 12:44 Dose: 10 mg Documented by: TOMASZ Baclofen (Lioresal) 10 mg PO TID [facility] Last Admin: 12/08/19 15:32 Dose: 10 mg Documented by: Admin: 12/08/19 09:24 Dose: 10 mg Documented by: HILARIO Buspirone HCl (Buspar) 10 mg PO NOW ONE Stop: 12/07/19 11:48 Last Admin: 12/07/19 12:44 Dose: 10 mg Documented by: TOMASZ Buspirone HCl (Buspar) 10 mg PO BID [facility] Last Admin: 12/08/19 09:23 Dose: 10 mg Documented by: HILARIO Diazepam (Valium) 5 mg IV NOW ONE Stop: 12/06/19 22:21 Last Admin: 12/06/19 22:25 Dose: 5 mg Documented by: YESI Diazepam (Valium) 2.5 mg IV NOW ONE Stop: 12/07/19 08:42 Last Admin: 12/07/19 09:13 Dose: 2.5 mg Documented by: SHANTA Diazepam (Valium) 2.5 mg IV NOW ONE Stop: 12/07/19 09:23 Last Admin: 12/07/19 09:52 Dose: Not Given Documented by: SHANTA Diazepam (Valium) 5 mg IV NOW ONE Stop: 12/07/19 09:42 Last Admin: 12/07/19 09:44 Dose: 5 mg Documented by: SHANTA Diazepam (Valium) 5 mg IV NOW ONE Stop: 12/07/19 11:41 Last Admin: 12/07/19 11:44 Dose: 5 mg Documented by: TOMASZ Diazepam (Valium) 5 mg IV NOW ONE Stop: 12/07/19 13:21 Last Admin: 12/07/19 13:41 Dose: Not Given Documented by: TOMASZ Diazepam (Valium) 10 mg PO BID [facility] Last Admin: 12/08/19 09:23 Dose: 10 mg Documented by: HILARIO Diazepam (Valium) 10 mg PO NOW ONE Stop: 12/08/19 16:59 Last Admin: 12/08/19 17:02 Dose: 10 mg Documented by: HILARIO Diazepam (Valium) 10 mg PO NOW ONE Stop: 12/08/19 16:59 Last Admin: 12/08/19 17:20 Dose: Not Given Documented by: HILARIO Diphenhydramine HCl (Benadryl) 50 mg IV NOW ONE Stop: 12/07/19 13:21 Last Admin: 12/07/19 13:24 Dose: 50 mg Documented by: TOMASZ Diphenhydramine HCl (Benadryl) 50 mg IV NOW ONE Stop: 12/07/19 18:33 Last Admin: 12/07/19 18:44 Dose: 50 mg Documented by: CHEO Diphenhydramine HCl (Benadryl) 50 mg PO NOW ONE Stop: 12/08/19 00:49 Last Admin: 12/08/19 00:52 Dose: 50 mg Documented by: GOSIA Fluoxetine HCl (Prozac) 20 mg PO NOW ONE Stop: 12/07/19 11:48 Last Admin: 12/07/19 12:47 Dose: Not Given Documented by: TOMASZ Fluoxetine HCl (Prozac) 20 mg PO DAILY [facility] Last Admin: 12/08/19 09:38 Dose: Not Given Documented by: HILARIO Haloperidol (Haldol) 5 mg IM NOW ONE Stop: 12/06/19 22:34 Last Admin: 12/06/19 22:39 Dose: 5 mg Documented by: YESI Sodium Chloride (Normal Saline 0.9%) 1,000 mls @ 1,000 mls/hr IV BOLUS ONE Stop: 12/06/19 21:55 Last Infusion: 12/07/19 00:01 Dose: 0 mls/hr Documented by: Admin: 12/06/19 21:24 Dose: 1,000 mls/hr Documented by: YESI Lorazepam (Ativan) 1 mg IV NOW ONE Stop: 12/06/19 21:40 Last Admin: 12/06/19 21:55 Dose: 1 mg Documented by: YESI Lorazepam (Ativan) 1 mg IV NOW ONE Stop: 12/06/19 23:20 Last Admin: 12/06/19 23:32 Dose: 1 mg Documented by: YESI Lorazepam (Ativan) 1 mg IV NOW ONE Stop: 12/07/19 02:10 Last Admin: 12/07/19 02:18 Dose: 1 mg Documented by: YESI Lorazepam (Ativan) 1 mg IV NOW ONE Stop: 12/07/19 08:34 Last Admin: 12/07/19 08:40 Dose: 1 mg Documented by: SHANTA Nicotine (Nicoderm) 21 mg TOP NOW ONE Stop: 12/08/19 14:00 Last Admin: 12/08/19 14:20 Dose: 21 mg Documented by: PAULETTE Non-Formulary Medication (Patient's Own Medication) 1 each SL BID [facility] Last Admin: 12/08/19 10:33 Dose: 1 each Documented by: HILARIO Non-Formulary Medication (Patient's Own Medication) 2 each PO DAILY [facility] Last Admin: 12/08/19 10:32 Dose: 2 each Documented by: HILARIO Non-Formulary Medication (Patient's Own Medication) 1 each PO SEEINSTR [facility] Olanzapine (Zyprexa) 5 mg PO NOW ONE Stop: 12/07/19 19:23 Last Admin: 12/07/19 19:50 Dose: 5 mg Documented by: TOMASZ Ondansetron HCl (Zofran) 4 mg IV NOW ONE Stop: 12/06/19 20:57 Last Admin: 12/06/19 21:24 Dose: 4 mg Documented by: YESI Ondansetron HCl (Zofran) 4 mg IV NOW ONE Stop: 12/07/19 11:21 Last Admin: 12/07/19 11:30 Dose: 4 mg Documented by: TOMASZ Pantoprazole Sodium (Protonix) 40 mg IV NOW ONE Stop: 12/06/19 20:57 Last Admin: 12/06/19 21:24 Dose: 40 mg Documented by: YESI Vital Signs Vital signs: Vital Signs - 8 hr 12/08/19 12:30 Pulse Rate 66 Respiratory Rate 25 H Blood Pressure 154/89 H Pulse Oximetry 100 MDM - Overdose <Trell Tatum MD - Last Filed: 12/15/19 18:11> Lab Data Result diagrams: 12/06/19 21:10 12/06/19 21:10 Labs: Lab Results 12/06/19 12/06/19 12/06/19 Range/Units 21:10 21:10 21:10 WBC 13.0 H (4.5-11.0) X10^3/uL RBC 4.94 (4.5-5.9) X10^6/uL Hgb 14.7 (13.5-17.5) g/dL Hct 43.2 (41-53) % MCV 87.6 (80-100) fL MCH 29.7 (26-34) PG MCHC 33.9 (30-36) % RDW 14.0 (11.6-14.8) % Plt Count 348 (150-400) X10^3/uL Neut % (Auto) 67.5 (50-75) % Lymph % (Auto) 25.2 (25-40) % [place] % (Auto) 5.6 (3-14) % Eos % (Auto) 0.7 L (2-4) % Baso % (Auto) 1.0 (0-2) % Neut # (Auto) 8800 H (9665-3257) /uL Lymph # (Auto) 3300 (1306-5206) /uL [place] # (Auto) 700 (0-900) /uL Eos # (Auto) 100 (0-450) /uL Baso # (Auto) 100 (0-100) /uL Sodium 147 H (137-145) mmol/L Potassium 3.7 (3.4-5.1) mmol/L Chloride 115 H (98-107) mmol/L Carbon Dioxide 17 L (22-32) mmol/L BUN 15 (9-20) mg/dL Creatinine 0.68 (0.66-1.25) mg/dL Estimated GFR > 60.0 (>60) mL/min BUN/Creatinine Ratio 22.1 H (6-22) Glucose 116 H (70-100) mg/dL Calcium 10.4 H (8.4-10.2) mg/dL Total Bilirubin 0.2 (0.2-1.3) mg/dL AST 21 (17-59) IU/L ALT 18 (<50) IU/L Alkaline Phosphatase 71 (38-126) U/L Total Protein 6.9 (6.3-8.2) g/dL Albumin 4.5 (3.5-5.0) g/dL Globulin 2.4 (1.7-4.1) g/dL Albumin/Globulin Ratio 1.9 (1.0-2.8) Salicylates 1.0 (<20) mg/dL U Opiates 300ng/mL cut (Negative) Ur Oxycodone Screen (Negative) Urine Methadone Screen (Negative) Acetaminophen < 10 L (10-30) ug/mL Ur Barbiturates Screen (Negative) U Tricyclic Antidepress (Negative) Ur Phencyclidine Scrn (Negative) Ur Amphetamines Screen (Negative) U Methamphetamines Scrn (Negative) Ur MDMA Scrn (Ecstasy) (Negative) U Benzodiazepines Scrn (Negative) Urine Cocaine Screen (Negative) U Marijuana (THC) Screen (Negative) Ethyl Alcohol < 10 ( - 10) mg/dL 12/06/19 Range/Units 22:59 WBC (4.5-11.0) X10^3/uL RBC (4.5-5.9) X10^6/uL Hgb (13.5-17.5) g/dL Hct (41-53) % MCV (80-100) fL MCH (26-34) PG MCHC (30-36) % RDW (11.6-14.8) % Plt Count (150-400) X10^3/uL Neut % (Auto) (50-75) % Lymph % (Auto) (25-40) % [place] % (Auto) (3-14) % Eos % (Auto) (2-4) % Baso % (Auto) (0-2) % Neut # (Auto) (3784-6469) /uL Lymph # (Auto) (7789-0866) /uL [place] # (Auto) (0-900) /uL Eos # (Auto) (0-450) /uL Baso # (Auto) (0-100) /uL Sodium (137-145) mmol/L Potassium (3.4-5.1) mmol/L Chloride (98-107) mmol/L Carbon Dioxide (22-32) mmol/L BUN (9-20) mg/dL Creatinine (0.66-1.25) mg/dL Estimated GFR (>60) mL/min BUN/Creatinine Ratio (6-22) Glucose (70-100) mg/dL Calcium (8.4-10.2) mg/dL Total Bilirubin (0.2-1.3) mg/dL AST (17-59) IU/L ALT (<50) IU/L Alkaline Phosphatase (38-126) U/L Total Protein (6.3-8.2) g/dL Albumin (3.5-5.0) g/dL Globulin (1.7-4.1) g/dL Albumin/Globulin Ratio (1.0-2.8) Salicylates (<20) mg/dL U Opiates 300ng/mL cut Negative (Negative) Ur Oxycodone Screen Negative (Negative) Urine Methadone Screen Negative (Negative) Acetaminophen (10-30) ug/mL Ur Barbiturates Screen Negative (Negative) U Tricyclic Antidepress Negative (Negative) Ur Phencyclidine Scrn Negative (Negative) Ur Amphetamines Screen Negative (Negative) U Methamphetamines Scrn Negative (Negative) Ur MDMA Scrn (Ecstasy) Negative (Negative) U Benzodiazepines Scrn Positive H (Negative) Urine Cocaine Screen Negative (Negative) U Marijuana (THC) Screen Positive H (Negative) Ethyl Alcohol ( - 10) mg/dL Urine Dip Bedside Urine Glucose Negative Bedside Urine Bilirubin - Negative Bedside Urine Ketone - Negative Urine Specific [place] 1.020 Bedside Urine Occult Blood - Negative Bedside Urine pH 6.0 Bedside Urine Protein - Negative Bedside Urine Urobilinogen - Negative Bedside Urine Nitrite - Negative Bedside Urine Leukocytes - Negative Esterase ECG Data Attestation: I personally reviewed and interpreted this ECG as follows: Interpretation: Normal sinus rhythm, ventricular rate 82, no ST elevation or depression MDM Narrative Medical decision making narrative: Time December 08, 2019 at 12:51 a.m., Gopal , with DCR has completed search for bed placement and unable to find 1 in the [facility]. He has faxed over briefing of intervention investigation request and outcome patient was not detained, we will have to request a new evaluation and bed search tomorrow morning/this morning, patient has not tried leaving the department. He is at times anxious but redirectable. No requirement for IV medications at this time. No complications from ingestion of vapor nicotine last night. Patient is resting comfortably right now I confirmed with Gopal, patient is not on hold, will have to request another DCR assessment at 5:00 a.m. today Time 6:28 a.m., Gladis from the DCR spoke with nursing staff that next step is to escalate to their government program manager for review. Employee Relations Assistant is in the office from 8:00 a.m. until 5:00 p.m. today. Our social Work presents now is to talk to the government program manager directly about this next step. <Vandana Gambino, DO - Last Filed: 12/09/19 06:49> Lab Data Attestation: I reviewed the patient's lab results. Labs: Lab Results 12/06/19 12/06/19 12/06/19 Range/Units 21:10 21:10 21:10 WBC 13.0 H (4.5-11.0) X10^3/uL RBC 4.94 (4.5-5.9) X10^6/uL Hgb 14.7 (13.5-17.5) g/dL Hct 43.2 (41-53) % MCV 87.6 (80-100) fL MCH 29.7 (26-34) PG MCHC 33.9 (30-36) % RDW 14.0 (11.6-14.8) % Plt Count 348 (150-400) X10^3/uL Neut % (Auto) 67.5 (50-75) % Lymph % (Auto) 25.2 (25-40) % [place] % (Auto) 5.6 (3-14) % Eos % (Auto) 0.7 L (2-4) % Baso % (Auto) 1.0 (0-2) % Neut # (Auto) 8800 H (5974-2450) /uL Lymph # (Auto) 3300 (4291-3600) /uL [place] # (Auto) 700 (0-900) /uL Eos # (Auto) 100 (0-450) /uL Baso # (Auto) 100 (0-100) /uL Sodium 147 H (137-145) mmol/L Potassium 3.7 (3.4-5.1) mmol/L Chloride 115 H (98-107) mmol/L Carbon Dioxide 17 L (22-32) mmol/L BUN 15 (9-20) mg/dL Creatinine 0.68 (0.66-1.25) mg/dL Estimated GFR > 60.0 (>60) mL/min BUN/Creatinine Ratio 22.1 H (6-22) Glucose 116 H (70-100) mg/dL Calcium 10.4 H (8.4-10.2) mg/dL Total Bilirubin 0.2 (0.2-1.3) mg/dL AST 21 (17-59) IU/L ALT 18 (<50) IU/L Alkaline Phosphatase 71 (38-126) U/L Total Protein 6.9 (6.3-8.2) g/dL Albumin 4.5 (3.5-5.0) g/dL Globulin 2.4 (1.7-4.1) g/dL Albumin/Globulin Ratio 1.9 (1.0-2.8) Salicylates 1.0 (<20) mg/dL U Opiates 300ng/mL cut (Negative) Ur Oxycodone Screen (Negative) Urine Methadone Screen (Negative) Acetaminophen < 10 L (10-30) ug/mL Ur Barbiturates Screen (Negative) U Tricyclic Antidepress (Negative) Ur Phencyclidine Scrn (Negative) Ur Amphetamines Screen (Negative) U Methamphetamines Scrn (Negative) Ur MDMA Scrn (Ecstasy) (Negative) U Benzodiazepines Scrn (Negative) Urine Cocaine Screen (Negative) U Marijuana (THC) Screen (Negative) Ethyl Alcohol < 10 ( - 10) mg/dL 12/06/19 Range/Units 22:59 WBC (4.5-11.0) X10^3/uL RBC (4.5-5.9) X10^6/uL Hgb (13.5-17.5) g/dL Hct (41-53) % MCV (80-100) fL MCH (26-34) PG MCHC (30-36) % RDW (11.6-14.8) % Plt Count (150-400) X10^3/uL Neut % (Auto) (50-75) % Lymph % (Auto) (25-40) % [place] % (Auto) (3-14) % Eos % (Auto) (2-4) % Baso % (Auto) (0-2) % Neut # (Auto) (9246-2633) /uL Lymph # (Auto) (1019-7723) /uL [place] # (Auto) (0-900) /uL Eos # (Auto) (0-450) /uL Baso # (Auto) (0-100) /uL Sodium (137-145) mmol/L Potassium (3.4-5.1) mmol/L Chloride (98-107) mmol/L Carbon Dioxide (22-32) mmol/L BUN (9-20) mg/dL Creatinine (0.66-1.25) mg/dL Estimated GFR (>60) mL/min BUN/Creatinine Ratio (6-22) Glucose (70-100) mg/dL Calcium (8.4-10.2) mg/dL Total Bilirubin (0.2-1.3) mg/dL AST (17-59) IU/L ALT (<50) IU/L Alkaline Phosphatase (38-126) U/L Total Protein (6.3-8.2) g/dL Albumin (3.5-5.0) g/dL Globulin (1.7-4.1) g/dL Albumin/Globulin Ratio (1.0-2.8) Salicylates (<20) mg/dL U Opiates 300ng/mL cut Negative (Negative) Ur Oxycodone Screen Negative (Negative) Urine Methadone Screen Negative (Negative) Acetaminophen (10-30) ug/mL Ur Barbiturates Screen Negative (Negative) U Tricyclic Antidepress Negative (Negative) Ur Phencyclidine Scrn Negative (Negative) Ur Amphetamines Screen Negative (Negative) U Methamphetamines Scrn Negative (Negative) Ur MDMA Scrn (Ecstasy) Negative (Negative) U Benzodiazepines Scrn Positive H (Negative) Urine Cocaine Screen Negative (Negative) U Marijuana (THC) Screen Positive H (Negative) Ethyl Alcohol ( - 10) mg/dL Urine Dip Bedside Urine Glucose Negative Bedside Urine Bilirubin - Negative Bedside Urine Ketone - Negative Urine Specific [place] 1.020 Bedside Urine Occult Blood - Negative Bedside Urine pH 6.0 Bedside Urine Protein - Negative Bedside Urine Urobilinogen - Negative Bedside Urine Nitrite - Negative Bedside Urine Leukocytes - Negative Esterase MDM Narrative Medical decision making narrative: Patient is signed out to me by shift engineer provider. Patient is awaiting social work evaluation. He again has become very agitated he appears to have been given multiple doses of Ativan. He was given a dose of Ativan and continues to be agitated. He says Valium actually works better for him. He was then given 2.5 mg of Valium and continues to be agitated which point he was given 5 mg of Valium. 10:00 a.m. the patient is finally calm and sleeping. I checked on him he is breathing,vitals are being taken. Patient again becomes agitated breathing quite quickly with teeth clenched he is seen frequently going to the restroom for self-induced vomiting. He seems gravely disabled and unable to function due to his severe anxiety. He is also requiring multiple doses of benzodiazepine. He is given his home dose of medications. 1:15 p.m. patient left his room and started running around the emergency department he did go back to his room willingly. He is given 5 mg of Valium IV and 50 mg of Benadryl. 12/08/2019 I received a sign-out from shift engineer provider awaiting placement still. I seen evaluated the patient he is far less agitated today than he was previously. I have scheduled his daily medications. There was telemedicine interview with a DCR. They found him a place in [facility]. given valium 10mg for transport Discharge Plan Departure Patient Disposition: Xfer Psychiatric Hosp Clinical Impression: Acute psychosis Discharge Date/Time: 12/08/19 05:20 Referrals: Prasanth Causey MD [Primary Care Provider] -
[2019-12-06] MEDS: ONDANSETRON 4 MG/2 ML INJ IV (21:24)
[2019-12-06] MEDS: SODIUM CHLORIDE 0.9% 1,000 ML 1000 ML IV (21:24)
[2019-12-06] MEDS: PANTOPRAZOLE 40 MG VIAL IV (21:24)
[2019-12-06 21:28] LABS: Add Manual Diff / Slide Review NO; Basophils Absolute Auto 100 /uL (0-100); Eosinophils Absolute Auto 100 /uL (0-450); Eosinophils Percent Auto 0.7 % (2-4); Hematocrit 43.2 % (41-53); Hemoglobin 14.7 g/dL (13.5-17.5); Lymphocytes Absolute Auto 3300 /uL (1100-4500); Lymphocytes Percent Auto 25.2 % (25-40); Mean Corpuscular HGB Conc 33.9 % (30-36); Mean Corpuscular Hemoglobin 29.7 PG (26-34); Mean Corpuscular Volume 87.6 fL (80-100); Monocytes Absolute Auto 700 /uL (0-900); Monocytes Percent Auto 5.6 % (3-14); Neutrophils Absolute Auto 8800 /uL (1500-7000); Neutrophils Percent Auto 67.5 % (50-75); Platelet Count 348 X10^3/uL (150-400); Red Blood Cell Count 4.94 X10^6/uL (4.5-5.9)
[2019-12-06 21:30] VITALS: BP 162/102; PULSE 84; RESP 26; O2SAT 97
[2019-12-06 21:34] LABS: Acetaminophen < 10 ug/mL (10-30); Ethanol (ETOH) < 10 mg/dL
[2019-12-06 21:39] LABS: Alanine Aminotransferase 18 IU/L (<50); Albumin 4.5 g/dL (3.5-5.0); Albumin Globulin Ratio 1.9 (1.0-2.8); Alkaline Phosphatase 71 U/L (38-126); Aspartate Aminotransferase 21 IU/L (17-59); BUN Creatinine Ratio 22.1 (6-22); Bilirubin Total 0.2 mg/dL (0.2-1.3); Blood Urea Nitrogen 15 mg/dL (9-20); Calcium 10.4 mg/dL (8.4-10.2); Carbon Dioxide 17 mmol/L (22-32); Chloride 115 mmol/L (98-107); Estimated Glomerular Filt Rate > 60.0 mL/min (>60); Globulin 2.4 g/dL (1.7-4.1); Glucose 116 mg/dL (70-100); HEMOLYSIS < 15 (0-50); Potassium 3.7 mmol/L (3.4-5.1); Sodium 147 mmol/L (137-145); Total Protein 6.9 g/dL (6.3-8.2)
[2019-12-06] MEDS: LORazepam 2 MG/ML INJ 1 MG IV ×2 (21:55→23:32)
--- NOTE | 2019-12-06 22:00 | PC.NURSE ---
Nikhil Feng on 1:1 @ 0790 Pt is on angelrbogdan moaning and groaning. IV in place, on monitor
[2019-12-06 22:01] VITALS: BP 166/102; PULSE 94; RESP 33; O2SAT 99
[2019-12-06] MEDS: diazePAM 10 MG/2 ML SYRINGE 5 MG IV (22:25)
--- NOTE | 2019-12-06 22:25 | PC.NURSE ---
Pt has diarrhea assisted to Restroom. Pull up provided Pt declined.
--- NOTE | 2019-12-06 22:33 | PC.NURSE ---
Pt has required 1:1 care since arrival to ED. Pt is alert, at times moaning/pacing. Initially pt with episodes of violent vomiting, clear emesis noted-- improved after IV zofran and protonix. Pt is redirectable, at time reports visions of God and Vidal, prays sometimes. Pt states he was not trying to harm himself by ingestion of vape liquid. Pt is now moaning loudly and retching after eating a few ice chips. Dr Tatum aware, orders for haldol received. Will continue supportive care.
[2019-12-06] MEDS: HALOPERIDOL 5 MG/ML VIAL IM (22:39)
--- NOTE | 2019-12-06 22:49 | PC.NURSE ---
Pt jogging in place. Mattress has been moved to the floor, the gurney is out of the Rm. Ice chips provided if the Pt will lay on the mattress.
--- NOTE | 2019-12-06 23:05 | PC.NURSE ---
Pt needs restroom for diarrhea. Urine sample collected by RACHNA. Pt now back on mattress on floor moaning and groaning
--- NOTE | 2019-12-06 23:12 | PC.NURSE ---
Pt moaning loudly, on kneeling next to the mattress. Then pt standing and jogging in place, still moaning loudly, asking for ice chips. I just need to burn off some steam.
[2019-12-06 23:18] LABS: UR Morphine/Opiate cutoff 300 Negative (Negative); Ur Creatinine Normal (Normal); Ur Specific Gravity Normal (Normal); Urine Amphetamines Negative (Negative); Urine Barbiturates Negative (Negative); Urine Benzodiazepines Positive (Negative); Urine Cocaine Negative (Negative); Urine MDMA Negative (Negative); Urine Methadone Negative (Negative); Urine Methamphetamines Negative (Negative); Urine Oxycodone Negative (Negative); Urine Phencyclidine Negative (Negative); Urine Tetrahydrocannabinol Positive (Negative); Urine Tricyclic Antidepressant Negative (Negative); Urine pH Normal (Normal)
[2019-12-06 23:30] VITALS: PULSE 64; RESP 14; O2SAT 98
[2019-12-07] VITALS (11 sets, daily range): BP systolic 122–195; BP diastolic 62–115; PULSE 55–104; RESP 17–24; O2SAT 96–100
--- NOTE | 2019-12-07 00:30 | PC.NURSE ---
Pt eyes shut, lying down, Chest rising and falling
--- NOTE | 2019-12-07 00:49 | PC.NURSE ---
Pt up to use restroom. Fluids requested and provided
--- NOTE | 2019-12-07 01:16 | PC.NURSE ---
Eyes closed, lying down, Chest rising and falling
--- NOTE | 2019-12-07 01:35 | PC.NURSE ---
Vitals being taken, ice chips provided
--- NOTE | 2019-12-07 01:55 | PC.NURSE ---
Pt running back and forth in RM
[2019-12-07] MEDS: LORazepam 2 MG/ML INJ 1 MG IV ×2 (02:18→08:40)
--- NOTE | 2019-12-07 02:32 | PC.NURSE ---
Eyes closed, chest rising and falling
--- NOTE | 2019-12-07 03:00 | PC.NURSE ---
eyes closed, chest rising and falling
--- NOTE | 2019-12-07 03:22 | PC.NURSE ---
Pt awake, asking for ice water. Wants to know when he can go-- agreeable to staying for continued nicotine-ingestion monitoring. Pt used bathroom and is now pacing in room.
--- NOTE | 2019-12-07 06:15 | PC.NURSE ---
Pt running back and forth touching each wall and grunting repetitively
--- NOTE | 2019-12-07 06:35 | PC.NURSE ---
Pt lying on the Rm floor after doing laps in Rm
--- NOTE | 2019-12-07 07:35 | PC.NURSE ---
This CLINICAL PHYSICIAN ASSISTANT taking over as sitter for this pt. Pt currently laying on mattress on ground. Lights are on in room and the door is open. Mattress on ground is surrounded by paper cups.
--- NOTE | 2019-12-07 08:00 | PC.NURSE ---
pt went into bathroom and started dry heaving. When asked if he vomited he responded no, not really. Pt then layed down on gurney before going back into room.
--- NOTE | 2019-12-07 08:03 | PC.NURSE ---
Patient up to restroom wrenching. Patient states he needs to puke, declined any anti nausea medications.
--- NOTE | 2019-12-07 08:07 | PC.NURSE ---
pt sitting on mattress eating breakfast
--- NOTE | 2019-12-07 08:10 | PC.NURSE ---
pt pacing around room moaning. Pt then walked into bathroom and started coughing, trying to vomit
--- NOTE | 2019-12-07 08:29 | PC.NURSE ---
pt continually asking to leave. I told pt that he needed to stay a few more hours for observation and to speak with our social work manager and he responded saying a few more hours, its always a few more hours. Pt is now moaning while pacing around room. When asked if he wanted any nausea medication he responded that he was just too full and needed to throw up. I asked the pt if he would like the lights dimmed so he could get some rest and he responded I'm not going to sleep here. I'll break out before I sleep here. I'm going to break out.
--- NOTE | 2019-12-07 08:34 | PC.NURSE ---
pt getting increasingly agitated. RN Aida getting medication for pt
--- NOTE | 2019-12-07 08:40 | PC.NURSE ---
pt pacing around room and is requesting valium instead of ativan. DR moses is aware.
--- NOTE | 2019-12-07 08:41 | PC.NURSE ---
mildred pacing around room, clenching jaw and moaning I just want to go home I am freaking out I have been held hostage too long patient medicated with 1mg IV ativan after medication mildred states ativan is the wrong benzo for me Valium is the right one
--- NOTE | 2019-12-07 08:42 | PC.NURSE ---
provider aware of patients request for valium.
--- NOTE | 2019-12-07 08:47 | PC.NURSE ---
pt laying on mattress with arms crossed over chest. Pt is quiet at the moment. Chest is rising and falling at normal pace
[2019-12-07] MEDS: diazePAM 10 MG/2 ML SYRINGE 2.5 MG IV (09:13)
--- NOTE | 2019-12-07 09:18 | PC.NURSE ---
MARY JANE Parra gave pt IV medication. Pt is now rolling around mattress groaning loudly
--- NOTE | 2019-12-07 09:19 | PC.NURSE ---
pt putting head in pillow and yelling loudly
--- NOTE | 2019-12-07 09:26 | PC.NURSE ---
pt given ice water. pt stated to this LABOR CONCILIATOR that anything but valium(like ativan) is counteractive and makes him even more stressed out. Pt then proceeded to get up and pace around the room frantically
--- NOTE | 2019-12-07 09:35 | PC.NURSE ---
MARY JANE Parra and DR Gambino at bedside discussing medication with pt. Pt is attempting to self soothe by putting his face in the mattress and yelling
--- NOTE | 2019-12-07 09:37 | PC.NURSE ---
pt in bathroom vomitting
[2019-12-07] MEDS: diazePAM 10 MG/2 ML SYRINGE 5 MG IV ×3 (09:44→13:24)
--- NOTE | 2019-12-07 09:45 | PC.NURSE ---
Patient pacing, moaning and burying head into blanket. Up to restroom self inducing vomiting. Patient states it is all worse my anxiety everything! Additional dose of Valium ordered. Patient mother had called while in room with patient. Patient is ok with information being disclosed to mother and ok with her visiting. of course it is my mother. Tell her to come take me home
--- NOTE | 2019-12-07 09:51 | PC.NURSE ---
Updated Sanaz (patient's mother) awaiting social work evaluation.
--- NOTE | 2019-12-07 09:55 | PC.NURSE ---
Pt is laying on stomach on mattress. Respirations are steady
--- NOTE | 2019-12-07 10:02 | PC.NURSE ---
pts chest is rising and falling at normal rate
--- NOTE | 2019-12-07 10:07 | PC.NURSE ---
full set of vital signs obtained from pt. Patient was sleeping and took a few attempts to awaken in order to get vitals. Pt was calm and compliant while getting vital signs. All signs in normal range
--- NOTE | 2019-12-07 10:17 | PC.NURSE ---
patient has calmed down, laying on bed. Respiration even and unlabored.
--- NOTE | 2019-12-07 10:22 | PC.NURSE ---
Patient has been on knees praying multiple times. the lord will protect my soul
--- NOTE | 2019-12-07 10:30 | PC.NURSE ---
pt laying on stomach on mattress. Respirations 20.
--- NOTE | 2019-12-07 11:06 | PC.NURSE ---
This TANK WELDER is being relieved as sitter by Ana BRISCOE. Report has been given. Pt is still laying on mattress on stomach. Respirations are steady and within normal range
[2019-12-07] MEDS: ONDANSETRON 4 MG/2 ML INJ IV (11:30)
--- NOTE | 2019-12-07 11:31 | PC.NURSE ---
PESTICIDE APPLICATOR: pt pacing around the room and self inducing vomiting in the bathroom. Respirations are steady and within normal range.
--- NOTE | 2019-12-07 11:45 | PC.NURSE ---
REVERBERATORY SKIMMER: pt laying down. Respirations steady and within normal limits.
--- NOTE | 2019-12-07 12:01 | PC.NURSE ---
AUTO PARTS MANAGER: pt is laying in bed sleeping. RR is 20 and regular.
--- NOTE | 2019-12-07 12:20 | CM.SWNOTE ---
CARETAKER GROUNDS note CARETAKER GROUNDS attempted to meet with patient and was informed by MARY JANE Ivy that patient had recently been given medication and had been asleep for roughly 20 min. CARETAKER GROUNDS knocked on door loudly and stated patient's name loudly in attempt to rouse patient. Patient remained asleep. CARETAKER GROUNDS was informed by MARY JANE Ivy that patient's mother was on the way. CARETAKER GROUNDS requested to be notified when patient's mother arrives. CARETAKER GROUNDS will attempt to meet with patient later in day. PAVAN Cannon
--- NOTE | 2019-12-07 12:24 | PC.NURSE ---
JUMPBASTING MACHINE OPERATOR: pt is sleeping in room. RR is 16 and regular.
--- NOTE | 2019-12-07 12:34 | PC.NURSE ---
RACK PUNCHER: pt laying in bed sleeping. RR: 20 and regular.
[2019-12-07] MEDS: FLUoxetine 20 MG CAPSULE PO (12:44)
[2019-12-07] MEDS: BACLOFEN 10 MG TABLET PO (12:44)
[2019-12-07] MEDS: BUSPIRONE 5 MG TABLET 10 MG PO (12:44)
--- NOTE | 2019-12-07 12:54 | PC.NURSE ---
CAP INSPECTOR: pt is packing back and forth in his room and self purging in the bathroom.
--- NOTE | 2019-12-07 13:01 | PC.NURSE ---
Saphris 10mg SL brought in by mom. Given to patient per Dr Gambino.
--- NOTE | 2019-12-07 13:02 | PC.NURSE ---
Mom Sanaz at bedside, Pt is crying into a pillow. Pt took Saphris but did not want paliperidone 3mg at this time.
--- NOTE | 2019-12-07 13:07 | PC.NURSE ---
TANK BUILDER SUPERVISOR: pt running from one end of the room to the other.
--- NOTE | 2019-12-07 13:09 | CM.SWNOTE ---
Addendum entered by Oliverio Husain 12/07/19 13:54: LASTING ROOM MACHINE OPERATOR Note UPDATE LASTING ROOM MACHINE OPERATOR faxed attestation form to MARY, called MARY, and spoke to Bobbi. Bobbi informed LASTING ROOM MACHINE OPERATOR that DCR would be calling to speak with LASTING ROOM MACHINE OPERATOR shortly. MARY informs LASTING ROOM MACHINE OPERATOR that Gladis is currently DCR on duty. Oliverio Husain, LASTING ROOM MACHINE OPERATOR Original Note: LASTING ROOM MACHINE OPERATOR note Patient is a 34 y/o male who presents to ED after ingesting fluid for a nicotine vape previous evening. Patient has documented hx of schizophrenia and was sent via DCR/[facility]APITO to [facility] following a visit to this ED on 11/17. Patient's mother comes to ED and speaks with LASTING ROOM MACHINE OPERATOR. Patient has provided consent for ED staff to speak with patient's mother. LASTING ROOM MACHINE OPERATOR meets with Patient's mother Sanaz in ED 3 while patient is asleep in room 13. Sanaz reports that patient had spent 8 days at [facility] after he was sent to hospital via DCR during previous visit to ED. Sanaz reports that they made some changes to his medication while at [facility], but states that not much has changed with regards to his behavior. Sanaz reports that patient has been reporting fewer auditory hallucinations than he did prior to stay at [facility], stating he says he's not hearing voices. Sanaz reports that patient continues to experience subtle delusions. LASTING ROOM MACHINE OPERATOR asks for clarification and Sanaz explains that patient has experiences obsessions and delusions relating to religious, and reports an onset of this as roughly September of 2019. Sanaz reports patient has a fixed delusion that his is in the night and he is afraid of sleeping. Sanaz reports that Ron had kept himself awake with coffee during night of 12/04 due to his fear of dying. Sanaz reports patient's long-time psychiatrist- Dr. Segundo- had discharged patient from his practice following stay at [facility], and explains that this decision was made in order to allow patient to access more intensive wrap-around services. Patient has enrolled with care through [facility] in [facility], and has a meeting with an outpatient counselor 12/08, and has had a tele-medicine visit with a psych prescriber during previous week. Sanaz informs LASTING ROOM MACHINE OPERATOR that patient's next appt. with psych prescriber is for 12/29, and that she was unable to get an appt. any sooner for patient. Sanaz reports that patient has been compliant with medication, but reports that he has been forgetting to take his medication on time. Sanaz reports that patient is on LRO and provides LASTING ROOM MACHINE OPERATOR discusses next steps with Sanaz, and asks what she would would like to see stabilization of patient's medications, and that she currently does not feel she is able to keep him safe at home. LASTING ROOM MACHINE OPERATOR discusses potential hospitalization and discusses voluntary and AGAPITO processes. LASTING ROOM MACHINE OPERATOR informs Sanaz that he is going to try to complete assessment with patient prior to making any recommendation, and Sanaz indicated understanding. Sanaz states she is willing to speak to DCR and write affidavit if needed. Sanaz reports that previous day, she had left home for 4 hours to run errands, and when she returned, patient had consumed the vape fluid and left little notes to friends and family because he was afraid he was going to . Sanaz clarifies that patient expresses fear of impending by god, but that patient does not express suicidality. LASTING ROOM MACHINE OPERATOR attempts to meet with patient. Patient is on laying perpendicular on bed on stomach, is clenching his teeth/bearing down, rolling, and making loud groaning noises. Mother is outside of room as LASTING ROOM MACHINE OPERATOR introduces self to patient and informs LASTING ROOM MACHINE OPERATOR that this is how patient often shows symptoms of anxiety. LASTING ROOM MACHINE OPERATOR asks patient if he can speak with patient or if LASTING ROOM MACHINE OPERATOR should return later. Patient states he would like to talk now, and states the lorazepam was a bad idea, I should have just taken the Valium and returns to groaning in pain. Patient then stands and begins pacing room. LASTING ROOM MACHINE OPERATOR informs patient he will return later. LASTING ROOM MACHINE OPERATOR informs Sanaz that LASTING ROOM MACHINE OPERATOR will be requesting DCR consult, and speaks with Dr. Gambino, who indicates agreement that patient meets criteria for hospitalization due to grave disability. Dr. Gambino signs attestation form. LASTING ROOM MACHINE OPERATOR will fax attestation form to [facility] and attempt to meet again with patient to discuss patient's current experience. LASTING ROOM MACHINE OPERATOR will keep Sanaz updated throughout process. PAVAN Cannon
--- NOTE | 2019-12-07 13:10 | PC.NURSE ---
Paliperidone 3mg PO given to patient from home medication per Dr Gambino.
--- NOTE | 2019-12-07 13:20 | PC.NURSE ---
QUOTER: pt is pacing around the room.
[2019-12-07] MEDS: diphenhydrAMINE 50 MG/ML VIAL IV ×2 (13:24→18:44)
--- NOTE | 2019-12-07 13:32 | PC.NURSE ---
Pt is laying down resting in bed. RR: 20 and regular.
--- NOTE | 2019-12-07 13:49 | PC.NURSE ---
WASH AND GREASER: pt sleeping in bed. RR: 16 and regular.
--- NOTE | 2019-12-07 14:15 | PC.NURSE ---
pt laying on mattress with hands behind his neck. Pulse ox is hooked up and pt is at 99 on RA. Pts respiratory rate is steady
--- NOTE | 2019-12-07 14:34 | PC.NURSE ---
PULMONARY NURSE PRACTITIONER: pt is sleeping in bed. RR at 20 and regular.
--- NOTE | 2019-12-07 14:45 | PC.NURSE ---
TUGBOAT DISPATCHER: pt is sleeping in bed. RR: 16 and regular.
--- NOTE | 2019-12-07 15:02 | PC.NURSE ---
Pt. is still sleeping in bed. His RR are 16/minute and regular.
--- NOTE | 2019-12-07 15:15 | PC.NURSE ---
SOLAR APPLICATIONS DEVELOPMENT ENGINEER: Pt is laying down on mattress sleeping. Pulse ox is attached. O2 sat is 99.
--- NOTE | 2019-12-07 15:23 | CM.SWNOTE ---
Addendum entered by Oliverio Husain 12/07/19 16:16: OPTICAL LABORATORY TECHNICIAN calls DCR Gladis at 1610. Gladis informs OPTICAL LABORATORY TECHNICIAN that there are multiple referrals before the one OPTICAL LABORATORY TECHNICIAN sent, and that a DCR will likely not be able to respond for several hours. OPTICAL LABORATORY TECHNICIAN updates Dr. Gambino. PAVAN Cannon Original Note: OPTICAL LABORATORY TECHNICIAN note OPTICAL LABORATORY TECHNICIAN received call from Bobbi at [facility]. Bobbi informs OPTICAL LABORATORY TECHNICIAN that there are 2 referrals that DCR is responding to prior to reviewing referral from OPTICAL LABORATORY TECHNICIAN, and that DCR will call OPTICAL LABORATORY TECHNICIAN to discuss time when she is able. OPTICAL LABORATORY TECHNICIAN leaves for DCR Gladis and informs Gladis that OPTICAL LABORATORY TECHNICIAN will fax clinical paperwork to DCR and asks Gladis to follow up with OPTICAL LABORATORY TECHNICIAN when able. OPTICAL LABORATORY TECHNICIAN faxed clinicals for patient to DCR. Pl: OPTICAL LABORATORY TECHNICIAN will wait for call back from DCR. PAVAN Cannon
--- NOTE | 2019-12-07 15:30 | PC.NURSE ---
HEAD OF MATHEMATICS: pt is laying on mattress asleep with pulse ox attached. RR is 20 and steady. O2 sat is 96%.
--- NOTE | 2019-12-07 15:53 | PC.NURSE ---
CHILD DAY CARE TEACHER: pt is laying down sleeping on the mattress with a blanket. A pulse ox is attached and o2 saturation is 95. RR: 20 steady.
--- NOTE | 2019-12-07 16:03 | PC.NURSE ---
LANDCARE FACILITATOR: pt is laying on his back on the mattress with a pulse ox attached. O2 is 97. HR is 67. RR: 20.
--- NOTE | 2019-12-07 16:15 | PC.NURSE ---
POCKET FLAP CREASING MACHINE OPERATOR: pt offered meal and is sitting on his mattress eating.
--- NOTE | 2019-12-07 16:31 | PC.NURSE ---
ANALYSIS LEAD: pt is laying on his mattress resting. RR: 20
--- NOTE | 2019-12-07 16:48 | PC.NURSE ---
APPAREL TRIMMINGS SALES REPRESENTATIVE: Pt sleeping on mattress with blanket. RR 16 and steady.
--- NOTE | 2019-12-07 16:55 | CM.SWNOTE ---
POST TRONIC MACHINE OPERATOR note POST TRONIC MACHINE OPERATOR spoke with MINA Herron. Gopal requested statement from patient's mother. POST TRONIC MACHINE OPERATOR called patient's mother, who will write statement and bring to once complete. PAVAN Cannon
--- NOTE | 2019-12-07 17:00 | PC.NURSE ---
HORSER UP: Pt is sleeping on mattress. RR: 16
--- NOTE | 2019-12-07 17:16 | PC.NURSE ---
MOUNTING INSPECTOR: pt is laying on mattress sleeping. Pt has blanket. RR: 20.
--- NOTE | 2019-12-07 17:36 | PC.NURSE ---
Addendum entered by Biju Samayoa R.N. 12/07/19 17:46: this is a late entry note for 1200 Original Note: Patient intermittently in bathroom with finger down throat, vomiting or attempting to vomit.
--- NOTE | 2019-12-07 17:48 | PC.NURSE ---
DCR to interview patient via skype with Oliverio BROWNE
--- NOTE | 2019-12-07 17:49 | PC.NURSE ---
pt woken up by PAVAN Duron to talk to Gopal with DCR. Pt is calm while sitting on the mattress and states I feel brain
--- NOTE | 2019-12-07 17:55 | PC.NURSE ---
pt given coffee and his dinner tray.
--- NOTE | 2019-12-07 18:13 | CM.SWNOTE ---
FISCAL TECHNICIAN note MINA Herron calls FISCAL TECHNICIAN and informs FISCAL TECHNICIAN that he is ready for an interview with patient. FISCAL TECHNICIAN brings DCR Ipad into patient room. Patient has just woken up when FISCAL TECHNICIAN and DCR (via Ipad) enter room. DCR does brief assessment on patient, and patient began pacing during assessment. Patient requested that interview be completed another time. DCR asked to continue to speak to FISCAL TECHNICIAN and FISCAL TECHNICIAN brought Ipad back to office. On the way to the office, MARY JANE Ivy informed FISCAL TECHNICIAN that patient's mother had written a statement and gave FISCAL TECHNICIAN a copy. Once back in office, MINA Herorn asked questions about HPI and questioned whether patient's symptoms were a presentation of the side effects from the vape fluid. DCR requested that FISCAL TECHNICIAN read mother's statement to DCR [id number]. FISCAL TECHNICIAN read statement, and DCR states that this is what he needs to make a case for another hospitalization. FISCAL TECHNICIAN informed DCR that patient's mother would like a call back, and DCR said that he would. After termination of call, FISCAL TECHNICIAN meets with patient's mother in waiting room and provides update. Mother expresses gratitude for communication, and states she will return to her home and wait for DCR call. FISCAL TECHNICIAN will provide mother with update at end of shift. Pl: DCR to look for open bed. FISCAL TECHNICIAN will wait for follow up from DCR. PAVAN Cannon
--- NOTE | 2019-12-07 18:20 | PC.NURSE ---
BLOCK CABLEMAN: pt is siting on his mattress eating a cookie. Pt gave urine sample.
--- NOTE | 2019-12-07 18:32 | PC.NURSE ---
pt. seems to be getting agitated. He is pacing around the room and grimacing. Nurse aware.
--- NOTE | 2019-12-07 18:51 | PC.NURSE ---
Spoke with Delaney HINTON charge at [facility] and treat for intake eval.
--- NOTE | 2019-12-07 18:55 | PC.NURSE ---
BUSINESS ASST: pt is pacing around the room and inducing vomiting into toilet and emesis bag. Nurse aware.
--- NOTE | 2019-12-07 18:57 | PC.NURSE ---
IVORY POLISHER: pt given warm blanket and light were turned off to decrease stimuli. pt is lying down, but still moaning.
--- NOTE | 2019-12-07 19:17 | PC.NURSE ---
ELECTRONIC ENGINEERING DRAFTSPERSON: pt is laying on the mattress with his head on a blanket. He is moaning into his hands loudly.
--- NOTE | 2019-12-07 19:44 | CM.SWNOTE ---
PRINCIPAL MILITARY ANALYST note PRINCIPAL MILITARY ANALYST receives call from MINA Herron. MINA states that [facility] denied acceptance of patient because patient has been receiving IV medication all day. MINA Herron states that patient does not qualify as medically cleared if he is receiving IV medication. MINA Herron states patient is unlikely to be placed tonight, and DCR will continue seeking placement for him throughout the night. PRINCIPAL MILITARY ANALYST asked if DCR had called mother and DCR states he had not and was not planning to this evening. PRINCIPAL MILITARY ANALYST will inform mother that DCR will continue seeking placement for patient. PRINCIPAL MILITARY ANALYST staffs with MARY JANE Emerson who informs that all meds can be switched to oral administration. PRINCIPAL MILITARY ANALYST staffed with Dr. Tatum and MARY JANE Emerson who agreed that all meds will be switched to oral administration. PRINCIPAL MILITARY ANALYST then called MINA Herron back to inquire further about medical clearance with an IV. Gopal states he had intended to communicate that most [facility] hospitals won't accept patient with an IV, not that he is not medically cleared. PRINCIPAL MILITARY ANALYST informed Gopal that medications will be administered orally at this point forward. Gopal informs PRINCIPAL MILITARY ANALYST that he is currently working on securing a bed at [facility] in [place], and will follow up with staff throughout the evening regarding this. PRINCIPAL MILITARY ANALYST calls patient's mother and provides update. Patient's mother requests call from staff prior to transfer to next hospital. PRINCIPAL MILITARY ANALYST will place note of this in comments section for overnight staff at ED. Pl: DCR to continue seeking placement for patient. PAVAN Cannon
--- NOTE | 2019-12-07 19:47 | PC.NURSE ---
FINE DINING SERVER: pt. is sitting on mattress and seems slightly less agitated.
[2019-12-07] MEDS: OLANZapine 2.5 MG TABLET 5 MG PO (19:50)
--- NOTE | 2019-12-07 20:00 | PC.NURSE ---
Pt is quietly pacing around the room.
--- NOTE | 2019-12-07 20:51 | PC.NURSE ---
MAINTENANCE CUSTODIAN: pt. is sitting in the corner and crying quietly.
--- NOTE | 2019-12-07 21:32 | PC.NURSE ---
SLOT FLOOR ATTENDANT: pt is pacing around the room and occasionally kneeling down to pray.
--- NOTE | 2019-12-07 21:45 | PC.NURSE ---
MINA Herron called and reports that patient was not accepted into any [facility] facilities and he will try for a facility in [place].
--- NOTE | 2019-12-07 21:48 | PC.NURSE ---
HAND OUTSIDE CUTTER: pt is sitting the corner. Patient was offered magazines and decaf coffee.
--- NOTE | 2019-12-07 23:31 | PC.NURSE ---
Pt sitting at chair and staring out the door, bouncing his leg.
[2019-12-08] MEDS: diphenhydrAMINE 25 MG TABLET 50 MG PO (00:52)
--- NOTE | 2019-12-08 08:29 | CM.SWNOTE ---
Addendum entered by PAVAN Vásquez 12/08/19 13:53: ADD: Call from Catie MINA states pt has been accepted at [facility] and Catie will call pt via video call device at 1355 for final assessment and inform pt he has been accepted. KOLBY updated RN and WALLPAPER HANGER HELPER sitter to make sure device is in room at 1355 for video call. Once complete, staff to call mother and update on d/c plan to [place] today and schedule transport. BF Addendum entered by PAVAN Vásquez 12/08/19 13:15: ADD: Spoke to Catie with [facility] via phone at 1230 and she will call [facility] [place] next to determine if they have an opening and willing to further review and will then call the ER to set up the video conference eval with pt in the next half hour. If pt meets [facility] criteria then Catie will continue process of attempting to secure placement if [place] cannot accept. Catie called back and states [facility] just requesting RN notes from the last 24 hours to review to determine if they can accept. KOLBY faxed requested clinicals to Catie and she will send to [facility] [place] as of 1315. BF Addendum entered by PAVAN Vásquez 12/08/19 11:09: BODY TEAM MEMBER secured Physician attestation of medical clearance and met bedside with pt in room 13 ED and he was able to state that he was not interested in Voluntary MH treatment at this time and preference is home with his mom although pt seems to still be breathing heavily and pacing his room with gritted teeth and visual agitation and he is willing to have video conference call via Ipad with Catie at [facility] to determine if pt still meets criteria for [facility] placement. RAE Montilla kindly faxed clinicals including med list, MD attestation, and typed affidavit from mother that was in pt's chart. Plan: BODY TEAM MEMBER to follow for coordinating video call with pt and Catie with [facility] towards determining discharge planning needs around 1200. PAVAN Vásquez Original Note: Placement follow up Per MD, pt remains on oral medications since IV meds were d/c'd yesterday early afternoon and per RN pt has been sleeping most of the senior java ui developer and now. Msg that BODY TEAM MEMBER to call Catie Bartlett, Financial Foundations Representative of [facility], at [phone]. KOLBY called Catie and she updated that for the month of December if D[facility]'s have any walkaways that they could not find placement for the day then she will be the one to call to follow up with and continue the [facility] placement attempts to help take the pressure off the initial [facility] eval as mental health has been greatly increasing the past month. Catie states she plans to complete a brief video chat with pt to confirm that he meets [facility]ITO criteria and will then begin the process of finding Involuntary Placement for the pt around noon to allow for pt to show he is completely medically cleared since IV meds d/c'd to reduce the risk of barriers to placement and requested clinicals be faxed to her at [phone] to review towards [facility]. Plan: KOLBY updated and will follow for confirming pt still involuntary for treatment and confirming clinicals faxed to Catie to review for placement. PAVAN Vásquez
[2019-12-08 08:30] VITALS: BP 140/80; PULSE 78; RESP 22; O2SAT 100
--- NOTE | 2019-12-08 09:00 | PC.NURSE ---
Pt. is sitting on the mattress breathing very heavily and deep and talking quietly to himself. Pt. has been cooperative with staff request.
[2019-12-08] MEDS: BUSPIRONE 5 MG TABLET 10 MG PO (09:23)
[2019-12-08] MEDS: diazePAM 5 MG TABLET 10 MG PO ×2 (09:23→17:02)
[2019-12-08] MEDS: BACLOFEN 10 MG TABLET PO ×2 (09:24→15:32)
[2019-12-08] MEDS: FLUoxetine 20 MG CAPSULE PO (09:24)
--- NOTE | 2019-12-08 10:48 | PC.NURSE ---
warp worker currently speaking to patient.
--- NOTE | 2019-12-08 10:49 | PC.NURSE ---
Pt. Speaking With VISION TEACHER.
--- NOTE | 2019-12-08 11:03 | PC.NURSE ---
Pt. was speaking to his mother on the phone. After the conversation the Pt. went back to his room and is pacing and talking to himself.
--- NOTE | 2019-12-08 11:22 | PC.NURSE ---
FLORICULTURIST/MEREDITH Note: introduced self to patient. Patient requested a snack. Pt. received 1/2 a tuna sandwich and lunch is ordered. Patient is continuing to pace around the room. RN notified.
[2019-12-08 12:30] VITALS: BP 154/89; PULSE 66; RESP 25; O2SAT 100
[2019-12-08] MEDS: NICOTINE 21 MG PATCH TOP (14:20)
--- NOTE | 2019-12-08 16:21 | PC.NURSE ---
Report called to Jane vasques [employer].
--- NOTE | 2019-12-08 16:32 | PC.NURSE ---
12/08/19 0045 patient was sitting in the chair in the corner of the room when mom came in to visit. Patient got upset after talking to mom, stated you are not helping by not telling them. Mom left after the conversation with the patient. Patient is now resting on the mattress.
--- NOTE | 2019-12-08 16:56 | PC.NURSE ---
12/08/19 1645 EMT here to transport patient to [facility] and is now on their way
--- NOTE | 2019-12-08 17:23 | PC.NURSE ---
Medications Saphiris (two cases) and Paliperidone (one bottle) sent with patient's wallet, sneakers, and clothing.
== END 2019-12-08 05:20 ==
PROVIDERS: Emergency Medicine; Emergency Provider Emergency Medicine; PCP Family Medicine
DX: F23 Brief psychotic disorder (principal); R45.1 Restlessness and agitation; T60.2X1A Toxic effect of other insecticides, accidental (unintentional), initial encounter; R11.2 Nausea with vomiting, unspecified
CPT/HCPCS: 36415; 80053; 80305; 80320; 80329; 81003; 85025; 93005; 96361; 96372; 96374; 96375; 96376; 99285; C9113; G0480; J1200; J1630; J2060; J2405; J3360

== ENCOUNTER 2020-03-13 17:42 | Emergency (ER) | payer BC, OTHER, MEDICAID, SELFPAY ==
[2020-03-13 17:49] VITALS: BP 134/78; PULSE 96; RESP 20; TEMP 37; O2SAT 97
--- NOTE | 2020-03-13 17:56 | PC.NURSE ---
Patient reports dog bite from [facility] a couple of days ago. Has bruise to left calf with small abrasion. No redness/swelling.
--- NOTE | 2020-03-13 17:58 | ED_ITS ---
HPI - Wound/Laceration <SHEREE Horn - Last Filed: 03/13/20 19:22> General Chief Complaint: Wound/Laceration Stated Complaint: DOG BITE Time Seen by Provider: 03/13/20 17:52 Source: patient Mode of arrival: Ambulatory History of Present Illness HPI narrative: 35yo male with a history of schizophrenia, schizoaffective disorder, and multiple substance use, presents to the emergency department for concerns about a dog bite from a Chihuahua to his right lower leg that happened approximately 4 days ago. Patient was concerned because the area now appears green. He also notes a sore on his left hand that he has been picking at. He [place] the [place], unsure of rabies vaccination or shots. Declined rabies series at this time. Patient states the but has been feeling better he is just concerned about change in color. Unsure of last Tdap. He denies any fevers, chills, nausea, vomiting, diarrhea, chest pain, shortness of breath, or any other concerns. Related Data Home Medications Medication Instructions Recorded Confirmed diazepam 10 mg PO BID 12/07/19 12/07/19 Previous Rx's Medication Instructions Recorded divalproex 250 mg tablet,extended 250 mg PO BID #180 tab 01/10/20 release 24 hr paliperidone 9 mg tablet,extended 9 mg PO .qhs #90 tab 01/10/20 release 24 hr trazodone 50 mg tablet 50 mg PO QPM #90 tab 01/10/20 mupirocin 1 applictn TOP BID #15 gram 03/13/20 Allergies Allergy/AdvReac Type Severity Reaction Status Date / Time cephalexin Allergy Mild RASH Verified 01/10/20 11:49 Review of Systems <SHEREE Horn - Last Filed: 03/13/20 19:22> Review of Systems Narrative: REVIEW OF SYSTEMS: GENERAL: Denies fever or chills. HENT: Denies head trauma. EYE: Denies double vision or vision loss. CARDIOVASCULAR: Denies syncope. MUSCULOSKELETAL: Denies weakness, or deformities. INTEGUMENTARY: Complains of dog bite, see HPI. NEURO: Denies numbness or tingling. Patient History <SHEREE Horn - Last Filed: 03/13/20 19:22> Medical History Chest pain (Acute) Former smoker (Acute) Marijuana use (Acute) RLS (restless legs syndrome) (Chronic ~1986) Schizophrenia (Chronic ~1992) Schizophrenia (Acute) Shortness of breath (Acute) Urinary frequency (Acute) Surgical History No history of previous surgery (Resolved 02/14/15) Family History Grandfather Heart disease Social History household members: family Smoking Status: Current every day smoker alcohol intake: never substance use type: marijuana Smoking Status: Current every day smoker tobacco type: vaping alcohol intake frequency: 0-2 drinks per day Substance Use Type: marijuana Exam <SHEREE Horn - Last Filed: 03/13/20 19:22> Initial Vital Signs Initial Vital Signs: Vital Signs Temperature 98.6 F 03/13/20 17:49 Pulse Rate 96 H 03/13/20 17:49 Respiratory Rate 20 03/13/20 17:49 Blood Pressure 134/78 03/13/20 17:49 Pulse Oximetry 97 03/13/20 17:49 PHYSICAL EXAMINATION: GENERAL: Well groomed, alert, and cooperative. Answers questions promptly and appropriately. Vital signs noted. HENT: Normocephalic, atraumatic. RESPIRATORY: Normal respiratory rate, trachea midline, airway patent. No stridor, nasal flaring or accessory muscle use. MUSCULOSKELETAL: Normal gait and coordination. Equal tone and mass bilaterally. EXTREMITIES: CMS intact. Moves all extremities. SKIN: Warm, dry, soft, appropriate color for ethnicity. There is a 8 cm in diameter area of green ecchymosis noted to right calf, superficial abrasions appear to be healing was scabbing. No swelling, tenderness, erythema. There is a 1 cm scab noted to back of left hand, appears to be healing, small amount of serous sanguinous discharge. No surrounding erythema. NEURO: Alert and Oriented X 3. Good coordination. PSYCH: Appropriate affect and mood. <Vandana Gambino DO - Last Filed: 03/22/20 08:04> Initial Vital Signs Initial Vital Signs: Vital Signs Temperature 98.6 F 03/13/20 17:49 Pulse Rate 96 H 03/13/20 17:49 Respiratory Rate 20 03/13/20 17:49 Blood Pressure 134/78 03/13/20 17:49 Pulse Oximetry 97 03/13/20 17:49 Course <SHEREE Horn - Last Filed: 03/13/20 19:22> Course Course Narrative: Tdap was updated. Orders Ordered: Discontinued Medications Diphtheria/Tetanus/Acell Pertussis (Adacel) 0.5 ml IM .ONCE ONE Stop: 03/13/20 17:59 Last Admin: 03/13/20 18:24 Dose: 0.5 ml Documented by: KATHLEEN Vital Signs Vital signs: Vital Signs - 8 hr 03/13/20 17:49 Temperature 98.6 F Pulse Rate 96 H Respiratory Rate 20 Blood Pressure 134/78 Pulse Oximetry 97 <Vandana Gambino DO - Last Filed: 03/22/20 08:04> Orders Ordered: Discontinued Medications Diphtheria/Tetanus/Acell Pertussis (Adacel) 0.5 ml IM .ONCE ONE Stop: 03/13/20 17:59 Last Admin: 03/13/20 18:24 Dose: 0.5 ml Documented by: KATHLEEN Vital Signs Vital signs: Vital Signs - 8 hr 03/13/20 17:49 Temperature 98.6 F Pulse Rate 96 H Respiratory Rate 20 Blood Pressure 134/78 Pulse Oximetry 97 MDM - Wound/Laceration <JazzmineSHEREE Wesley - Last Filed: 03/13/20 19:22> Medical Records Attestation: I reviewed the patient's medical records. Lab Data Attestation: I reviewed the patient's lab results. [facility] Narrative Medical decision making narrative: History and examination reveal a healing dog bite without concerns of infection, superficial scratches appeared to be healing without any concerns. No concerns for DVT given lack of tenderness. Small heal ing scab left hand without concerns of infection. Patient is hemodynamically stable, afebrile non tachycardic. Return precautions given for new or worsening symptoms. Patient agreed to plan of care verbalized understanding. Discharge Plan Departure Patient Disposition: Home Clinical Impression: Dog bite Qualifiers: Encounter type: initial encounter Qualified Code(s): W54.0XXA - Bitten by dog, initial encounter Discharge Date/Time: 03/13/20 18:28 Instructions: DI for Dog Bite Activity Restrictions/Additional Instructions: Thank you for entrusting me with your care today. As discussed, your Tdap was updated today. The dog bite is healing well, there are no signs of infection. This sore on her hand appears to be healing, I have given you some weight ointment to apply 1 to 2 times a day to the area. This was sent to [facility] Vitals indicate no sign of infection. Please follow-up with your primary provider in a few days if you have any concerns. Return emergency department for any new or worsening symptoms. Prescriptions: New mupirocin 2 % ointment 1 applictn TOP BID Qty: 15 RF: 0 No Action paliperidone 9 mg tablet extended release 24hr 9 mg PO .qhs Qty: 90 RF: 3 trazodone 50 mg tablet 50 mg PO QPM Qty: 90 RF: 3 divalproex [Depakote ER] 250 mg tablet extended release 24 hr 250 mg PO BID Qty: 180 RF: 3 diazepam 10 mg tablet 10 mg PO BID RF: 0 Referrals: Prasanth Causey MD [Primary Care Provider] - <Vandana Gambino DO - Last Filed: 03/22/20 08:04> Cosign ED Attending Elsaature Attestation: I was immediately available in the department for consultation. Documentation has been reviewed. I agree with assessment and plan.
[2020-03-13] MEDS: TET,DIPH,PERTUSS(ACELL),VAC/PF 0.5 ML SYRINGE IM (18:24)
== END 2020-03-13 18:28 | disposition home or self-care (01) ==
PROVIDERS: Emergency Provider Nurse Practitioner; PCP Family Medicine
DX: S81.851A Open bite, right lower leg, initial encounter (principal); W54.0XXA Bitten by dog, initial encounter; Z23 Encounter for immunization
CPT/HCPCS: 90471; 99283; 90715